=== PATIENT | male | born 1940 | race Caucasian/White ===

== ENCOUNTER 2024-09-06 17:41 | Inpatient (IN) | payer MEDICARE, SELFPAY ==
[2024-09-03 13:01] VITALS: BP 137/63
[2024-09-03 13:12] VITALS: BMI 30.2
--- NOTE | 2024-09-03 13:36 | ED.GENMED ---
History of Present Illness
General
Chief Complaint: Failure to Thrive
Source: patient
Exam Limitations: none
Time Seen by Provider: 09/03/24 12:59
Nursing documentation reviewed up to this point in time: agreed with
History of Present Illness
History of Present Illness:
84 yr old male brought by EMS for evaluation. Patient as per MS apparently lives alone in his apartment. it is reported by EMS that patient was living in very unsafe living conditions and patient was yelling and therefore someone called EMS.
Patient presents awake alert. When I ask him why is he is here, he does not know. He does mention that his right' deltoid hurts from a previous fall.
Pt reports he gets around with a motorized scooter.
On exam patient has an obvious swollen and red left leg but he has no complaints. He is unable to tell me how long this has been read and tells me he did not realize it was red. He denies any pain.
Phy Exam
General Physical Exam
General Presentation: no apparent distress
General age: appears stated age
General Skin: warm and dry
General Habitus: elderly
General Hydration: appears well hydrated
Cardiovascular Exam
Cardiovascular Exam: regular rate/rhythm
Course
Orders/Labs/Results
Orders:
Orders
09/03/24 13:31
IV Insert/Care/Rem.- Treatment PRN
Urinalysis Reflex To Culture Urgent
Venous Doppler Lwr Ext Left [US Periph Venous LOWER Ext LT] Urgent
Comment:
Reason For Exam: swelling /redness
09/03/24 14:05
Complete Blood Count/With Diff Urgent
Comprehensive Metabolic Panel Urgent
09/03/24 Dinner
Regular
At Your Request: Full Participation
09/03/24 15:18
Shoulder, Right, Trauma [CR Shoulder, Trauma - Right] Urgent
Comment:
Reason For Exam: trauma
09/03/24 15:22
Chest [CR Chest - 2 Views ] Urgent
Comment:
Reason For Exam: weak
09/03/24 15:25
Electrocardiogram (*1) Stat
Reason for Study: Other
Other Reason for Exam: chest pain
EKG- Treatment ONCE
09/03/24 15:26
CefTRIAXone [Rocephin] 1,000 mg IV NOW STA
09/03/24 15:29
CeFAZolin 1 GRAM [Ancef] 1 gram in 5 ml IV NOW
09/03/24 16:04
Admit/Transfer Patient As Directed
Co-Sign Provider:
Level of Care: Observation services
Assign to:: Medical/Surgical
Physician / Group: Adis Gutierrez
Diagnosis: Left leg cellulitis
PRN Pain Medication Management As Directed
May give lesser potent ordered pain med per pt: Yes
preference::
Protocol:: Medication orders for pain may be administered in a
manner that supports deferring to patient preference
when the pt is:
- Requesting an ordered lesser potent pain medication.
Least to most potent pain medications are defined
as: acetaminophen < NSAID < tramadol < opioids
(morphine, oxycodone, hydromorphone).
- Requesting a lesser dose of the same medication IF
ORDERED.
- Requesting a less intrusive route of administration
if both routes are prescribed by the provider (PO <
IV).
09/03/24 16:05
Code Status As Directed
Resuscitation Status: Full Code
09/03/24 16:07
CeFAZolin 2 GRAM [Ancef] 2 grams in 10 ml IV NOW
09/03/24 17:45
Acetaminophen [Tylenol] 650 mg PO Q4HPRN PRN
Bisacodyl [Dulcolax] 10 mg RECTAL U46BBAN PRN
Docusate W/Senna [Senokot-S] 1 tablet PO BIDPRN PRN
Furosemide [Lasix] 20 mg IV ONCE ONE
Polyethylene Glycol Powder [Miralax] 17 grams PO DAILYPRN PRN
09/03/24 17:45
WOUND/OSTOMY CONSULT Routine
Reason for Consult: leg wound
Activity As Directed
Activity Level: Bedrest
Vital Signs As Directed
Frequency: Per unit guidelines
Occupational Therapy Consult [Ot Eval And Treat] Routine
DX Deep Vein Thrombosis Video Routine
09/03/24 18:00
Enoxaparin Sodium [Lovenox] 40 mg SC QPM
09/04/24 01:00
CeFAZolin 2 GRAM [Ancef] 2 grams in 10 ml IV Q8H
09/04/24 06:00
Basic Metabolic Panel IN AM
Complete Blood Count/No Diff IN AM
Abnormal Lab Results
09/03/24
14:05
Absolute Lymphs (auto) 0.8 L 10^3/uL
(1.2-3.4)
Neutrophils % 75.3 H %
(42.2-75.2)
Lymphocytes % 12.4 L %
(20.5-51.1)
Chloride 108 H mmol/L
(98-107)
Total Protein 5.8 L g/dl
(6.3-8.2)
Albumin 3.3 L g/dl
(3.5-5.0)
09/03/24 14:05
09/03/24 14:05
Vital Signs
Initial and Last Documented VS:
Initial Vital Signs
Temp Resp BP
98.0 F 20 137/63
09/03/24 13:01 09/03/24 13:01 09/03/24 13:01
Last Documented Vital Signs
Temp Pulse Resp BP Pulse Ox
98.1 F 72 16 151/73 100
09/03/24 18:04 09/03/24 18:29 09/03/24 18:04 09/03/24 18:29 09/03/24 18:04
MDM/Problems Addressed
MDM/Problems Addressed:
As documented patient is an 84-year-old male who was brought by EMS, as per EMS patient randomly scream in his room and EMS was called.
Pt is not aware why he is here. He mentions that his right shoulder hurts from a fall 'a while ago' but other best has no complaints. On exam pt has significant swelling and redness to left leg nontender. Patient is afebrile his white count is
normal; his ultrasound shows severe cellulitis of the extremity with diffuse subcutaneous edema however no DVT.
Patient will likely need case management EMS reported the patient was in very dirty unsafe conditions.
Patient does live alone. He does report he has Meals on Wheels and gets around with a motorized scooter.
He is adamant that he' does not want to go into home.'
*Radiology
Radiology exam reviewed: radiology read reviewed
*Pulse Oximetry
Patient hypoxic: no
*EKG
Interpreted by ED Provider?: Yes
Interpretation: normal
Heart Rate: 77
Rate: normal
Rhythm: sinus
Ischemia: non-specific ST changes
*Critical Care Note
Total Time (30-74mins, 75-104mins- exclusive of procedures): Not Applicable
ED Attending Note
-
Portions of this chart may have been created with voice recognition software.� Occasional wrong word or��sound alike� substitutions may have occurred due to the inherent limitations of voice recognition software.
Discharge Plan
Departure
Patient Disposition: Admit
Date of Disposition: 09/03/24
Time of Disposition: 15:44
Admit to: Med/Surg
Admit to doctor: hospitalist
Presentation/result/management discussed w/ accepting MD/DO: Hospitalist
Patient with high blood pressure during this ER visit?: Yes
Condition: Fair
Covid-19: Not Applicable
Discharge Problem:
Cellulitis of left leg
Interventions
Interventions:
*Risk Screen - Suicide Last Done: 09/03/24 13:13
*General Assessment Last Done: 09/03/24 13:13
*Neglect/Abuse Screening Last Done: 09/03/24 13:18
*ED COVID-19 Vaccine History Last Done: 09/03/24 13:13
*Nursing Disposition Last Done: 09/03/24 18:30
Discharge Date and Time
Discharge Date/Time: 09/03/24 18:00
[2024-09-03 14:21] LABS: % Basophils 0.4 % (0-2); % Eosinophils 3.1 % (0-6); % Immature Granulocytes 0.3 % (0-0.5); % Lymphocytes 12.4 % (20.5-51.1); % Monocytes 8.5 % (1.7-9.3); % Neutrophils 75.3 % (42.2-75.2); Absolute Eosinophils 0.2 10^3/uL (0-0.7); Absolute Lymphocytes 0.8 10^3/uL (1.2-3.4); Absolute Monocytes 0.6 10^3/uL (0.1-0.6); Hematocrit 44.2 % (39.0-52.0); Hemoglobin 14.7 g/dL (13.0-18.0); Mean Corp Hgb Conc. 33.3 g/dL (33.0-37.0); Mean Corpuscular Hgb 30.8 pg (27.0-31.0); Mean Corpuscular Volume 92.7 fL (80.0-94.0); Mean Platelet Volume 10.3 fL (7.4-10.4); Nucleated Red Blood Cells % 0 % (-); Platelet Count 203 10^3/uL (130-400); Red Blood Cell Count 4.77 10^6/uL (4.70-6.10); White Blood Cell Count 6.7 10^3/uL (4.8-10.8)
[2024-09-03 14:40] LABS: ALT (SGPT) 25 U/L (0-50); AST (SGOT) 31 U/L (17-59); Albumin 3.3 g/dl (3.5-5.0); Alkaline Phosphatase 91 U/L (38-126); Blood Urea Nitrogen 12 mg/dl (9-20); Calcium 9.3 mg/dl (8.4-10.2); Carbon Dioxide 27 mmol/L (22-30); Chloride 108 mmol/L (98-107); Estimated Creatinine Clearance 65 ml/min; Glucose 82 mg/dl (70-99); Potassium 4.4 mmol/L (3.5-5.1); Sodium 139 mmol/L (135-145); Total Bilirubin 0.7 mg/dl (0.2-1.3); Total Protein 5.8 g/dl (6.3-8.2); eGFR > 60.00
[2024-09-03 15:39] VITALS: BP 128/58
[2024-09-03 15:45] VITALS: BP 128/58
--- NOTE | 2024-09-03 16:09 | HPS.HSE ---
Family Physician
-
Family Physician: INTERVIEWE UNKNOWN - PT NOT
Chief Complaint
-
behavior issues
History of Present Illness
Patient is 84-year-old male with past medical history of essential hypertension, hyperlipidemia, alcohol use, BPH was brought in by EMS after neighbors called ambulance on him because patient was noted to be yelling. Details are not very clear why
EMS sent patient to ER. In ER patient is is alert and oriented to time place and person, obviously not happy with the whole situation. Patient is not voicing any active medical issues patient lives by himself in an apartment which was reported by
EMS to be in the bad situation. Patient does not have any family or friend to help.
Patient have history of fall at some point in the past and having difficulty using the right arm. Evidently patient use electric scooter to get around but battery is .
In ER on exam patient was noted to having some left leg swelling/erythema. Patient is afebrile. Patient have some wound on left knee - not infected.
Not voicing any cardiopulmonary complaints.
Medical History
Past Medical History
Past Medical History: Reports Other
Additional Past Medical History:
essential hypertension, hyperlipidemia, alcohol use, BPH
Past Surgical History: Reports Other
Social History
Tobacco: Non-smoker
Alcohol: Occasional
Drug: None
Employment: Employed
Family History
Family History: Not pertinent
Allergies / Home Medications
Allergies reflects when Allergies were last updated in [facility].
Home Medications with original date entered in [facility]
Allergy/Medication List:
Allergies
Allergy/AdvReac Type Severity Reaction Status Date / Time
pollen extracts Allergy Unknown STUFFY Verified 07/27/08 15:46
[Pollen Extracts] NOSE AND
EXCESSIVE
SNEEZING
Home Medications
Fish Oil 2 cap PO DAILY 07/27/08
finasteride 5 mg tablet 1 tab PO DAILY 07/27/08
geriatric multivitamin-min 1 cap PO DAILY 07/27/08
metoprolol succinate 25 mg tablet,extended release 24 hr 25 mg PO DAILY 09/03/24
rosuvastatin 40 mg tablet 40 mg PO DAILY 09/03/24
Review of Systems
-
A 12 point ROS was completed and negative except as noted: Yes
Physical Exam
Vital Signs
Vital Signs
Temp Pulse Resp BP Pulse Ox
98.0 F 79 15 128/58 95
09/03/24 13:01 09/03/24 15:45 09/03/24 15:45 09/03/24 15:45 09/03/24 15:47
Physical Exam
General: No Apparent Distress
HEENT: Atraumatic
Respiratory: Clear
Cardiac: S1/S2 and Regular Rhythm; No Murmur or Rub
GI: Soft, Non Tender and Non Distended; No Organomegaly
Musculoskeletal: Edema, Left Lower Extremity (scratch edmund on the skin, superifical wound on knee), Edema, Right Lower Extremity and Other (Unable to lift right shoulder)
Skin: No Rash
Neuro: Nonfocal/grossly intact
Laboratory Results
-
09/03/24 14:05
09/03/24 14:05
Laboratory Results
Total Bilirubin 0.7 mg/dl (0.2-1.3) 09/03/24 14:05
AST 31 U/L (17-59) 09/03/24 14:05
ALT 25 U/L (0-50) 09/03/24 14:05
Alkaline Phosphatase 91 U/L (38-126) 09/03/24 14:05
Impression/Plan
-
1. Left leg cellulitis
Superficial skin abrasion
Bilateral lower extremity edema, suspecting lymphedema
-No signs of systemic infection
-Patient unable to provide any detailed information about how long patient has chronic
-Peripheral vascular ultrasound negative
-Patient got IV Ancef in ER continue for now
-leg elevation when in bed
-wound care ordered.
2. Right shoulder pain
-Shoulder x-ray official report pending
-Suspecting rotator tendon injury after fall in the past
-OT evaluation requested
3. Inadequate housing condition
-Patient have electric scooter which is not able to be charged? floral manager asked to look into it
-House condition is disheveled according to EMS
4. HLD
-Previous home med list showing patient was on Crestor, not currently taking it
5. BPH
-Previous med list showing finasteride, not on it
6. Presumed essential hypertension
-Not taking recorded Toprol-XL from previous visits. Blood pressure controlled at this point monitor
DVT prophylaxis -Lovenox
Full code
Total time spent : 77 mins
I personally saw and examined the patient.
I have reviewed all diagnostic interpretations and treatment plans as written.
Time includes patient management by me, time spent at the patients bedside, time to review lab and imaging results, discussing patient care, documentation in the medical record, and time spent with the family or caregiver and discussing care plan
with RN/Consultants.
[2024-09-03] MEDS: ANCEF 10 IV (16:24)
--- NOTE | 2024-09-03 17:54 | CM ---
CM was made aware that patient was brought from his home in [place], [place]. As per EMS, patient's home was hoarded and in deplorable condition. Patient stated that he does not have a phone in his home and he is unable to get around the apartment
because the cord on his scooter is broken. He has been calling out for his neighbors to assist him when needed.
CM will follow for further needs.
[2024-09-03 18:04] VITALS: BP 151/73
[2024-09-03] MEDS: LASIX 20 MG IV (18:29)
[2024-09-03] MEDS: LOVENOX SC ×2 (18:30→18:34)
--- NOTE | 2024-09-03 18:46 | PTCARENOTE ---
Pt admitted from ED, pulled over from stretcher to bed. Pt angry and argumentative at times. LLE red and swollen, pt does not know when this started as he didn't know his leg was red and swollen. c/o R shoulder pain 'only when he moves'. Assisted x2
to turn in bed. Pt malodorous, states he is continent, given urinal. Explained the purpose of Lasix, agreeable to medication. Pt adamantly refused SQ Lovenox despite education, MD augustin texted.
--- NOTE | 2024-09-03 20:15 | PTCARENOTE ---
Found large knife in pts bed, given to security. Security stating unable to search belongings- belongings placed in closet. Pt on bed alarm currently.
[2024-09-03 23:55] VITALS: BP 143/54
[2024-09-04] MEDS: ANCEF 10 IV ×3 (01:41→18:10)
[2024-09-04 06:00] VITALS: BMI 28.3
[2024-09-04 07:54] LABS: Hematocrit 44.3 % (39.0-52.0); Mean Corp Hgb Conc. 33.9 g/dL (33.0-37.0); Mean Corpuscular Hgb 30.8 pg (27.0-31.0); Mean Platelet Volume 10.4 fL (7.4-10.4); Platelet Count 206 10^3/uL (130-400); Red Blood Cell Count 4.87 10^6/uL (4.70-6.10); White Blood Cell Count 6.7 10^3/uL (4.8-10.8)
[2024-09-04 08:00] VITALS: BP 139/59
[2024-09-04 08:19] LABS: Blood Urea Nitrogen 12 mg/dl (9-20); Calcium 9.2 mg/dl (8.4-10.2); Carbon Dioxide 27 mmol/L (22-30); Chloride 104 mmol/L (98-107); Estimated Creatinine Clearance 60 ml/min; Glucose 92 mg/dl (70-99); Potassium 3.9 mmol/L (3.5-5.1); Sodium 140 mmol/L (135-145); eGFR > 60.00
--- NOTE | 2024-09-04 10:35 | W.PN.HOSP.TC ---
Today's Communication/Plan
-
discharge planning
Assessment / Plan
Assessment / Plan
Right shoulder xr
1. No radiographic evidence for acute fracture or dislocation.
2. 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
3. Full-thickness tear of the right rotator cuff with mild superior subluxation of the right humeral head.
4. 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

1. Left leg cellulitis
Superficial skin abrasion
Bilateral lower extremity edema, suspecting lymphedema
-No signs of systemic infection
-Patient unable to provide any detailed information about how long patient has chronic
-Peripheral vascular ultrasound negative
-Patient got IV Ancef in ER continue for now
-leg elevation when in bed
-wound care ordered.
-LLE looks much calmer today, swelling persists
2. Right shoulder pain
-Shoulder x-ray official report pending
-Suspecting rotator tendon injury after fall in the past
-pt/ot ordered.
3. Inadequate housing condition
-Patient have electric scooter which is not able to be charged? disability case manager asked to look into it
-House was in disarray according to EMS
4. HLD
-Previous home med list showing patient was on Crestor, not currently taking it
5. BPH
-Previous med list showing finasteride, not on it
6. Presumed essential hypertension
-Not taking recorded Toprol-XL from previous visits. Blood pressure controlled at this point monitor
DVT prophylaxis -Lovenox
Full code
09/04 Patient unclear who is his PCP, likely havent seen any one in years. have decision making capacity and declining LTC placement.
Anticipated Discharge: Within 24 hours
Subjective/Interval History
-
Date of Service: September 04, 2024
no complains overnight
Left leg better
Objective Data
-
Labs:
Laboratory Results
09/04/24
07:29
WBC 6.7
Hgb 15.0
Hct 44.3
Plt Count 206
Sodium 140
Potassium 3.9
Chloride 104
Carbon Dioxide 27
BUN 12
Creatinine 0.9
Glucose 92
Calcium 9.2
Vital Signs:
Vital Signs
Temp Pulse Resp BP Pulse Ox
98.1 F 65 16 139/59 99
09/04/24 08:00 09/04/24 08:00 09/04/24 08:00 09/04/24 08:00 09/04/24 08:00
I&O
09/03/24 09/04/24 09/05/24
06:59 06:59 06:59
Output Total 1325 / 1325
Balance -1325 / -1325
Review of Systems
-
Respiratory: Reports No Symptoms
Cardiac: Reports No Symptoms
Abdomen/GI: Reports No Symptoms
Physical Exam
-
General: No Apparent Distress and Comfortable
HEENT: Negative Oxygen
Respiratory: Clear to Auscultation
Cardiac: Regular Rhythm and S1/S2; Negative Murmur or Rub
GI: Soft, Nontender and Nondistended
Musculoskeletal: Edema, Right Lower Extrem and Edema, Left Lower Extrem (erythema, dry skin)
Neuro: Awake, Alert, Oriented, No Motor Deficits and Nonfocal/Grossly Intact
Psych: Calm
[2024-09-04 10:44] LABS: Urine Albumin Negative (Neg - Trace); Urine Bilirubin Negative (Negative); Urine Character Clear (Clear); Urine Color Yellow; Urine Glucose Negative (Negative); Urine Ketone Negative (Negative); Urine Leukocyte Negative (Negative); Urine Nitrite Negative (Negative); Urine Occult Blood Negative (Negative); Urine Urobilinogen Negative (Neg - 1+)
[2024-09-04 13:03] VITALS: BP 158/53; BP 159/53; BP 159/68; PULSE 90; O2SAT 90; O2SAT 98
[2024-09-04] MEDS: LASIX 20 MG PO (14:24)
[2024-09-04 15:40] VITALS: BP 150/50
--- NOTE | 2024-09-04 16:18 | CM ---
Patient seen at bedside
OBS status-reviewed form with patient. in chart
Dx: Left leg cellulitis
IA completed---previous CM note inadequate housing condition
States he lives at [facility] in [address]
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
DME: Walker, cane, power scooter
He states he receives meals on wheels
Stated has a sister who lives in [place] who he is not in touch
CM left message for contact Margarita Valverde (friend)
Denies VN/Rehab
PT/OT rec SNF
[facility] but has not been there in 2 years
Pharmacy: unable to obtain from patient
PLAN: PT/OT rec SNF
[2024-09-04] MEDS: LOVENOX SC (18:13)
--- NOTE | 2024-09-04 19:10 | PTCARENOTE ---
Received patient this am AAOx2. Pt forgetful and easily agitated. Tolerated diet well. OOB to chair with assistance x2. Pt refused Lovenox injection. Pt picked scab off left knee abrasion. Cleaned with NSS, adaptic applied an foam. Pt repositioned.
Made patient comfortable. Cont to assess patient status.
[2024-09-04 23:20] VITALS: BP 155/66
[2024-09-05] MEDS: ANCEF 10 IV ×3 (00:56→17:41)
[2024-09-05 05:03] VITALS: BMI 28.0
[2024-09-05 07:29] VITALS: BP 125/59
--- NOTE | 2024-09-05 09:53 | CM ---
Addendum entered by Jaya Manning 09/05/24 14:00:
CM spoke w/ Hailey/[facility] APS. Per Hailey, [facility] is familiar w/ pt, has offered pt services in the past, Hailey was unable to confirm w/ me if pt accepted any services. Hailey shared there were calls made to pt in the past, pt is not
currently open w/ services. CM shared concerns in the home as EMS reported the home is inadequate and pt lacks support. CM confirmed that pt has decision making capacity per chart, Hailey stated pt doesn't meet criteria for a referral as his
capacity is not a concern, unless there is abuse, neglect or exploitation.
CM will speak w/ pt to inquire on scooter supplier to see if he can get assistance w/ blood bank specialist
Addendum entered by Jaya Manning 09/05/24 13:59:
d
Original Note:
Chart reviewed for d/c planning and hospital course updates. Per chart, pt lives alone in an apartment in [place], [place]. Pt's home was reported as inadequate conditions. Pt mobilizes w/ an electric scooter at baseline, however, scooter's blood bank specialist
is broken and cannot hold a charge so pt has been having difficulties navigating in his apartment. Pt has also been experiencing falls due to his scooter not being 100% operational due to blood bank specialist being broken. Therapy recommending skilled rehab at
this time. Pt is currently admitted as OBS, does not have a qualified inpatient stay, and is not apart of the Medicare [employer] program, therefore pt will not have a covered rehab stay unless he private pays.
Pt appears to have limited familial support, pt receives Meals on Wheels services, and has not seen a PCP in years. CM attempted contact w/ pt's friend listed as his contact, left message.
CM placed call to [place] [facility] - Division of Aging Services- [phone], left request for a call back to inquire if pt is open for services and/or to make a report for safety concerns.
Pt is stable for d/c at this time. CM updated hospitalist on disposition needs.
--- NOTE | 2024-09-05 11:10 | WOUNDNOTE ---
WON RN note: Patient admitted with cellulitis of L leg, s/p fall onto R shoulder.
See H&P for complete history. Lives alone in an apt, gets meals on wheels.
PMH: Stroke, HTN,HI,CAD,SPINAL STENOSIS, Urinary incontinence-dribbles, chronic back and neck pain.
Wound Location and type/assessment: Patient admitted with: cellulitis of L leg. L leg with 2-3+ edema compared to R leg. Dry skin on legs with few abrasions mainly L knee and L lateral upper thigh. + palpable pedal pulses, wearing Medigrip size G
knee high, already on order. Heels are intact, turned with assist of PCT Jose Rafael. Sacrum and buttocks with chronic discolored skin, suspect from prolonged sitting. Mild MASD of sacrum/gluteal cleft, no open ulcers.
Appetite: Fair.
Pressure redistribution devices in place: Versa care air, turning schedule and pillow under calves.
Plan: Applied skin prep and Exuderm thin to L knee and L thigh. Will order mineral oil for moisturizer to legs. Added lisa wrap over Medigrip knee high on L leg only. Pillow placed under calves and repositioned onto R semi side lying position. Will
confirm orders with hospitalist and updated nurse. Updated care plan and will follow as needed.
Note to case management of equipment requested for discharge: VN/care givers if going home.
--- NOTE | 2024-09-05 14:22 | W.PN.HOSP.TC ---
Today's Communication/Plan
-
Disposition issue
Assessment / Plan
Assessment / Plan
NAD
Scleral Anicteric
MMM
No JVD
CTABL
RRR, S1/S2
Obese, soft, NT, ND, BS+
Warm, Dry, bilateral lower extremities wrapped in Luis Armando bandage and compression stocking
AAOx3
Calm
Right shoulder xr
1. No radiographic evidence for acute fracture or dislocation.
2. 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
3. Full-thickness tear of the right rotator cuff with mild superior subluxation of the right humeral head.
4. 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

1. Left leg cellulitis
-Continue Ancef, transition to Keflex on discharge or complete full 10-day course of antibiotic
-Superficial skin abrasion continue wound care
-Bilateral lower extremity lymphedema outpatient lymphedema clinic follow-up
-DVT study negative
-Elevate leg in bed
2. Right full-thickness rotator cuff tear
-Outpatient orthopedic follow-up
3. Inadequate housing condition
-Electric scooter which is not able to be charged? manager medical asked to look into it
-House was in disarray according to EMS
-Case management working with APS for his specific county
4. HLD
-Previous home med list showing patient was on Crestor, not currently taking it
5. BPH
-Previous med list showing finasteride, not on it
6. Presumed essential hypertension
-Not taking recorded Toprol-XL from previous visits. Blood pressure controlled at this point monitor
DVT prophylaxis -Lovenox
Full code
09/04 Patient unclear who is his PCP, likely havent seen any one in years. have decision making capacity and declining LTC placement.
Anticipated Discharge: 24 - 48 hours
Subjective/Interval History
-
Date of Service: September 05, 2024
Seen and examined. No new complaints. No acute overnight events.
Refuses to go to SNF. Wants to go home.
Social work working with his specific [facility] in [place], EPS division to figure out his housing situation as it was reported to be an adequate and in a deplorable condition. Along with his motorized scooter not working properly.
Objective Data
-
Vital Signs:
Vital Signs
Temp Pulse Resp BP Pulse Ox
98.6 F 58 20 125/59 100
09/05/24 07:29 09/05/24 07:29 09/05/24 07:29 09/05/24 07:29 09/05/24 08:00
I&O
09/04/24 09/05/24 09/06/24
06:59 06:59 06:59
Intake Total 360 / 360
Output Total 1850 / 1850
Balance -1490 / -1490
[2024-09-05 15:02] VITALS: BP 142/61
[2024-09-05] MEDS: LOVENOX SC (17:41)
[2024-09-05 23:00] VITALS: BP 139/101
[2024-09-06] MEDS: ANCEF 10 IV ×2 (01:05→10:01)
[2024-09-06 06:00] VITALS: BMI 27.6
[2024-09-06 08:16] VITALS: BP 136/65
[2024-09-06] MEDS: HYDROPHOR 1 APPLIC TOPICAL (09:57)
--- NOTE | 2024-09-06 13:29 | CM ---
Safe disposition efforts cont to ensure pt is d/c home w/ some support or assistance.
CM met w/ pt bedside. Pt stated he doesn't recall when he got his scooter or the make and model of it in order to verify what type of acid crane operator he needs, however, pt has a manual WC as alternative. Pt stated he does not have a telephone in the home
and does not have any family/friend support. CM inquired how pt has been caring for himself independently, pt simply stated 'I've been doing it all this time'. Pt refused to consider a LTC or assisted living facility stating he wants to be
independent. Pt stated he is disabled and receives social security and that no one manages his money. Pt stated his rent is taken out automatically. CM provided pt w/ transportation options that services senior [facility] residents. Pt stated
he doesn't have any money to pay for rides. CM stated the transportation arranged through [facility] has a transportation program that provides free Lyft and Uber rides to appointments. Pt could not identify his PCP or where/when he was last
seen. Pt agreeable for CM place call to [facility] as it is believed that pt is/was a pt there. CM called to [phone], spoke w/ a blade filer who was able to confirm that pt was last seen 05/2023, CM was able to assist pt w/ making an appt
w/ next available being 09/16 at 10:30 am. Pt agreeable to that appt day and time but has concerns of getting to and from, per blade filer senior care specialist [facility] CM was transferred to [facility]/senior care specialist, left message.
Pt will be mailed a packet and appt reminder paperwork. Pt stated he doesn't check his mail daily and it will be difficult getting to it considering his scooter does not work. Pt stated he could use his manual WC but due to his shoulder injury, it
will be too painful to wheel himself to his mailbox.
--- NOTE | 2024-09-06 15:27 | W.PN.HOSP.TC ---
Today's Communication/Plan
-
Assessment / Plan
Assessment / Plan
NAD
Scleral Anicteric
MMM
No JVD
CTABL
RRR, S1/S2
Obese, soft, NT, ND, BS+
Warm, Dry, bilateral lower extremities wrapped in Luis Armando bandage and compression stocking
AAOx3
Calm
Right shoulder xr
1. No radiographic evidence for acute fracture or dislocation.
2. 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
3. Full-thickness tear of the right rotator cuff with mild superior subluxation of the right humeral head.
4. 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

1. Left leg cellulitis
-Continue Ancef, transition to Keflex on discharge or complete full 10-day course of antibiotic
-Superficial skin abrasion continue wound care
-Bilateral lower extremity lymphedema outpatient lymphedema clinic follow-up
-DVT study negative
-Elevate leg in bed
2. Right full-thickness rotator cuff tear
-Outpatient orthopedic follow-up
3. Inadequate housing condition
-Electric scooter which is not able to be charged? housing case manager asked to look into it
-House was in disarray according to EMS
-Case management working with APS for his specific county
4. HLD
-Previous home med list showing patient was on Crestor, not currently taking it
5. BPH
-Previous med list showing finasteride, not on it
6. Presumed essential hypertension
-Not taking recorded Toprol-XL from previous visits. Blood pressure controlled at this point monitor
DVT prophylaxis -Lovenox
Full code
09/04 Patient unclear who is his PCP, likely havent seen any one in years. have decision making capacity and declining LTC placement.
Anticipated Discharge: Within 24 hours
Subjective/Interval History
-
Date of Service: September 06, 2024
Seen and examined. No new complaints. No acute overnight events.
Objective Data
-
Vital Signs:
Vital Signs
Temp Pulse Resp BP Pulse Ox
97.5 F 59 18 136/65 98
09/06/24 08:16 09/06/24 08:16 09/06/24 08:16 09/06/24 08:16 09/06/24 08:16
I&O
09/05/24 09/06/24 09/07/24
06:59 06:59 06:59
Intake Total 360 / 360 300 / 300
Output Total 1850 / 1850 1375 / 1375 150 / 150
Balance -1490 / -1490 -1075 / -1075 -150 / -150
[2024-09-06] MEDS: LOVENOX SC (18:20)
[2024-09-06] MEDS: ANCEF IV (18:20)
--- NOTE | 2024-09-06 18:20 | PTCARENOTE ---
This RN attempted to give pt antibiotic. Pt adamantly refused stating 'I've had enough.' RN educated patient on importance of taking antibiotics as prescribed Pt continues to refuse despite medication education.
[2024-09-06 23:11] VITALS: BP 132/60
[2024-09-07] MEDS: ANCEF 10 IV ×3 (01:10→17:15)
[2024-09-07 07:46] VITALS: BP 122/59
[2024-09-07] MEDS: HYDROPHOR 1 APPLIC TOPICAL (08:58)
--- NOTE | 2024-09-07 09:39 | CM ---
CM placed call to [facility] coding quality coordinator, Marilia [phone] to inquire about placing referral for pt. Per Marilia, they are not taking any new referrals at this time due to limited staffing.
CM placed a call to [facility], spoke w/ intake and explained pt is without family, friend, community support and is needing home services to include PT, OT, SUPPLY OFFICER, registered medical transcriptionist. CM was informed that flocculator operator are limited in pt's area and
will replace w/ OT. CM informed that pt has a following PCP at [facility] w/ appt scheduled for 09/16 and if pt is able to be serviced prior to appt. CM was told that as long as pt's PCP is willing to sign off on HH orders, they can accept for
services prior to appt. CM informed that pt is without a phone at this time, intake shared that outreach for an initial intake would be difficult as they no longer do pop up home visits due to COVID, safety, etc. Pt's referral can still be accepted
and reviewed by clinical but without a phone, it will be difficult to do an intake w/ pt.
CM updated hospitalist, sharing concerns about pt and lack of support and assistance that he has. Hospitalist to order psych consult to evaluate pt's capacity at this time.
Plan: Pending psych consult
--- NOTE | 2024-09-07 12:08 | CON.MD ---
Addendum entered and electronically signed by Noemy Pierre MD 09/07/24 12:27:
nb dr nura luque also found him to have capacity.
Original Note:
Consultation - Medical
-
patient seen chart reviewed. spoke at length with nursing and with case mgt. the patient is an 84 year old male who was brought in by ems as a neighbor called the police bc he was yelling . he was found to have swollen area on his left leg as well
as a rotator cuff tear. patient has hx of htn hld etoh use in the past and arthritis. this consult was ordered for capacity. the patient has refused snf at this point. he admits he cannot walk but does not know why. he is aware of poor balance but
can stand if he can hold on to something. he lives in an apartment complex called [facility] in [place]. he explained to me that he is able to care of all of his needs by maneuvering around with a motorized scooter. his scooter
thought is not working now bc he needs a new customs examiner which he has been unable to secure. he does not currently have a phone. he had a phone but it is 'lost'. he says he received meals on wheels which is enough food for each day and if he is hungry
he was able to get something delivered but now his phone is gone. he is adamantly opposed to going anywhere but home at this point and says he is 'tired' of this place. there is a woman [facility] ([place] whom he has been calling to help
with phone / scooter but she has not been helpful of late. says 'you have to tell her three times what she should 'get' on the first go around. the patient has no friends or relatives. he never no kids he has a sis in [place] but has not been
in touch for years. 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 he says 'my father lived to 100 yrs and three months...i will live to 90 at least. ' he reads to pass the time. he says he is not depressed or anxious. he has not had psych issues in the past.
he is fully oriented knows the president 'i'm a lifelong libertarian i never voted democratic....' he denies hallucinations. no psychosis that i could see. patient says he needs no meds so he does not know his local pharmacy name .
past psych hx none
medical hx htn hld hx in the past of etoh use denies abuse osteoarth rotator cuff injury labs look ok. did not see b12 folate or tsh which i will order hx bph w finasteride rx which he does not take
fh non contributory
social hx see above
mse alert ox3 more or less cooperative he was a bit on the ornery side . speech and thought process goal oriented mood is irritable affect a little labile no si no psychosis aver intelli insight judgment fair
dx adjustment d/o
recommendations i do think patient has capacity to make his own decisions. he has made it to 84 at this point as he points out and does not at this point have life threatening illness at this moment. that said he needs assist with certain issues.
he explained to me how he gets to bathroom with his scooter which needs to be functional. he needs a phone. he said he would be very amenable to in home therapy but he needs a phone to do this. i would say he needs social service /case management assistant
services at this point and if they could remedy these two factors i would dc him to home. if he needs an antibiotic it could be called to local pharm paid for with his insurance delivered here to for him to take at home. he also needs readers
(glasses) which i will him later today. psych will sign off.
--- NOTE | 2024-09-07 13:10 | W.PN.HOSP.TC ---
Today's Communication/Plan
-
Assessment / Plan
Assessment / Plan
NAD
Scleral Anicteric
MMM
No JVD
CTABL
RRR, S1/S2
Obese, soft, NT, ND, BS+
Warm, Dry, bilateral lower extremities wrapped in Luis Armando bandage and compression stocking
AAOx3
Calm
Right shoulder xr
1. No radiographic evidence for acute fracture or dislocation.
2. 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
3. Full-thickness tear of the right rotator cuff with mild superior subluxation of the right humeral head.
4. 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

1. Left leg cellulitis
-Continue Ancef, transition to Keflex on discharge or complete full 10-day course of antibiotic
-Superficial skin abrasion continue wound care
-Bilateral lower extremity lymphedema outpatient lymphedema clinic follow-up
-DVT study negative
-Elevate leg in bed
2. Right full-thickness rotator cuff tear
-Outpatient orthopedic follow-up
3. Inadequate housing condition
-Electric scooter which is not able to be charged? slot shift manager asked to look into it
-House was in disarray according to EMS
-Case management working with APS for his specific county
4. HLD
-Previous home med list showing patient was on Crestor, not currently taking it
5. BPH
-Previous med list showing finasteride, not on it
6. Presumed essential hypertension
-Not taking recorded Toprol-XL from previous visits. Blood pressure controlled at this point monitor
DVT prophylaxis -Lovenox
Full code
Will continue to work with social work and case management to figure out how to get back to get him antibiotics along with outpatient routine follow-up and care.
He does not have a phone nor transportation. His motorized scooter is not working at this time.
Anticipated Discharge: Within 24 hours
Subjective/Interval History
-
Date of Service: September 07, 2024
Seen and examined. No new complaints. No acute overnight events.
Objective Data
-
Vital Signs:
Vital Signs
Temp Pulse Resp BP Pulse Ox
98 F 66 18 122/59 100
09/07/24 07:46 09/07/24 07:46 09/07/24 07:46 09/07/24 07:46 09/07/24 08:50
I&O
09/06/24 09/07/24 09/08/24
06:59 06:59 06:59
Intake Total 300 / 300 960 / 960
Output Total 1375 / 1375 400 / 400
Balance -1075 / -1075 560 / 560
[2024-09-07 15:18] VITALS: BP 156/64
[2024-09-07] MEDS: LOVENOX SC (17:15)
[2024-09-07 23:55] VITALS: BP 142/53
[2024-09-08] MEDS: ANCEF 10 IV ×2 (00:23→09:30)
[2024-09-08 08:20] VITALS: BP 145/68
[2024-09-08] MEDS: HYDROPHOR 1 APPLIC TOPICAL (09:29)
--- NOTE | 2024-09-08 10:51 | W.PN.HOSP.TC ---
Today's Communication/Plan
-
More than 30 minutes spent in discharge including
Final examination of the patient
Summarizing hospital stay
Instructions for continuing care to all relevant caregivers
Preparation of discharge records, prescriptions, and referral forms
Total time spent (in minutes): 33mins
Assessment / Plan
Assessment / Plan
NAD
Scleral Anicteric
MMM
No JVD
CTABL
RRR, S1/S2
Obese, soft, NT, ND, BS+
Warm, Dry, bilateral lower extremities wrapped in Luis Armando bandage and compression stocking
AAOx3
Calm
Right shoulder xr
1. No radiographic evidence for acute fracture or dislocation.
2. 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
3. Full-thickness tear of the right rotator cuff with mild superior subluxation of the right humeral head.
4. 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

1. Left leg cellulitis
-Continue Ancef, transition to Keflex on discharge or complete full 10-day course of antibiotic
-Superficial skin abrasion continue wound care
-Bilateral lower extremity lymphedema outpatient lymphedema clinic follow-up
-DVT study negative
-Elevate leg in bed
2. Right full-thickness rotator cuff tear
-Outpatient orthopedic follow-up
3. Inadequate housing condition
-Electric scooter which is not able to be charged? manager baby asked to look into it
-House was in disarray according to EMS
-Case management working with APS for his specific county
4. HLD
-Previous home med list showing patient was on Crestor, not currently taking it
5. BPH
-Previous med list showing finasteride, not on it
6. Presumed essential hypertension
-Not taking recorded Toprol-XL from previous visits. Blood pressure controlled at this point monitor
DVT prophylaxis -Lovenox
Full code
DC home
Outpatient PCP follow up
[facility] written [facility]
Anticipated Discharge: Today
Subjective/Interval History
-
Date of Service: September 08, 2024
seen and examined. no new complaints. no acute overnight
wants to go home
-does not have transportation
-does not have a cell phone
-does not know pharamcy
Objective Data
-
Vital Signs:
Vital Signs
Temp Pulse Resp BP Pulse Ox
98 F 73 18 145/68 100
09/08/24 08:20 09/08/24 08:20 09/08/24 08:20 09/08/24 08:20 09/08/24 08:20
I&O
09/07/24 09/08/24 09/09/24
06:59 06:59 06:59
Intake Total 960 / 960 920 / 920
Output Total 400 / 400 980 / 980 150 / 150
Balance 560 / 560 -60 / -60 -150 / -150
--- NOTE | 2024-09-08 10:53 | W.DCSUMMARY ---
Discharge Summary
Discharge Data
Date of Admission: 09/03/24
Date of Discharge: 09/08/24
-
Pending Results: No
Hospital Course
84-year-old male with past medical history of essential hypertension, hyperlipidemia, alcohol use, BPH
Presented with left lower extremity cellulitis. Started on IV antibiotics with improvement. Transition to p.o. Keflex 500 mg 4 times daily x 10 additional days. Additionally had complaints of right shoulder pain shoulder x-ray was obtained
demonstrated a full-thickness rotator cuff tear. Outpatient orthopedic follow-up. Will need outpatient follow-up with PCP orthopedics. Will provide home care as well.
Wound Care Instructions
L knee and lateral thigh: clean with soap and water, skin prep periwound and then Exuderm thin(hydrocolloid) can secure with tegaderm as needed. Change q 2 days and prn drainage.
mineral oil to legs and feet daily.
Both legs: Medigrip size G knee high daily, can remove at hs
L leg only- lisa wrap over Medigrip knee high daily, can remove at hs
Follow up at wound care center if wounds not healing, call for an appointment.
Discharge Plan
-
Patient Disposition: Home with Home Care
Discharge Diagnosis/Procedures: LLE cellulitis
Diet: As tolerated
Activity: As tolerated
Activity Restrictions/Additional Instructions:
Presented with left lower extremity cellulitis. Started on IV antibiotics with improvement. Transition to p.o. Keflex 500 mg 4 times daily x 10 additional days. Additionally had complaints of right shoulder pain shoulder x-ray was obtained
demonstrated a full-thickness rotator cuff tear. Outpatient orthopedic follow-up. Will need outpatient follow-up with PCP orthopedics. Will provide home care as well.
Wound Care Instructions
L knee and lateral thigh: clean with soap and water, skin prep periwound and then Exuderm thin(hydrocolloid) can secure with tegaderm as needed. Change q 2 days and prn drainage.
mineral oil to legs and feet daily.
Both legs: Medigrip size G knee high daily, can remove at hs
L leg only- lisa wrap over Medigrip knee high daily, can remove at hs
Follow up at wound care center if wounds not healing, call for an appointment.
Referrals:
Connor Evans MD [Active] - in two to three weeks (shoulder full thickness rotator cuff tear)
UNKNOWN - PT NOT,INTERVIEWE [Unknown Provider] -
Prescriptions:
New
cephalexin 500 mg capsule
500 mg PO QID 10 Days Qty: 40 0RF
Continued
finasteride 5 MG tablet
1 tab PO DAILY
Patient Comments:
HAVEN'T TAKEN IN LONG TIME
geriatric multivitamin-min 1 CAP capsule
1 cap PO DAILY
Fish Oil
2 cap PO DAILY
metoprolol succinate 25 mg tablet extended release 24 hr
25 mg PO DAILY
rosuvastatin 40 mg tablet
40 mg PO DAILY
Discharge Orders:
Discharge Patient (As Directed); Ordered 09/08/24
Ordered By: Martin Gutierrez
Discharge Date and Time
Print Language: ITALIAN
--- NOTE | 2024-09-08 11:31 | CM ---
Addendum entered by Jaya Manning 09/08/24 12:16:
received a call from RUBEN [facility], who stated she has been calling around to locate pt this past week and she was not aware of him being in the hospital or which hospital he was taken to. Antonio stated she has
been following pt who is a and that she's been seeing pt weekly to explain his housing condition and his risk of homelessness as pt's apartment complex has been trying to get pt out since last October serving letters/warnings, etc. due to his
housing condition. Antonio additionally explained his home is covered in feces and urine, pt falls a lot, and drinks heavily. Antonio stated she has been trying to explain to pt his risk of homelessness and allowing the [facility] to place him in a higher
level of care but he refuses. Antonio stated pt is not able to return to his apartment as he has been evicted as of today. Antonio stated the [place] has called APS several times w/ no success or assistance. Antonio stated the [place] has connected pt w/ a
clinical social worker, behavior therapist and an aide. Antonio stated the aides were possibly not doing their job or pt was refusing the help. Antonio stated they are unable to place pt in a penitentiary because if he was to fall that'll be a risk for the [facility].
Exploring housing would be difficult due to pt being non-ambulatory and using a motorized scooter. Per Antonio, the [facility] does not know what else to do with pt but offer to place him in a nursing facility. provided director's phone number for
Antonio to call and inform director of this information.
Original Note:
Chart reviewed. Psych evaluated pt yesterday to determine capacity. Psych deemed pt having capacity to make his own decisions.
Pt is requiring PO abx at d/c, however, pt does not have a pharmacy and is limited in transportation to get medication. CM director spoke w/ hospital pharmacy and are able to fill pt's script and provide to pt to take at d/c. Pharmacy will need a
script from attending and approved payment through the [facility]. CM spoke w/ Haley/[facility] informing of pt needing abx and without means to get this himself. Haley agreeable to $8.40 cost, requested for CM to text name of abx, szymanski and pt initials.
Spoke w/ hospitalist, informed of script needed to be sent to pharmacy, hospitalist used tubing system to send. VN order placed, CM sent referral to [facility] via fax to [phone].
CM spoke w/ transportation technician about transport for pt. Determining which method would be appropriate and safe considering pt lives alone, assist x2, housing condition, etc.
CM to parts picker prescription from pharmacy today when ready. Pt will d/c home today once transportation is confirmed.
Plan: Home. [facility] HH referred to.
[2024-09-08 12:02] VITALS: BP 113/76
[2024-09-08 15:10] VITALS: BP 113/76
--- NOTE | 2024-09-08 16:37 | CM ---
[place] [facility]- no [place] policy on file.
[2024-09-08] MEDS: LOVENOX SC (17:58)
[2024-09-08] MEDS: ANCEF IV (18:00)
[2024-09-08 23:40] VITALS: BP 114/85
[2024-09-09] MEDS: ANCEF IV (00:14)
[2024-09-09] MEDS: TYLENOL 650 MG PO ×2 (03:48→09:51)
--- NOTE | 2024-09-09 06:37 | PTCARENOTE ---
Pt aaox3 able to make his needs known.Pt non-complaint with nursing care,refusing medications,S4nlreq, refusing dressing change,angry & irritated when trying to provide care or trying to explain need of IV antibiotics.Call perez in reach.Plan of care
continued.Pt on bed alarm for safety.
[2024-09-09 07:04] VITALS: BP 121/49
--- NOTE | 2024-09-09 09:27 | CM ---
Addendum entered by Amy Singletary 09/09/24 13:53:
Spoke with Kathryn re [place] legal services. Per Kathryn patient has been in contact with [employer] [place] multiple times.
Addendum entered by Amy Singletary 09/09/24 13:20:
Copy of eviction noticed, emailed to CM. Copy presented to patient.
Patient unable to read since he has no glasses with him and CM offered to read to patient.
Patient agreeable to CM reading document to him. Copy placed n RED folder in patients room.
Addendum entered by Amy Singletary 09/09/24 12:10:
CM contacted Kathryn Webster p#[phone] [facility] [place], from patients room so they could speak.
Kathryn reviewed patient pending eviction and stated to patient he has received multiple certified and [employer] notices re eviction, Patient stated if he knew, he would have hired an sports attorney. Kathryn also reviewed the condition of his apartment stating
there was feces, multiple liqueur bottles and unkempt. Patient stated it may have been untidy but that is only due to him not being able to get round on his scooter due to battery problems or wiring problems. Patient denied drinking too much alcohol
and said he does consume, but not enough to get drunk because he does not like the feeling. Kathryn also informed patient his car would be towed due to flat tires for some time. Patient stated he did not know tires were flat and they just need to be
inflated. Kathryn offered assistance with transitional housing and patient adamantly refused saying he would only go to his current home address. Patient stating he wants his own sports attorney to fight this in court. Patient again said he was never told
any of this and Kathryn offered to send information to the patient.
CM spoke with Kathryn after leaving the room, per Kathryn when her CM from [place] went to patients home to she needed to wear a protective suit due to conditions. Multiple liqueur bottles, not clean, feces around the apartment. Multiple complaints from
other tenants. Kathryn confirmed eviction process has been ongoing. Information to be emailed to department for patient.
Addendum entered by Amy Singletary 09/09/24 10:55:
CM contacted Antonio from patients room, Antonio explained to patient she has been working with him prior to admission, he had no recollection. Antonio explained that patient cannot go back into his apartment at this time, he is locked out, cannot
return there and went over why he cannot return. Antonio explained Kathryn from [place] will be assisting him for a rehab facility.
Immediately following phone call patient upset and frustrated stating I came here by ambulance i can go back by ambulance. CM, explained that he cannot ambulate and his scooter is not working he cannot get around at this time and requires therapy.
CM also reinforced that he is not able to return to his apartment. Patient again does not understand why he cannot return. Case manger explained that he will not be able to get in, patient stated he has money and will get a medical doctor nuclear medicine. CM said lets see
if Kathryn can assist and explained again that Kathryn was with the [facility] and was trying to assist him with rehab and residency.
Addendum entered by Amy Singletary 09/09/24 09:58:
Patient phone number in room [phone], patient aware Antonio felix be calling (he does not remember Suzhao)
Patient seems very irritated by CM speaking with him and wants to go back to his home. Patient requesting and toothpick and angry that we do not have toothpicks here.
Await TC from Antonio.
Original Note:
TC to [place] p# [phone] to see if she spoke with patient about his eviction and housing.
Per Antonio, she was unable to contact patient, no one answered phone.
CM will verify patient phone number and ask him to please answer when call comes in, he should know Antonio since she has been working with him for the past year.
[2024-09-09] MEDS: ANCEF 10 IV ×2 (09:47→17:00)
[2024-09-09] MEDS: HYDROPHOR 1 APPLIC TOPICAL (09:47)
--- NOTE | 2024-09-09 10:20 | W.PN.HOSP.TC ---
Today's Communication/Plan
-
Disposition issue
Assessment / Plan
Assessment / Plan
NAD
Scleral Anicteric
MMM
No JVD
CTABL
RRR, S1/S2
Obese, soft, NT, ND, BS+
Warm, Dry, bilateral lower extremities wrapped in Luis Armando bandage and compression stocking
AAOx3
Calm
Right shoulder xr
1. No radiographic evidence for acute fracture or dislocation.
2. 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
3. Full-thickness tear of the right rotator cuff with mild superior subluxation of the right humeral head.
4. 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

1. Left leg cellulitis
-Continue Ancef, transition to Keflex on discharge or complete full 10-day course of antibiotic
-Superficial skin abrasion continue wound care
-Bilateral lower extremity lymphedema outpatient lymphedema clinic follow-up
-DVT study negative
-Elevate leg in bed
2. Right full-thickness rotator cuff tear
-Outpatient orthopedic follow-up
3. Inadequate housing condition
-Electric scooter which is not able to be charged? traffic incident management manager asked to look into it
-House was in disarray according to EMS
-Case management working with APS for his specific county
4. HLD
-Previous home med list showing patient was on Crestor, not currently taking it
5. BPH
-Previous med list showing finasteride, not on it
6. Presumed essential hypertension
-Not taking recorded Toprol-XL from previous visits. Blood pressure controlled at this point monitor
DVT prophylaxis -Lovenox
Full code
Unable to discharge home as he is currently being evicted. Case management working on disposition
Anticipated Discharge: Within 24 hours
Subjective/Interval History
-
Date of Service: September 09, 2024
Seen and examined. No new complaints. No acute overnight events.
Updated by care management that he is currently being evicted from his apartment. I discussed this with him. He started becoming agitated as he states why I been nothing but great at this apartment building. Please 21 he may being affected. This
does not make any sense. All I want to do is go back to my apartment.
Objective Data
-
Vital Signs:
Vital Signs
Temp Pulse Resp BP Pulse Ox
98.5 F 60 20 121/49 99
09/09/24 07:04 09/09/24 07:04 09/09/24 07:04 09/09/24 07:04 09/09/24 07:04
I&O
09/08/24 09/09/24 09/10/24
06:59 06:59 06:59
Intake Total 920 / 920 1340 / 1340
Output Total 980 / 980 750 / 750
Balance -60 / -60 590 / 590
[2024-09-09 15:31] VITALS: BP 148/61
--- NOTE | 2024-09-09 16:28 | PTCARENOTE ---
Pt AAO x3, very argumentive; refused to participate in care at times, needs frequent re-statement of plan of care/DC plans. Pt BURNS PAIUTE. Pt very angry re: DC ;stated 'No one told me I can't go home'; pt insistent he is going home to his previous
apartment. MEEKS; OOB to chair/BSC with assist x2/walker, pt needs much encouragement to participate in OOB activity/positioning. VSS. On room air- pulse ox 98%, no SOB noted. Abd large, soft, onur regular diet well. Voids in uri al; spills
urinal/incont at times. Resting in bed at present. Will continue to monitor.
[2024-09-09] MEDS: LOVENOX SC (17:00)
[2024-09-09 23:17] VITALS: BP 143/60
[2024-09-10] MEDS: ANCEF 10 IV ×3 (00:35→17:11)
[2024-09-10 07:55] VITALS: BP 140/58
[2024-09-10] MEDS: HYDROPHOR 1 APPLIC TOPICAL (10:06)
--- NOTE | 2024-09-10 13:28 | W.PN.HOSP.TC ---
Today's Communication/Plan
-
Assessment / Plan
Assessment / Plan
NAD
Scleral Anicteric
MMM
No JVD
CTABL
RRR, S1/S2
Obese, soft, NT, ND, BS+
Warm, Dry, bilateral lower extremities wrapped in Luis Armando bandage and compression stocking
AAOx3
Calm
Right shoulder xr
1. No radiographic evidence for acute fracture or dislocation.
2. 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
3. Full-thickness tear of the right rotator cuff with mild superior subluxation of the right humeral head.
4. 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

1. Left leg cellulitis
-Continue Ancef, transition to Keflex on discharge or complete full 10-day course of antibiotic
-Superficial skin abrasion continue wound care
-Bilateral lower extremity lymphedema outpatient lymphedema clinic follow-up
-DVT study negative
-Elevate leg in bed
2. Right full-thickness rotator cuff tear
-Outpatient orthopedic follow-up
3. Inadequate housing condition
-Electric scooter which is not able to be charged? it application development manager asked to look into it
-House was in disarray according to EMS
-Case management working with APS for his specific county
4. HLD
-Previous home med list showing patient was on Crestor, not currently taking it
5. BPH
-Previous med list showing finasteride, not on it
6. Presumed essential hypertension
-Not taking recorded Toprol-XL from previous visits. Blood pressure controlled at this point monitor
DVT prophylaxis -Lovenox
Full code
Unable to discharge home as he is currently being evicted. Case management working on disposition
Anticipated Discharge: > 48 hours
Subjective/Interval History
-
Date of Service: September 10, 2024
Seen and examined. Became argumentative when I informed him that he was being infected. He was okay to be evicted I would need to be taken to court to be infected and that has not happened yet. Therefore I do have a place to live. Informed him
that in the red flow O2 that is sitting on his dinner tray table there is a letter in there that has been brought in by case management saying that he has being infected.
Objective Data
-
Vital Signs:
Vital Signs
Temp Pulse Resp BP Pulse Ox
98.3 F 63 18 140/58 99
09/10/24 07:55 09/10/24 07:55 09/10/24 07:55 09/10/24 07:55 09/10/24 10:05
I&O
09/09/24 09/10/24 09/11/24
06:59 06:59 06:59
Intake Total 1340 / 1340 1440 / 1440
Output Total 750 / 750 1300 / 1300
Balance 590 / 590 140 / 140
[2024-09-10 15:20] VITALS: BP 136/71
[2024-09-10] MEDS: LOVENOX SC (17:12)
[2024-09-10 22:56] VITALS: BP 138/55
[2024-09-11] MEDS: ANCEF 10 IV ×3 (00:56→17:15)
[2024-09-11 07:20] VITALS: BP 109/56
[2024-09-11] MEDS: HYDROPHOR 1 APPLIC TOPICAL (08:32)
--- NOTE | 2024-09-11 10:02 | W.PN.HOSP.TC ---
Today's Communication/Plan
-
iv antibiotics for rle cellulitis with transition to keflex 500mg qid (full 10day course of atb)once CM/SW has disposition
-unable to dc as he is activelly being evicted from his current dwelling
-pscyh evaled he has capacity
Assessment / Plan
Assessment / Plan
NAD
Scleral Anicteric
MMM
No JVD
CTABL
RRR, S1/S2
Obese, soft, NT, ND, BS+
Warm, Dry, bilateral lower extremities wrapped in Luis Armando bandage and compression stocking
AAOx3
Calm
Right shoulder xr
1. No radiographic evidence for acute fracture or dislocation.
2. 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
3. Full-thickness tear of the right rotator cuff with mild superior subluxation of the right humeral head.
4. 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

1. Left leg cellulitis
-Continue Ancef, transition to Keflex on discharge or complete full 10-day course(8/10days) of antibiotic on dc
-Superficial skin abrasion continue wound care
-Bilateral lower extremity lymphedema outpatient lymphedema clinic follow-up
-DVT study negative
-Elevate leg in bed
2. Right full-thickness rotator cuff tear
-Outpatient orthopedic follow-up
3. Inadequate housing condition
-Electric scooter which is not able to be charged? commissary manager asked to look into it
-House was in disarray according to EMS
-Case management working with APS for his specific county
4. HLD
-Previous home med list showing patient was on Crestor, not currently taking it
5. BPH
-Previous med list showing finasteride, not on it
6. Presumed essential hypertension
-Not taking recorded Toprol-XL from previous visits. Blood pressure controlled at this point monitor
DVT prophylaxis -Lovenox
Full code
Unable to discharge home as he is currently being evicted. Case management working on disposition
Anticipated Discharge: 24 - 48 hours
Subjective/Interval History
-
Date of Service: September 11, 2024
seen and examined
no new complaints
no acute overnight events
wants to go home
Objective Data
-
Vital Signs:
Vital Signs
Temp Pulse Resp BP Pulse Ox
98.1 F 69 20 109/56 99
09/11/24 07:20 09/11/24 07:20 09/11/24 07:20 09/11/24 07:20 09/11/24 07:20
I&O
09/10/24 09/11/24 09/12/24
06:59 06:59 06:59
Intake Total 1440 / 1440 1200 / 1200
Output Total 1300 / 1300 1150 / 1150
Balance 140 / 140 50 / 50
[2024-09-11 15:15] VITALS: BP 116/55
[2024-09-11] MEDS: LOVENOX 40 MG SC (17:15)
[2024-09-11] MEDS: TYLENOL 650 MG PO (21:23)
[2024-09-11 23:53] VITALS: BP 147/66
[2024-09-12] MEDS: ANCEF 10 IV (01:31)
[2024-09-12 07:25] VITALS: BP 133/55
[2024-09-12] MEDS: ANCEF IV ×2 (09:19→09:30)
[2024-09-12] MEDS: HYDROPHOR 1 APPLIC TOPICAL (09:19)
--- NOTE | 2024-09-12 13:22 | W.PN.HOSP.TC ---
Today's Communication/Plan
-
Continue antibiotic
Placement
Assessment / Plan
Assessment / Plan
#Left leg cellulitis
-Continue Ancef, transition to Keflex on discharge or complete full 10-day course(9/10days) of antibiotic
-Superficial skin abrasion continue wound care
-Bilateral lower extremity lymphedema outpatient lymphedema clinic follow-up
-DVT study negative
-Elevate leg in bed
#Right full-thickness rotator cuff tear
-Outpatient orthopedic follow-up
#Inadequate housing condition
-Electric scooter which is not able to be charged? health practice manager asked to look into it
-House was in disarray according to EMS
-Case management working with APS for his specific county
#HLD
-Previous home med list showing patient was on Crestor, not currently taking it
#BPH
-Previous med list showing finasteride, not on it
#Presumed essential hypertension
-Not taking recorded Toprol-XL from previous visits. Blood pressure controlled at this point monitor
DVT prophylaxis -Lovenox
Full code
Unable to discharge home as he is currently being evicted. Case management working on disposition
Anticipated Discharge: > 48 hours
Subjective/Interval History
-
Date of Service: September 12, 2024
Seen and examined at the bedside. No acute events reported overnight. AFVSS this morning
Day 9/10 of antibiotics. Case management still searching for placement
He denies any new complaints and states he feels well
Objective Data
-
Vital Signs:
Vital Signs
Temp Pulse Resp BP Pulse Ox
97.8 F 64 18 133/55 99
09/12/24 07:25 09/12/24 07:25 09/12/24 07:25 09/12/24 07:25 09/12/24 07:25
I&O
09/11/24 09/12/24 09/13/24
06:59 06:59 06:59
Intake Total 1200 / 1200 1440 / 1440
Output Total 1150 / 1150 825 / 825
Balance 50 / 50 615 / 615
Review of Systems
-
History Source: Patient
All other systems: Reviewed and negative
Physical Exam
-
General: Well Developed, No Apparent Distress and Comfortable
HEENT: Normocephalic, Atraumatic and Moist Mucous Membranes
Respiratory: Clear to Auscultation and Non Labored Respirations
Cardiac: Regular Rhythm and S1/S2; Negative Murmur, Rub or Gallop
GI: Soft, Nontender, Nondistended and Normal Bowel Sounds
Musculoskeletal: No Clubbing, No Cyanosis and No Edema
Skin: Warm, Dry and Normal Turgor; Negative Rash
Neuro: AO x 3 and Nonfocal/Grossly Intact
Psych: Calm
--- NOTE | 2024-09-12 14:13 | CM ---
Addendum entered by Amy Singletary 09/12/24 14:56:
Went back to see patient to see if he is agreeable to skilled rehab. patient with no recollection of prior conversation.
Again stated he wanted to go to his home and stated address.
CM explained that he is unable to return there and has received the eviction notice to which he replied ' I have not. I didn't do anything. They cannot evict me without going to court. '
CM showed patient eviction notice and he did not recall it being given to him and me reading it to him on Thursday and wanted me to go over it again. As CM started to read it he spoke back saying its not true and then started to use urinal, and CM
left room.
will continue d/c efforts, patient stating [facility] is to far from where he lives.
Application for VA received.
Original Note:
Spoke with Nilam from [facility] in [facility] [phone] ext [phone] re STR
she will fax an application to to be filled out.
CM will continue to work with patient to see if he will agree to STR.
[2024-09-12 15:20] VITALS: BP 130/55
[2024-09-12] MEDS: LOVENOX SC ×2 (17:22→17:47)
[2024-09-12] MEDS: KEFLEX 500 MG PO ×2 (17:22→21:15)
[2024-09-12 23:58] VITALS: BP 147/81
[2024-09-13] MEDS: TYLENOL 650 MG PO (05:55)
[2024-09-13] MEDS: KEFLEX 500 MG PO ×4 (08:59→21:10)
--- NOTE | 2024-09-13 11:12 | W.PN.HOSP.TC ---
Today's Communication/Plan
-
Last day of Keflex 09/14/2024
Elevate leg
Case management for placement
Assessment / Plan
Assessment / Plan
#Left leg cellulitis
-Continue Ancef, transition to Keflex on discharge or complete full 10-day course (9/10days) of antibiotic
-Superficial skin abrasion continue wound care
-Bilateral lower extremity lymphedema outpatient lymphedema clinic follow-up
-DVT study negative
-Elevate leg in bed
#Right full-thickness rotator cuff tear
-Outpatient orthopedic follow-up
#Inadequate housing condition
-Electric scooter which is not able to be charged? natural resource manager asked to look into it
-House was in disarray according to EMS
-Case management working with APS for his specific county
#HLD
-Previous home med list showing patient was on Crestor, not currently taking it
#BPH
-Previous med list showing finasteride, not on it
#Presumed essential hypertension
-Not taking recorded Toprol-XL from previous visits. Blood pressure controlled at this point monitor
DVT prophylaxis -Lovenox
Full code
Unable to discharge home as he is currently being evicted. Case management working on disposition. Otherwise medically stable for discharge from hospital
Anticipated Discharge: 24 - 48 hours
Subjective/Interval History
-
Date of Service: September 13, 2024
Seen and examined at the bedside. No acute events reported overnight. AFVSS this morning
Pending placement due to recent eviction and homeless status
He denies any new complaints, states he feels generally fine
Objective Data
-
Vital Signs:
Vital Signs
Temp Pulse Resp BP Pulse Ox
98 F 73 20 147/81 97
09/12/24 23:58 09/12/24 23:58 09/12/24 23:58 09/12/24 23:58 09/12/24 23:58
I&O
09/12/24 09/13/24 09/14/24
06:59 06:59 06:59
Intake Total 1440 / 1440 960 / 960
Output Total 825 / 825 700 / 700
Balance 615 / 615 260 / 260
Review of Systems
-
History Source: Patient
All other systems: Reviewed and negative
Physical Exam
-
General: Well Developed, No Apparent Distress and Comfortable
HEENT: Normocephalic, Atraumatic and Moist Mucous Membranes
Respiratory: Clear to Auscultation and Non Labored Respirations
Cardiac: Regular Rhythm and S1/S2; Negative Murmur, Rub or Gallop
GI: Soft, Nontender, Nondistended and Normal Bowel Sounds
Musculoskeletal: No Clubbing, No Cyanosis and No Edema
Skin: Warm, Dry and Normal Turgor; Negative Rash
Neuro: AO x 3 and Nonfocal/Grossly Intact
Psych: Calm
[2024-09-13] MEDS: HYDROPHOR TOPICAL (11:20)
--- NOTE | 2024-09-13 14:43 | CM ---
CM in to speak with patient re d/c plan.
Asked patient where he thought he could go post d/c.
Patient insists he wants to go to his home/apartment.
CM again explained to patient that is not an option, that he has been evicted. Patient again asking why he was evicted and how come he was not told. CM asked patient if he has a mailbox and if he gets his mail, he stated it was too far for him to go
and may not have received his mail in some time. He wanted to know how they can do that without him being aware and that it needs to be done in court. I told him I was not sure, but I did have a letter from [facility] employment law attorney
office with the Notice to Quit. He asked what that was and CM again read the Notice to Quit to the patient. While reading he continued to deny the reasons listed. I let patient know I would assist him with finding a facility where he could get rehab
and work with the [facility] and possibly assist with finding an employment law attorney in [place] to assist him with his legal matters. CM asked patient if we could fill out forms for the [facility] in [facility] and patient adamantly refused stating it was too far from his home.
CM asked if we could possibly place some alternate referrals at long term facilities closer to his home and patient stated he was not going anywhere that low paid staff would be telling him what to do. He stated he wanted to live independently
in his apartment and do what he wants. Patient stated just send me home, CM explained again that I cannot send him home if he does not have access to his apartment and explained I did not want him to have to go to a skilled nursing, he stated he would not
go to a skilled nursing. CM asked patient if there were any fiends or family he could stay with, patient stated his sister lives in [place] and his lady friend (he could not recall her name) could not help. Per patient her son cleans his home 1x/week but
he can not help and patient has no phone numbers. (lost his phone). Patient stated he wanted this CM to get a [place] employment law attorney to come to the hospital to assist him, he could afford to pay $50. Patient again stated he is not going anywhere except to his
home.
Plan: to be determined, refusing skilled rehab, refusing placement and VA assistance.
[2024-09-13 15:00] VITALS: BP 140/64
[2024-09-13] MEDS: LOVENOX SC (17:31)
--- NOTE | 2024-09-13 19:29 | PTCARENOTE ---
Patient refused dressing change, heparin injection, and skin cream today.
[2024-09-13 23:35] VITALS: BP 130/50
[2024-09-14 07:17] VITALS: BP 134/63
[2024-09-14] MEDS: KEFLEX 500 MG PO ×4 (09:40→22:20)
[2024-09-14] MEDS: HYDROPHOR 1 APPLIC TOPICAL (09:41)
--- NOTE | 2024-09-14 10:18 | W.PN.HOSP.TC ---
Today's Communication/Plan
-
Last day of antibiotics
Placement
Assessment / Plan
Assessment / Plan
#Left leg cellulitis
-Transitioned to Keflex on discharge or complete full 10-day course (10/10 days)
-Superficial skin abrasion continue wound care
-Bilateral lower extremity lymphedema outpatient lymphedema clinic follow-up
-DVT study negative
-Elevate leg in bed
-Last day of Abx 09/14
#Right full-thickness rotator cuff tear
-Outpatient orthopedic follow-up
#Inadequate housing condition
-Electric scooter which is not able to be charged? clinical research manager asked to look into it
-House was in disarray according to EMS
-Case management working with APS for his specific county
#HLD
-Previous home med list showing patient was on Crestor, not currently taking it
#BPH
-Previous med list showing finasteride, not on it
#Presumed essential hypertension
-Not taking recorded Toprol-XL from previous visits. Blood pressure controlled at this point monitor
DVT prophylaxis -Lovenox
Full code
Unable to discharge home as he is currently being evicted. Case management working on disposition. Otherwise medically stable for discharge from hospital
Anticipated Discharge: 24 - 48 hours
Subjective/Interval History
-
Date of Service: September 14, 2024
Seen and examined at the bedside. No acute events reported overnight. AFVSS this morning
He states he feels well and denies any new complaints
He is unsure about his possible infection, states he feels that he would know if he was being evicted. Will have case management talk with further
Objective Data
-
Vital Signs:
Vital Signs
Temp Pulse Resp BP Pulse Ox
98.2 F 74 20 134/63 98
09/14/24 07:17 09/14/24 07:17 09/14/24 07:17 09/14/24 07:17 09/14/24 07:17
I&O
09/13/24 09/14/24 09/15/24
06:59 06:59 06:59
Intake Total 960 / 960 240 / 240
Output Total 700 / 700 1250 / 1250
Balance 260 / 260 -1010 / -1010
Review of Systems
-
History Source: Patient
All other systems: Reviewed and negative
Physical Exam
-
General: Well Developed, No Apparent Distress and Comfortable
HEENT: Normocephalic, Atraumatic and Moist Mucous Membranes
Respiratory: Clear to Auscultation and Non Labored Respirations
Cardiac: Regular Rhythm and S1/S2; Negative Murmur, Rub or Gallop
GI: Soft, Nontender, Nondistended and Normal Bowel Sounds
Musculoskeletal: No Clubbing, No Cyanosis and No Edema
Skin: Warm and Normal Turgor; Negative Rash
Neuro: AO x 3 and Nonfocal/Grossly Intact
Psych: Calm
[2024-09-14 16:19] VITALS: BP 116/55
--- NOTE | 2024-09-14 16:32 | CM ---
Spoke with patient bedside.
Attempted to discuss discharge plan again.
Patient needed to be reminded about eviction.
Patient admits home may have been untidy.
Stated he has heard nothing of this before and no one talked to him about it so he could answer.
Patient adamantly refused that he could be evicted and wants to speak with the landlord and an civil litigation attorney.
Discussed alternate living options with patient and he refused.
Patient stated he is able to care for himself, has a scooter that has been broken for he is not sure how long.
He need someone to fix his scooter.
Patient stated a gentleman named Jose Rafael Roberts cleans his house 1x per week and his mother was a friend of his. He has no phone number for this gentleman.
Patient has meals on weals and stated that is plenty for him to eat.
Patient stated he is on SSD but might be able to pull together $100 for an civil litigation attorney.
Plan: CM will continue to work on a discharge plan.
[2024-09-14] MEDS: LOVENOX SC (16:59)
--- NOTE | 2024-09-14 22:45 | PTCARENOTE ---
Pt transferred into room 423-01 from . Pt AAOx3, VSS. Bed alarm placed. Pt oriented to room, call perez placed within reach.
[2024-09-14 23:05] VITALS: BP 141/61
[2024-09-15] MEDS: TYLENOL 650 MG PO (01:09)
--- NOTE | 2024-09-15 02:07 | PTCARENOTE ---
Pt verbally abusive to staff. Pt will scream at staff for things such as fluffing a pillow stating, 'you better do it right now' or 'that isn't good enough, do better.' Pt educated on importance of a therapeutic relationship on both ends of care
spectrum. Needs met currently.
[2024-09-15 07:00] VITALS: BP 122/64
[2024-09-15 07:54] LABS: % Basophils 0.7 % (0-2); % Immature Granulocytes 0.9 % (0-0.5); % Lymphocytes 18.4 % (20.5-51.1); % Monocytes 7.7 % (1.7-9.3); % Neutrophils 69.3 % (42.2-75.2); Absolute Eosinophils 0.2 10^3/uL (0-0.7); Absolute Immature Granulocytes 0.1 10^3/uL (0-0.05); Absolute Monocytes 0.4 10^3/uL (0.1-0.6); Absolute Neutrophils 3.9 10^3/uL (1.4-6.5); Hemoglobin 13.7 g/dL (13.0-18.0); Mean Corp Hgb Conc. 32.6 g/dL (33.0-37.0); Mean Corpuscular Hgb 30.5 pg (27.0-31.0); Mean Corpuscular Volume 93.5 fL (80.0-94.0); Mean Platelet Volume 9.9 fL (7.4-10.4); Nucleated Red Blood Cells % 0 % (-); Platelet Count 263 10^3/uL (130-400); Red Blood Cell Count 4.49 10^6/uL (4.70-6.10); Red Cell Dist. Width 12.7 % (11.5-14.5); White Blood Cell Count 5.6 10^3/uL (4.8-10.8)
[2024-09-15] MEDS: HYDROPHOR 1 APPLIC TOPICAL (08:19)
[2024-09-15 08:28] LABS: Blood Urea Nitrogen 20 mg/dl (9-20); Calcium 9.2 mg/dl (8.4-10.2); Carbon Dioxide 29 mmol/L (22-30); Chloride 105 mmol/L (98-107); Estimated Creatinine Clearance 54 ml/min; Glucose 93 mg/dl (70-99); Potassium 4.7 mmol/L (3.5-5.1); Sodium 139 mmol/L (135-145); eGFR > 60.00
--- NOTE | 2024-09-15 11:50 | CM ---
Patient seen bedside.
Patient did not recall this CM from yesterday, but agreeable to talk.
Patient remembered that he was told he about the eviction but denies that he could have been evicted without being there.
CM informed patient we are looking into that and trying to form the best d/c plan for him.
CM again discussed scooter and asked patient why he was unable to ambulate. He did not know the answer and stated it has been about 3 years, maybe due to old age. He is not sure how long his scooter has been broken, not sure if he owns or rents
scooter, and unsure how he obtained it. Patient also has WC but is unable to maneuver and that is why he has a scooter.
CM asked patient if it would be okay to ask PT/OT to come and evaluate him since he had been refusing. He said he would be agreeable.
Patient requested a commode for his room and nursing updated.
Plan> CM following for d/c plan.
--- NOTE | 2024-09-15 12:42 | W.PN.HOSP.TC ---
Today's Communication/Plan
-
Case management for disposition
Assessment / Plan
Assessment / Plan
#Left leg cellulitis
-Transitioned to Keflex on discharge or complete full 10-day course (10 days)
-Superficial skin abrasion continue wound care
-Bilateral lower extremity lymphedema outpatient lymphedema clinic follow-up
-DVT study negative
-Elevate leg in bed
-Last day of Abx 09/14
#Right full-thickness rotator cuff tear
-Outpatient orthopedic follow-up
#Inadequate housing condition
-Electric scooter which is not able to be charged? manager mechanical maintenance asked to look into it
-House was in disarray according to EMS
-Case management working with APS for his specific county
#HLD
-Previous home med list showing patient was on Crestor, not currently taking it
#BPH
-Previous med list showing finasteride, not on it
#Presumed essential hypertension
-Not taking recorded Toprol-XL from previous visits. Blood pressure controlled at this point monitor
DVT prophylaxis -Lovenox
Full code
Unable to discharge home as he is currently being evicted. Case management working on disposition. Otherwise medically stable for discharge from hospital
Anticipated Discharge: 24 - 48 hours
Subjective/Interval History
-
Date of Service: September 15, 2024
Seen and examined at the bedside. No acute events reported overnight. AFVSS this morning.
Patient still confused on the aspect of him being evicted from his apartment. Request to speak with case management and social work
Denies any new complaints medically
Objective Data
-
Labs:
Laboratory Results
09/15/24
07:04
WBC 5.6
Hgb 13.7
Hct 42.0
Plt Count 263
Sodium 139
Potassium 4.7
Chloride 105
Carbon Dioxide 29
BUN 20
Creatinine 1.0
Glucose 93
Calcium 9.2
Vital Signs:
Vital Signs
Temp Pulse Resp BP Pulse Ox
98 F 60 20 122/64 97
09/15/24 07:00 09/15/24 07:00 09/15/24 07:00 09/15/24 07:00 09/15/24 07:00
I&O
09/14/24 09/15/24 09/16/24
06:59 06:59 06:59
Intake Total 240 / 240 1400 / 1400 960 / 960
Output Total 1250 / 1250 1250 / 1250 100 / 100
Balance -1010 / -1010 150 / 150 860 / 860
Review of Systems
-
History Source: Patient
All other systems: Reviewed and negative
Physical Exam
-
General: Well Developed, No Apparent Distress and Comfortable
HEENT: Normocephalic, Atraumatic and Moist Mucous Membranes
Respiratory: Clear to Auscultation and Non Labored Respirations
Cardiac: Regular Rhythm and S1/S2; Negative Murmur, Rub or Gallop
GI: Soft, Nontender, Nondistended and Normal Bowel Sounds
Musculoskeletal: No Clubbing, No Cyanosis and No Edema
Skin: Warm, Dry and Normal Turgor; Negative Rash
Neuro: AO x 3 and Nonfocal/Grossly Intact
Psych: Calm
--- NOTE | 2024-09-15 14:05 | W.PN.UPDATE ---
Update Note
Progress Note Update
patients seen chart reviewed. this patient is known to me. i had seen him on 09/07 re the question of capacity to make medical and other decisions. at that time i felt he did have capacity for decision making as he was agreeing to what seemed to be
necessary ie in home physical therapy, possible visiting nurses etc. he did require some assistance with miscellaneous necessities including repair of his scooter which he used to get around the home. he was not a great historian but it did seem as
though he was motivated to cooperate with what needed to be done. since that time several new issues have come to light. he has been evicted from his home. i read an eviction notice that contained several pages of concerns that prohibited
continuing his lease. apparently notices had been served several times since spring and the eviction was finalized for 09.09.2024. the patient said he had not received these notices. he does not regularly collect his mail and it is noted in
the eviction notice that there were papers all about so perhaps it was among them. the patient has been told repeatedly about the eviction by our staff including cm yet he continues to profess not knowing about it and not being told about it even
though our staff have documented telling him. when he is told he rails about the injustice of it and demands a towboat pilot not understanding that we cannot simply get a towboat pilot on an emergency basis to allow him back into his home. when he is approached
again the same scenario ensues. while mr ly is oriented as to person place and time and can make demands in the moment eg to go 'home', to get a 'distribution accounting clerk' and take it to 'the towboat pilot' he has no capacity to cooperate with making logical sensible
coherent plans for himself. at this point his lack of understanding concerning his health and life issues are inhibiting our staff from making any headway in helping him to formalize a plan. for this reason, i will now opine that he does NOT have
capacity for medical and other decision making to ensure that he has a safe place to return to that will attend to his medical and social issues.
[2024-09-15 15:13] VITALS: BP 132/64
[2024-09-15] MEDS: LOVENOX SC (18:11)
[2024-09-15 23:00] VITALS: BP 101/35
[2024-09-16] MEDS: TYLENOL 650 MG PO (04:19)
[2024-09-16] MEDS: HYDROPHOR 1 APPLIC TOPICAL (08:01)
[2024-09-16 08:25] VITALS: BP 149/69
--- NOTE | 2024-09-16 11:37 | W.PN.HOSP.TC ---
Today's Communication/Plan
-
Does not have capacity to make own decisions
Disposition planning with CM and social work
Assessment / Plan
Assessment / Plan
#Left leg cellulitis
#BLLE lymphedema
-Status post course of antibiotics for 10 days included cefazolin and Keflex (last day 09/14/2024)
-Continue compression stockings for lymphedema, follow-up with lymphedema clinic OP
-Superficial skin abrasion continue wound care
-Elevate leg in bed
#Medical decision making capacity
-Reevaluated by psych on 09/16/2024 who determined that he does not have capacity for decision-making
-Case management continuing to assist with disposition
#Right full-thickness rotator cuff tear
-Outpatient orthopedic follow-up
#Inadequate housing condition
-Electric scooter which is not able to be charged? process development manager asked to look into it
-House was in disarray according to EMS
-Case management working with APS for his specific county
#HLD
-Previous home med list showing patient was on Crestor, not currently taking it
#BPH
-Previous med list showing finasteride, not on it
#Presumed essential hypertension
-Not taking recorded Toprol-XL from previous visits.
-Blood pressure controlled at this point monitor off meds
DVT prophylaxis -Lovenox
Full code
Unable to discharge home as he is currently being evicted. Case management working on disposition. Otherwise medically stable for discharge from hospital
Anticipated Discharge: > 48 hours
Subjective/Interval History
-
Date of Service: September 16, 2024
Seen and examined at the bedside. No acute events overnight. AFVSS this morning
Reevaluated by psychiatry, determined to not have capacity for decision-making
He denies any new complaints other than disposition concerns
Objective Data
-
Vital Signs:
Vital Signs
Temp Pulse Resp BP Pulse Ox
97.9 F 60 18 149/69 98
09/16/24 08:25 09/16/24 08:25 09/16/24 08:25 09/16/24 08:25 09/16/24 08:25
I&O
09/15/24 09/16/24 09/17/24
06:59 06:59 06:59
Intake Total 1400 / 1400 1185 / 1185
Output Total 1250 / 1250 1100 / 1100 250 / 250
Balance 150 / 150 85 / 85 -250 / -250
Review of Systems
-
History Source: Patient
All other systems: Reviewed and negative
Physical Exam
-
General: Well Developed, Well Nourished, No Apparent Distress and Comfortable
HEENT: Normocephalic, Atraumatic and Moist Mucous Membranes
Respiratory: Clear to Auscultation and Non Labored Respirations
Cardiac: Regular Rhythm and S1/S2; Negative Murmur, Rub or Gallop
GI: Soft, Nontender, Nondistended and Normal Bowel Sounds
Musculoskeletal: No Clubbing, No Cyanosis and No Edema
Skin: Warm, Dry and Normal Turgor; Negative Rash
Neuro: AO x 3 and Nonfocal/Grossly Intact
Psych: Calm
--- NOTE | 2024-09-16 11:44 | CM ---
Patient seen bedside, did not remember this cyanide case hardener from day prior.
Patient refused physical therapy this morning.
CM working with legal for guardianship.
Plan: skilled rehab once guardianship obtained.
[2024-09-16 16:12] VITALS: BP 152/77
[2024-09-16] MEDS: LOVENOX SC (17:10)
[2024-09-16 23:00] VITALS: BP 155/73
[2024-09-17 07:00] VITALS: BP 124/63
[2024-09-17 07:13] VITALS: BMI 27.3
[2024-09-17] MEDS: HYDROPHOR 1 APPLIC TOPICAL (08:01)
--- NOTE | 2024-09-17 12:41 | W.PN.HOSP.TC ---
Today's Communication/Plan
-
Downgrade
Case management for placement
Assessment / Plan
Assessment / Plan
#Left leg cellulitis
#BLLE lymphedema
-Status post course of antibiotics for 10 days included cefazolin and Keflex (last day 09/14/2024)
-Continue compression stockings for lymphedema, follow-up with lymphedema clinic OP
-Superficial skin abrasion continue wound care
-Elevate leg in bed
#Medical decision making capacity
-Reevaluated by psych on 09/16/2024 who determined that he does not have capacity for decision-making
-Case management continuing to assist with disposition
#Right full-thickness rotator cuff tear
-Outpatient orthopedic follow-up
#Inadequate housing condition
-Electric scooter which is not able to be charged? wastewater project manager asked to look into it
-House was in disarray according to EMS
-Case management working with APS for his specific county
#HLD
-Previous home med list showing patient was on Crestor, not currently taking it
#BPH
-Previous med list showing finasteride, states he is not on it anymore
#Presumed essential hypertension
-Not taking recorded Toprol-XL from previous visits.
-Blood pressure controlled at this point monitor off meds
DVT prophylaxis: Lovenox
CODE STATUS: Full code
Diet: Regular
Disposition: Downgrade to MedSurg
Unable to discharge home as he is currently being evicted. Case management working on disposition. Otherwise medically stable for discharge from hospital
Anticipated Discharge: > 48 hours
Subjective/Interval History
-
Date of Service: September 17, 2024
Seen and examined at the bedside. No acute events reported overnight. AFVSS this more
Pending legal guardianship and placement. Expected timeframe is very long
No acute complaints. Will downgrade to MedSurg
Objective Data
-
Vital Signs:
Vital Signs
Temp Pulse Resp BP Pulse Ox
98.4 F 66 15 124/63 98
09/17/24 07:00 09/17/24 07:00 09/17/24 07:00 09/17/24 07:00 09/17/24 07:00
I&O
09/16/24 09/17/24 09/18/24
06:59 06:59 07:59
Intake Total 1185 / 1185 1440 / 1440
Output Total 1100 / 1100 1750 / 1750
Balance 85 / 85 -310 / -310
Review of Systems
-
History Source: Patient
All other systems: Reviewed and negative
Physical Exam
-
General: Well Developed, Well Nourished and No Apparent Distress
HEENT: Normocephalic, Atraumatic and Moist Mucous Membranes
Respiratory: Clear to Auscultation and Non Labored Respirations
Cardiac: Regular Rhythm and S1/S2; Negative Murmur, Rub or Gallop
GI: Soft, Nontender, Nondistended and Normal Bowel Sounds
Musculoskeletal: No Clubbing, No Cyanosis and No Edema
Skin: Warm, Dry and Normal Turgor; Negative Rash
Neuro: AO x 3 and Nonfocal/Grossly Intact
Psych: Calm
[2024-09-17 16:16] VITALS: BP 129/60
[2024-09-17] MEDS: LOVENOX SC (17:19)
[2024-09-17 23:00] VITALS: BP 155/70
[2024-09-18 06:00] VITALS: BMI 27.7
[2024-09-18 07:46] VITALS: BP 133/65
[2024-09-18] MEDS: HYDROPHOR 1 APPLIC TOPICAL (08:10)
[2024-09-18 10:25] VITALS: BP 127/54; PULSE 75
--- NOTE | 2024-09-18 11:22 | W.PN.HOSP.TC ---
Today's Communication/Plan
-
PT/OT
Pursuing legal guardianship
Pending placement
Assessment / Plan
Assessment / Plan
#Left leg cellulitis
#BLLE lymphedema
-Status post course of antibiotics for 10 days included cefazolin and Keflex (last day 09/14/2024)
-Continue compression stockings for lymphedema, follow-up with lymphedema clinic OP
-Superficial skin abrasion continue wound care
-Elevate leg in bed
#Medical decision making capacity
-Reevaluated by psych on 09/16/2024 who determined that he does not have capacity for decision-making
-Case management continuing to assist with disposition
#Right full-thickness rotator cuff tear
-Outpatient orthopedic follow-up
#Inadequate housing condition
-Electric scooter which is not able to be charged? information systems manager asked to look into it
-House was in disarray according to EMS
-Case management working with APS for his specific county
#Chronic ambulatory dysfunction
-Patient used scooter for assistance prior to hospitalization
-Unclear nature for his weakness, suspect deconditioning and stasis
-Working with physical therapy, as of 09/18 seems amenable
#HLD
-Previous home med list showing patient was on Crestor, not currently taking it
#BPH
-Previous med list showing finasteride, states he is not on it anymore
#Presumed essential hypertension
-Not taking recorded Toprol-XL from previous visits.
-Blood pressure controlled at this point monitor off meds
DVT prophylaxis: Lovenox
CODE STATUS: Full code
Diet: Regular
Disposition: Downgrade to MedSurg
Unable to discharge home as he is currently being evicted. Case management working on disposition. Otherwise medically stable for discharge from hospital
Anticipated Discharge: > 48 hours
Subjective/Interval History
-
Date of Service: September 18, 2024
Seen and examined while being transferred to the chair by PT. No acute events overnight. AFVSS this morning
Patient is very weak and requires 1-2 person assist for transfer to chair.
He continues to deny any acute medical complaints
Objective Data
-
Vital Signs:
Vital Signs
Temp Pulse Resp BP Pulse Ox
98.1 F 64 15 133/65 98
09/18/24 07:46 09/18/24 07:46 09/18/24 07:46 09/18/24 07:46 09/18/24 07:46
I&O
09/17/24 09/18/24 09/19/24
05:59 06:59 06:59
Intake Total
Output Total
Balance
Review of Systems
-
History Source: Patient
All other systems: Reviewed and negative
Physical Exam
-
General: Well Developed, Well Nourished and No Apparent Distress
HEENT: Normocephalic, Atraumatic and Moist Mucous Membranes
Respiratory: Clear to Auscultation and Non Labored Respirations
Cardiac: Regular Rhythm and S1/S2; Negative Murmur, Rub or Gallop
GI: Soft, Nontender, Nondistended and Normal Bowel Sounds
Musculoskeletal: No Clubbing, No Cyanosis and No Edema
Skin: Warm, Dry and Normal Turgor; Negative Rash
Neuro: AO x 3 and Nonfocal/Grossly Intact
Psych: Calm
[2024-09-18 15:37] VITALS: BP 133/60
--- NOTE | 2024-09-18 16:46 | PTCARENOTE ---
pt refusing PRN constipation medication.
[2024-09-18] MEDS: LOVENOX SC (18:09)
[2024-09-18] MEDS: TYLENOL 650 MG PO (21:50)
[2024-09-18 23:05] VITALS: BP 129/56
[2024-09-19 05:02] VITALS: BMI 28.3
[2024-09-19 07:53] VITALS: BP 121/76
[2024-09-19] MEDS: HYDROPHOR 1 APPLIC TOPICAL (08:53)
--- NOTE | 2024-09-19 10:27 | PTCARENOTE ---
Patient received out of bed in chair this am, stated he 'got myself here' . Calling out to go back to bed stated he 'needs 2 strong men to lift him into bed'. Reminded him he got out of bed independently, he stated ' I can't anymore. ' Took 3
nurses to assist to stand and pivot back to bed, refused to bear weight. In bed at present call light in reach, bed alarm on .
--- NOTE | 2024-09-19 14:32 | CM ---
Patient seen bedside.
Sleeping.
TT to disability attorney re update with guardianship, await call back.
Plan: guardianship and placement.
[2024-09-19 15:08] VITALS: BP 125/48
--- NOTE | 2024-09-19 16:52 | W.PN.HOSP.TC ---
Today's Communication/Plan
-
Assessment / Plan
Assessment / Plan
NAD
Scleral Anicteric
MMM
No JVD
CTABL
RRR, S1/S2
Soft, NT, ND, BS+
Warm, Dry
AAO
Left leg cellulitis, nonpurulent, completed cefazolin/Keflex 10-day course
Bilateral lower extremity lymphedema continue compression stockings will need lymphedema follow-up on discharge
Right full-thickness rotator cuff tear outpatient orthopedic follow-up
Chronic ambulatory dysfunction continue PT OT
Hyperlipidemia not taking Crestor any further
BPH not taking finasteride any further hypertension not taking metoprolol any further
-Though blood pressure is controlled
Medical decision making capacity
-09/16/2024 determine that he does not have capacity for decision making by psychiatry
-Case management working on guardianship
Anticipated Discharge: > 48 hours
Subjective/Interval History
-
Date of Service: September 19, 2024
Seen and examined. Continues to to argue that he does not know that he is being affected how can you like me if I have not been from the automotive service assistant. I have been living at the place for 7 years and I have been nothing but a good resident.
Objective Data
-
Vital Signs:
Vital Signs
Temp Pulse Resp BP Pulse Ox
98.4 F 65 18 125/48 98
09/19/24 15:08 09/19/24 15:08 09/19/24 15:08 09/19/24 15:08 09/19/24 15:08
I&O
09/18/24 09/19/24 09/20/24
06:59 06:59 06:59
Intake Total 1160 / 1160
Output Total 1150 / 1150
Balance
[2024-09-19] MEDS: LOVENOX SC (17:08)
[2024-09-19 23:06] VITALS: BP 154/63
[2024-09-20 05:26] VITALS: BMI 28.1
[2024-09-20 07:32] VITALS: BP 139/59
[2024-09-20] MEDS: HYDROPHOR 1 APPLIC TOPICAL (09:00)
[2024-09-20 11:03] VITALS: BP 132/55; PULSE 79; O2SAT 98
--- NOTE | 2024-09-20 12:32 | W.PN.HOSP.TC ---
Today's Communication/Plan
-
For guardianship
Assessment / Plan
Assessment / Plan
NAD
Scleral Anicteric
MMM
No JVD
CTABL
RRR, S1/S2
Soft, NT, ND, BS+
Warm, Dry
AAO
Irrational thought process, lacks insight
Left leg cellulitis, nonpurulent, completed cefazolin/Keflex 10-day course
Bilateral lower extremity lymphedema continue compression stockings will need lymphedema follow-up on discharge
Right full-thickness rotator cuff tear outpatient orthopedic follow-up
Chronic ambulatory dysfunction continue PT OT
Hyperlipidemia not taking Crestor any further
BPH not taking finasteride any further hypertension not taking metoprolol any further
-Though blood pressure is controlled
Medical decision making capacity
-09/16/2024 determine that he does not have capacity for decision making by psychiatry
-Case management working on guardianship
Anticipated Discharge: > 48 hours
Subjective/Interval History
-
Date of Service: September 20, 2024
Seen and examined. No new complaints. No acute overnight events. Continues to argue about being affected asking when he is being discharged to his apartment
Objective Data
-
Vital Signs:
Vital Signs
Temp Pulse Resp BP Pulse Ox
98.7 F 55 18 139/59 99
09/20/24 07:32 09/20/24 07:32 09/20/24 07:32 09/20/24 07:32 09/20/24 07:32
I&O
09/19/24 09/20/24 09/21/24
06:59 06:59 06:59
Intake Total 1160 / 1160 1200 / 1200
Output Total 1150 / 1150 750 / 750
Balance 450 / 450
[2024-09-20 16:12] VITALS: BP 116/57
--- NOTE | 2024-09-20 16:23 | CM ---
manager grocery reviewed patient's chart and plan is to proceed with rehab placement, hopefully through the [place], , Ext [phone], intake [facility] or [facility]. Guardianship under review and will await update from , case therapist met with
patient today and discussed rehab.
Plan; To follow up with guardianship engraver rubber and attempt to [facility]
[2024-09-20] MEDS: LOVENOX SC (17:18)
--- NOTE | 2024-09-20 17:18 | PTCARENOTE ---
Pt refused sq lovenox, explained why he needed it and why it is important. He refused and was yelling ' I don't need that crap, I know what I need'. Encouraged out of bed activity , pt refused . PT attempted to get out of bed , pt adamantly
refused again .
[2024-09-20 22:58] VITALS: BP 123/54
[2024-09-21 05:24] VITALS: BMI 28.1
[2024-09-21 07:44] VITALS: BP 148/65
[2024-09-21] MEDS: HYDROPHOR 1 APPLIC TOPICAL (08:23)
--- NOTE | 2024-09-21 10:53 | W.PN.HOSP.TC ---
Today's Communication/Plan
-
CM for guardianship
Assessment / Plan
Assessment / Plan
NAD
Scleral Anicteric
MMM
No JVD
CTABL
RRR, S1/S2
Soft, NT, ND, BS+
Warm, Dry
AAO
Irrational thought process, lacks insight
Left leg cellulitis, nonpurulent, completed cefazolin/Keflex 10-day course
Bilateral lower extremity lymphedema continue compression stockings will need lymphedema follow-up on discharge
Right full-thickness rotator cuff tear outpatient orthopedic follow-up
Chronic ambulatory dysfunction continue PT OT
Hyperlipidemia not taking Crestor any further
BPH not taking finasteride any further hypertension not taking metoprolol any further
-Though blood pressure is controlled
Medical decision making capacity
-09/16/2024 determine that he does not have capacity for decision making by psychiatry
-Case management working on guardianship
Anticipated Discharge: > 48 hours
Subjective/Interval History
-
Date of Service: September 21, 2024
Objective Data
-
Vital Signs:
Vital Signs
Temp Pulse Resp BP Pulse Ox
98.3 F 56 20 148/65 99
09/21/24 07:44 09/21/24 07:44 09/21/24 07:44 09/21/24 07:44 09/21/24 07:44
I&O
09/20/24 09/21/24 09/22/24
06:59 06:59 06:59
Intake Total 1200 / 1200 1080 / 1080
Output Total 750 / 750 700 / 700
Balance 450 / 450 380 / 380
Review of Systems
-
History Source: Patient
All other systems: Reviewed and negative
Physical Exam
-
General: No Apparent Distress
Neuro: Awake, Alert, Oriented and AO x 3
Psych: Calm
[2024-09-21 14:49] VITALS: BP 121/55
--- NOTE | 2024-09-21 15:03 | CM ---
Patient seen bedside
Patient with no recollection of this CM.
Explained to patient CM is working on a d/c plan.
Patient does not understand why he cannot return to his apartment. Per patient he has personal belongings there and was doing fine. He needs his scooter fixed and said he is able to get about and care for himself. Patient again stated he cannot be
evicted without going to court. Patient then asked for someone to come and clean him up.
Plan: guardianship pending, placement pending.
[2024-09-21] MEDS: LOVENOX SC (17:01)
[2024-09-21 23:30] VITALS: BP 140/58
[2024-09-22 00:16] VITALS: BP 140/58
[2024-09-22 06:00] VITALS: BMI 27.6
[2024-09-22 07:25] VITALS: BP 134/59
[2024-09-22] MEDS: HYDROPHOR 1 APPLIC TOPICAL (08:35)
--- NOTE | 2024-09-22 10:29 | CM ---
Addendum entered by Amy Singletary 09/22/24 14:41:
Spoke with united states attorney- he has referred case to [place] united states attorney Kumar Adrian (Tony) [facility], p# [phone].
Original Note:
Patient seen bedside.
Patient remains adamant that he can return to his apartment and would like to get him an united states attorney.
CM continues to work with united states attorney for Guardianship.
Spoke with Kathryn from the [place], - she stated she spoke with her desk clerks supervisor and would need a release of information form completed.
CM requested Agnieszka desk clerks supervisor's contact information:
Tracy King LCSW
Social Work Accident Investigator, Homeless Services
[facility]
[phone] x [phone]
--- NOTE | 2024-09-22 13:59 | W.PN.HOSP.TC ---
Today's Communication/Plan
-
Assessment / Plan
Assessment / Plan
NAD
Scleral Anicteric
MMM
No JVD
CTABL
RRR, S1/S2
Soft, NT, ND, BS+
Warm, Dry
AAO
Irrational thought process, lacks insight
Left leg cellulitis, nonpurulent, completed cefazolin/Keflex 10-day course
Bilateral lower extremity lymphedema continue compression stockings will need lymphedema follow-up on discharge
Right full-thickness rotator cuff tear outpatient orthopedic follow-up
Chronic ambulatory dysfunction continue PT OT
Hyperlipidemia not taking Crestor any further
BPH not taking finasteride any further hypertension not taking metoprolol any further
-Though blood pressure is controlled
Medical decision making capacity
-09/16/2024 determine that he does not have capacity for decision making by psychiatry
-Case management working on guardianship
Anticipated Discharge: > 48 hours
Subjective/Interval History
-
Date of Service: September 22, 2024
Seen and examined. No new complaints. No acute overnight events. Clinically remains unchanged.
Objective Data
-
Vital Signs:
Vital Signs
Temp Pulse Resp BP Pulse Ox
98.0 F 57 18 134/59 95
09/22/24 07:25 09/22/24 07:25 09/22/24 07:25 09/22/24 07:25 09/22/24 07:25
I&O
09/21/24 09/22/24 09/23/24
06:59 06:59 06:59
Intake Total 1080 / 1080 900 / 900
Output Total 700 / 700 2024
Balance 380 / 380 -1125 / -1125
[2024-09-22 15:20] VITALS: BP 173/74
[2024-09-22] MEDS: LOVENOX SC (16:25)
[2024-09-22 23:30] VITALS: BP 131/58
[2024-09-23 06:00] VITALS: BMI 27.7
[2024-09-23 07:41] VITALS: BP 130/61
[2024-09-23] MEDS: HYDROPHOR 1 APPLIC TOPICAL (08:17)
--- NOTE | 2024-09-23 12:43 | WOUNDNOTE ---
WON RN NOTE: Followed up today regarding wounds. L knee and thigh are healed, open to air. Edema of legs resolved, Tubigrip removed and recommend continue to moisturize legs with mineral oil daily including L knee. Patient turned self to side, heels
intact. Buttocks improved, same scab remains on R buttock, silicone foam applied. Nurse reports PT attempted to get him walking without success. Pressure ulcer prevention measures reviewed with patient and asked nurse to apply air overlay. Encourage
turning schedule. Brought overlay to and explained to patient why its needed, patient agreeable. Can take air overlay upon discharge if facility has hospital bed, will update discharge instructions.
--- NOTE | 2024-09-23 15:41 | CM ---
Continue d/c efforts.
Guardianship pending.
Plan: placement once guardianship completed.
[2024-09-23 15:45] VITALS: BP 137/49
--- NOTE | 2024-09-23 16:26 | W.PN.HOSP.TC ---
Today's Communication/Plan
-
guardianship
Assessment / Plan
Assessment / Plan
NAD
Scleral Anicteric
MMM
No JVD
CTABL
RRR, S1/S2
Soft, NT, ND, BS+
Warm, Dry
AAO
Irrational thought process, lacks insight
Left leg cellulitis, nonpurulent, completed cefazolin/Keflex 10-day course
Bilateral lower extremity lymphedema continue compression stockings will need lymphedema follow-up on discharge
Right full-thickness rotator cuff tear outpatient orthopedic follow-up
Chronic ambulatory dysfunction continue PT OT
Hyperlipidemia not taking Crestor any further
BPH not taking finasteride any further hypertension not taking metoprolol any further
-Though blood pressure is controlled
Medical decision making capacity
-09/16/2024 determine that he does not have capacity for decision making by psychiatry
-Case management working on guardianship
Anticipated Discharge: 24 - 48 hours
Subjective/Interval History
-
Date of Service: September 23, 2024
Seen and examined. No new complaints. No acute overnight events.
Objective Data
-
Vital Signs:
Vital Signs
Temp Pulse Resp BP Pulse Ox
98.3 F 74 18 137/49 97
09/23/24 15:45 09/23/24 15:45 09/23/24 15:45 09/23/24 15:45 09/23/24 15:45
I&O
09/22/24 09/23/24 09/24/24
06:59 06:59 06:59
Intake Total 900 / 900 600 / 600
Output Total 2024 1000 / 1000 450 / 450
Balance -1125 / -1125 -400 / -400 -450 / -450
[2024-09-23] MEDS: LOVENOX SC (17:08)
[2024-09-23 23:58] VITALS: BP 117/52
[2024-09-24 06:00] VITALS: BMI 27.6
[2024-09-24 07:00] VITALS: BP 127/64
[2024-09-24] MEDS: HYDROPHOR 1 APPLIC TOPICAL (08:20)
--- NOTE | 2024-09-24 13:27 | W.PN.HOSP.TC ---
Today's Communication/Plan
-
Assessment / Plan
Assessment / Plan
NAD
Scleral Anicteric
MMM
No JVD
CTABL
RRR, S1/S2
Soft, NT, ND, BS+
Warm, Dry
AAO
Irrational thought process, lacks insight
Left leg cellulitis, nonpurulent, completed cefazolin/Keflex 10-day course
Bilateral lower extremity lymphedema continue compression stockings will need lymphedema follow-up on discharge
Right full-thickness rotator cuff tear outpatient orthopedic follow-up
Chronic ambulatory dysfunction continue PT OT
Hyperlipidemia not taking Crestor any further
BPH not taking finasteride any further hypertension not taking metoprolol any further
-Though blood pressure is controlled
Medical decision making capacity
-09/16/2024 determine that he does not have capacity for decision making by psychiatry
-Case management working on guardianship
Anticipated Discharge: > 48 hours
Subjective/Interval History
-
Date of Service: September 24, 2024
Seen and examined. No new complaints. No acute overnight events.
Objective Data
-
Vital Signs:
Vital Signs
Temp Pulse Resp BP Pulse Ox
97.4 F 58 16 127/64 99
09/24/24 07:00 09/24/24 07:00 09/24/24 07:00 09/24/24 07:00 09/24/24 07:00
I&O
09/23/24 09/24/24 09/25/24
06:59 06:59 06:59
Intake Total 600 / 600 720 / 720
Output Total 1000 / 1000 1800 / 1800
Balance -400 / -400 -1080 / -1080
[2024-09-24 15:00] VITALS: BP 158/73
[2024-09-24] MEDS: LOVENOX SC (17:11)
[2024-09-24 23:05] VITALS: BP 149/68
[2024-09-25 00:18] VITALS: BP 149/68
[2024-09-25 06:00] VITALS: BMI 28.0
[2024-09-25 07:00] VITALS: BP 131/54
[2024-09-25] MEDS: HYDROPHOR 1 APPLIC TOPICAL (07:40)
--- NOTE | 2024-09-25 14:58 | W.PN.HOSP.TC ---
Today's Communication/Plan
-
For guardianship
Assessment / Plan
Assessment / Plan
NAD
Scleral Anicteric
MMM
No JVD
CTABL
RRR, S1/S2
Soft, NT, ND, BS+
Warm, Dry
AAO
Irrational thought process, lacks insight
Left leg cellulitis, nonpurulent, completed cefazolin/Keflex 10-day course
Bilateral lower extremity lymphedema continue compression stockings will need lymphedema follow-up on discharge
Right full-thickness rotator cuff tear outpatient orthopedic follow-up
Chronic ambulatory dysfunction continue PT OT
Hyperlipidemia not taking Crestor any further
BPH not taking finasteride any further hypertension not taking metoprolol any further
-Though blood pressure is controlled
Medical decision making capacity
-09/16/2024 determine that he does not have capacity for decision making by psychiatry
-Case management working on guardianship
Anticipated Discharge: > 48 hours
Subjective/Interval History
-
Date of Service: September 25, 2024
seen and examiend. clinically unchanged.
Objective Data
-
Vital Signs:
Vital Signs
Temp Pulse Resp BP Pulse Ox
97.6 F 58 16 131/54 98
09/25/24 07:00 09/25/24 07:00 09/25/24 07:00 09/25/24 07:00 09/25/24 07:00
I&O
09/24/24 09/25/24 09/26/24
06:59 06:59 06:59
Intake Total 720 / 720 480 / 480
Output Total 1800 / 1800 1850 / 1850
Balance -1080 / -1080 -1370 / -1370
[2024-09-25] MEDS: LOVENOX SC (17:10)
[2024-09-25 23:06] VITALS: BP 136/69
[2024-09-26 07:00] VITALS: BP 130/63
[2024-09-26] MEDS: HYDROPHOR 1 APPLIC TOPICAL (07:53)
--- NOTE | 2024-09-26 14:37 | CM ---
Disposition efforts continue.
Working with ip technology transactions attorney for possible guardianship.
Plan: placement
[2024-09-26 14:49] VITALS: BP 140/57; PULSE 64; O2SAT 99
[2024-09-26 15:00] VITALS: BP 140/57
--- NOTE | 2024-09-26 15:41 | W.PN.HOSP.TC ---
Today's Communication/Plan
-
pending placement
Assessment / Plan
Assessment / Plan
Left leg cellulitis, nonpurulent
- resolved . completed cefazolin/Keflex 10-day course
-Bilateral lower extremity lymphedema continue compression stockings will need lymphedema follow-up on discharge
Right full-thickness rotator cuff tear outpatient orthopedic follow-up
Chronic ambulatory dysfunction continue PT OT
Hyperlipidemia
not taking Crestor any further
BPH
-not taking finasteride any further
Essential hypertension
- not taking metoprolol any further
-Though blood pressure is controlled
Medical decision making capacity
-09/16/2024 determine that he does not have capacity for decision making by psychiatry
-Case management working on guardianship
Full code
Anticipated Discharge: Today
Subjective/Interval History
-
Date of Service: September 26, 2024
no reported medical problems
Objective Data
-
Vital Signs:
Vital Signs
Temp Pulse Resp BP Pulse Ox
97.5 F 61 20 130/63 99
09/26/24 07:00 09/26/24 07:00 09/26/24 07:00 09/26/24 07:00 09/26/24 07:00
I&O
09/25/24 09/26/24 09/27/24
06:59 06:59 06:59
Intake Total 480 / 480 480 / 480
Output Total 1850 / 1850 1000 / 1000
Balance -1370 / -1370 -520 / -520
Review of Systems
-
Respiratory: Reports No Symptoms
Cardiac: Reports No Symptoms
Abdomen/GI: Reports No Symptoms
Physical Exam
-
General: Negative Appears in Distress
HEENT: Negative Oxygen
Neuro: Awake, Alert and Oriented
[2024-09-26] MEDS: LOVENOX SC (18:10)
[2024-09-26 23:10] VITALS: BP 154/68
[2024-09-27 07:45] VITALS: BP 129/61
[2024-09-27] MEDS: HYDROPHOR 1 APPLIC TOPICAL (09:37)
--- NOTE | 2024-09-27 14:05 | W.PN.HOSP.TC ---
Today's Communication/Plan
-
ongoing placement effort
Assessment / Plan
Assessment / Plan
Left leg cellulitis, nonpurulent
- resolved . completed cefazolin/Keflex 10-day course
-Bilateral lower extremity lymphedema continue compression stockings will need lymphedema follow-up on discharge
Right full-thickness rotator cuff tear outpatient orthopedic follow-up
Chronic ambulatory dysfunction continue PT OT
Hyperlipidemia
not taking Crestor any further
BPH
-not taking finasteride any further
Essential hypertension
- not taking metoprolol any further
-Though blood pressure is controlled
Medical decision making capacity
-09/16/2024 determine that he does not have capacity for decision making by psychiatry
-Case management working on guardianship
Full code
Anticipated Discharge: > 48 hours
Subjective/Interval History
-
Date of Service: September 27, 2024
no reported problems
Objective Data
-
Vital Signs:
Vital Signs
Temp Pulse Resp BP Pulse Ox
98.1 F 63 18 129/61 99
09/27/24 07:45 09/27/24 07:45 09/27/24 07:45 09/27/24 07:45 09/27/24 07:45
I&O
09/26/24 09/27/24 09/28/24
06:59 06:59 06:59
Intake Total 480 / 480 900 / 900 480 / 480
Output Total 1000 / 1000 1725 / 1725 825 / 825
Balance -520 / -520 -825 / -825 -345 / -345
Review of Systems
-
Respiratory: Reports No Symptoms
Cardiac: Reports No Symptoms
Abdomen/GI: Reports No Symptoms
Physical Exam
-
General: Negative Appears in Distress
HEENT: Negative Oxygen
Neuro: Awake, Alert and Oriented
--- NOTE | 2024-09-27 15:30 | CM ---
Patient seen bedside.
Disposition efforts continue.
Working with civil rights attorney for possible guardianship.
Plan: placement
[2024-09-27 15:33] VITALS: BP 114/53
[2024-09-27] MEDS: LOVENOX SC (16:53)
[2024-09-27] MEDS: TYLENOL 650 MG PO (22:43)
[2024-09-27 23:30] VITALS: BP 117/65
[2024-09-28 00:25] VITALS: BP 117/65
--- NOTE | 2024-09-28 06:07 | DOWNTIME ---
There was a [employer] Downtime on 09/28/2024 from 0100 to 09/29/2023 at 0420 . Downtime documentation of patient's care, including medication administrations, has been reconciled in the electronic record per guidelines. Refer to the
patient's paper chart under the miscellaneous tab to see printed paper medication records and downtime forms.
[2024-09-28] MEDS: HYDROPHOR 1 APPLIC TOPICAL (07:33)
[2024-09-28 07:41] VITALS: BP 121/55
[2024-09-28] MEDS: TYLENOL 650 MG PO ×2 (07:47→21:10)
[2024-09-28 15:34] VITALS: BP 123/54
--- NOTE | 2024-09-28 16:13 | CM ---
Patient seen bedside.
Disposition efforts continue.
Working with criminal defense attorney for possible guardianship.
Plan: placement
--- NOTE | 2024-09-28 16:25 | W.PN.HOSP.TC ---
Today's Communication/Plan
-
ongoing disposition effort
Assessment / Plan
Assessment / Plan
Left leg cellulitis, nonpurulent
-resolved . completed cefazolin/Keflex 10-day course
-Bilateral lower extremity lymphedema continue compression stockings will need lymphedema follow-up on discharge
Right full-thickness rotator cuff tear
-outpatient orthopedic follow-up
Chronic ambulatory dysfunction
-continue PT OT
Hyperlipidemia
-not taking Crestor any further
BPH
-not taking finasteride any further
Essential hypertension
- not taking metoprolol any further
-Though blood pressure is controlled
Medical decision making capacity
-09/16/2024 determine that he does not have capacity for decision making by psychiatry
-Case management working on guardianship
Full code
Anticipated Discharge: > 48 hours
Subjective/Interval History
-
Date of Service: September 28, 2024
No reported new problems
Objective Data
-
Vital Signs:
Vital Signs
Temp Pulse Resp BP Pulse Ox
98.3 F 67 18 123/54 99
09/28/24 15:34 09/28/24 15:34 09/28/24 15:34 09/28/24 15:34 09/28/24 15:34
I&O
09/27/24 09/28/24 09/29/24
06:59 06:59 06:59
Intake Total 900 / 900 960 / 960
Output Total 1725 / 1725 2024 650 / 650
Balance -825 / -825 -1065 / -1065 -650 / -650
Review of Systems
-
Respiratory: Reports No Symptoms
Cardiac: Reports No Symptoms
Abdomen/GI: Reports No Symptoms
Physical Exam
-
General: Negative Appears in Distress
HEENT: Negative Oxygen
Neuro: Awake, Alert and No Motor Deficits
Psych: Calm
[2024-09-28] MEDS: LOVENOX SC (16:33)
[2024-09-28 23:15] VITALS: BP 121/49
[2024-09-29 07:47] VITALS: BP 119/99
[2024-09-29] MEDS: HYDROPHOR 1 APPLIC TOPICAL (10:29)
--- NOTE | 2024-09-29 13:39 | W.PN.HOSP.TC ---
Today's Communication/Plan
-
dispo planning
see competency eval in update note
Assessment / Plan
Assessment / Plan
Left leg cellulitis, nonpurulent
-resolved . completed cefazolin/Keflex 10-day course
-Bilateral lower extremity lymphedema continue compression stockings will need lymphedema follow-up on discharge
Right full-thickness rotator cuff tear
-outpatient orthopedic follow-up
Chronic ambulatory dysfunction
-continue PT OT
Hyperlipidemia
-not taking Crestor any further
BPH
-not taking finasteride any further
Essential hypertension
- not taking metoprolol any further
-Though blood pressure is controlled
Medical decision making capacity
-09/16/2024 determine that he does not have capacity for decision making by psychiatry
-Case management working on guardianship
Full code
Anticipated Discharge: Today
Subjective/Interval History
-
Date of Service: September 29, 2024
No reported problems overnight
Objective Data
-
Vital Signs:
Vital Signs
Temp Pulse Resp BP Pulse Ox
97.8 F 57 14 119/99 99
09/29/24 07:47 09/29/24 07:47 09/29/24 07:47 09/29/24 07:47 09/29/24 07:47
I&O
09/28/24 09/29/24 09/30/24
06:59 06:59 06:59
Intake Total 960 / 960 0 / 0
Output Total 2024 1400 / 1400
Balance -1065 / -1065 -1400 / -1400
Review of Systems
-
Respiratory: Reports No Symptoms
Cardiac: Reports No Symptoms
Abdomen/GI: Reports No Symptoms
Physical Exam
-
General: Negative Appears in Distress
HEENT: Negative Oxygen
Neuro: Awake, Alert and No Motor Deficits
Psych: Calm
--- NOTE | 2024-09-29 14:00 | W.PN.UPDATE ---
Update Note
Progress Note Update
I have done brief evaluation for Mr. Arvizu today regarding his decision making capacity.
1. Housing - Mr Gallegos stating his home addresses is [address] [place], [place]. Does not recall being evicted and declined to acknowledge that abnormality he does not have a place to return to. I personally cannot verify this
information that reportedly patient house is in disarray and not in a livable condition. Mr Gallegos is not able to provide any solid plan to remedy his housing situation.
2. Meals - Mr Gallegos stated of paying meals on wheels for the food. He states that he occasionally does grocery but unable to provide details how he transports himself to the store.
3. Finances - He states that he was paying 180 dollar/month to [facility]. Not able to provide me details of any back name where he holds an account. Unable to clarify how he pays his due to [employer].
4. 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 He states of holding many jobs but does not remember the last place he used to work at.
5. Family support - He has one sister in [place] that he has not been in touch with for many years and does not have any contact number for that.
6. Primary care visits - Patient does not remember when was the lat time he was seen by primary care. Remains vague about regular medication. [facility] records mentions patient being on few medication from previous visit records although
patient is not taking any medication currently. Unable to provide me any details of outpatient pharmacy that patient had medications filled in the past.
7. Current hospitalization - Patient cant remember the events leading to this hospitalization. Per Mr Gallegos EMS was called by someone and was brought in to hospital for no clear reason.
Of note Mr Gallegos remains very brisk and not willing to engage in any meaningful conversation to help his condition. This has been the continuous behavior over the last 3 weeks of hospitalization as have been informed to me by multiple staff members
and have noticed myself as well.
Mr Gallegos continues to forget the most vital parts of discussion with different staff members. Mr Gallegos lack any insight of his current condition.
Despite clarifying the housing situation Mr Gallegos continues to demand when he can be discharged from the hospital.
In my opinion Mr Gallegos is not capable of any decision making and would benefit with legal guardianship.
[2024-09-29 15:00] VITALS: BP 122/57
[2024-09-29] MEDS: LOVENOX SC (17:07)
[2024-09-29 23:03] VITALS: BP 150/61
[2024-09-30 07:25] VITALS: BP 143/65
[2024-09-30] MEDS: HYDROPHOR 1 APPLIC TOPICAL (09:47)
--- NOTE | 2024-09-30 14:09 | W.PN.HOSP.TC ---
Today's Communication/Plan
-
Discharge planning
guardianship application process underway
Assessment / Plan
Assessment / Plan
Left leg cellulitis, nonpurulent
-resolved . completed cefazolin/Keflex 10-day course
-Bilateral lower extremity lymphedema continue compression stockings will need lymphedema follow-up on discharge
Right full-thickness rotator cuff tear
-outpatient orthopedic follow-up
Chronic ambulatory dysfunction
-continue PT OT
Hyperlipidemia
-not taking Crestor any further
BPH
-not taking finasteride any further
Essential hypertension
- not taking metoprolol any further
- BP controlled
Medical decision making capacity
- 09/16 determine that he does not have capacity for decision making by psychiatry
- 09/29 Did decision making capacity myself as needed 2 physician igor by [facility]
- CM working on guardianship application
Full code
Anticipated Discharge: > 48 hours
Subjective/Interval History
-
Date of Service: September 30, 2024
No reported problems overnight
Objective Data
-
Vital Signs:
Vital Signs
Temp Pulse Resp BP Pulse Ox
97.3 F 58 18 143/65 94
09/30/24 07:25 09/30/24 07:25 09/30/24 07:25 09/30/24 07:25 09/30/24 07:25
I&O
09/29/24 09/30/24 10/01/24
06:59 06:59 06:59
Intake Total 0 / 0 1440 / 1440
Output Total 1400 / 1400 450 / 450
Balance -1400 / -1400 990 / 990
Review of Systems
-
Respiratory: Reports No Symptoms
Cardiac: Reports No Symptoms
Abdomen/GI: Reports No Symptoms
Physical Exam
-
General: Negative Appears in Distress
HEENT: Negative Oxygen
Neuro: Awake, Alert and No Motor Deficits
Psych: Calm
[2024-09-30 15:34] VITALS: BP 131/57
[2024-09-30] MEDS: LOVENOX SC (18:42)
[2024-09-30 23:08] VITALS: BP 151/66
[2024-10-01] MEDS: HYDROPHOR TOPICAL (07:48)
[2024-10-01 07:50] VITALS: BP 132/65
--- NOTE | 2024-10-01 13:12 | W.PN.HOSP.TC ---
Today's Communication/Plan
-
pending guardianship application
placement effort
Assessment / Plan
Assessment / Plan
Left leg cellulitis, nonpurulent
-resolved . completed cefazolin/Keflex 10-day course
-Bilateral lower extremity lymphedema continue compression stockings will need lymphedema follow-up on discharge
Right full-thickness rotator cuff tear
-outpatient orthopedic follow-up
Chronic ambulatory dysfunction
-continue PT OT
Hyperlipidemia
-not taking Crestor any further
BPH
-not taking finasteride any further
Essential hypertension
- not taking metoprolol any further
- BP controlled
Medical decision making capacity
- 09/16 determine that he does not have capacity for decision making by psychiatry
- 09/29 Did decision making capacity myself as needed 2 physician [place] by [facility]
- CM working on guardianship application
Full code
Anticipated Discharge: > 48 hours
Subjective/Interval History
-
Date of Service: October 01, 2024
No reported problems
Objective Data
-
Vital Signs:
Vital Signs
Temp Pulse Resp BP Pulse Ox
97.7 F 63 18 132/65 98
10/01/24 07:50 10/01/24 07:50 10/01/24 07:50 10/01/24 07:50 10/01/24 07:50
I&O
09/30/24 10/01/24 10/02/24
06:59 06:59 06:59
Intake Total 1440 / 1440 1060 / 1060
Output Total 450 / 450 1300 / 1300
Balance 990 / 990 -240 / -240
Physical Exam
-
General: Negative Appears in Distress
HEENT: Negative Oxygen
Neuro: Awake, Alert and No Motor Deficits
Psych: Calm
[2024-10-01 15:31] VITALS: BP 142/56
[2024-10-01] MEDS: LOVENOX SC (17:11)
[2024-10-01 23:24] VITALS: BP 120/74
[2024-10-02 07:00] VITALS: BP 129/6
[2024-10-02] MEDS: HYDROPHOR TOPICAL (09:31)
--- NOTE | 2024-10-02 14:20 | W.PN.HOSP.TC ---
Today's Communication/Plan
-
pending guardianship application
placement after
Assessment / Plan
Assessment / Plan
Left leg cellulitis, nonpurulent
-resolved . completed cefazolin/Keflex 10-day course
-Bilateral lower extremity lymphedema continue compression stockings will need lymphedema follow-up on discharge
Right full-thickness rotator cuff tear
-outpatient orthopedic follow-up
Chronic ambulatory dysfunction
-continue PT OT
Hyperlipidemia
-not taking Crestor any further
BPH
-not taking finasteride any further
Essential hypertension
- not taking metoprolol any further
- BP controlled
Medical decision making capacity
- 09/16 determine that he does not have capacity for decision making by psychiatry
- 09/29 Did decision making capacity myself as needed 2 physician igor by [facility]
- CM working on guardianship application
Full code
Anticipated Discharge: > 48 hours
Subjective/Interval History
-
Date of Service: October 02, 2024
No reported issues overnight
Objective Data
-
Vital Signs:
Vital Signs
Temp Pulse Resp BP Pulse Ox
97.8 F 66 16 129/6 100
10/02/24 07:00 10/02/24 07:00 10/02/24 07:00 10/02/24 07:00 10/02/24 07:00
I&O
10/01/24 10/02/24 10/03/24
06:59 06:59 06:59
Intake Total 1060 / 1060 480 / 480
Output Total 1300 / 1300 1050 / 1050 100 / 100
Balance -240 / -240 -570 / -570 -100 / -100
Review of Systems
-
Respiratory: Reports No Symptoms
Cardiac: Reports No Symptoms
Abdomen/GI: Reports No Symptoms
Physical Exam
-
General: Negative Appears in Distress
Neuro: Awake, Alert and No Motor Deficits
[2024-10-02 15:00] VITALS: BP 133/68
[2024-10-02] MEDS: LOVENOX SC (17:37)
[2024-10-02 23:30] VITALS: BP 126/75
[2024-10-03 07:00] VITALS: BP 127/60
[2024-10-03] MEDS: HYDROPHOR 1 APPLIC TOPICAL (07:46)
--- NOTE | 2024-10-03 11:53 | CM ---
Patient seen bedside.
Patient continues not not recognize this CM.
Disposition efforts continue.
Working with interventional radiology tech for guardianship.
Plan: placement once guardianship obtained and bed available
--- NOTE | 2024-10-03 14:30 | W.PN.HOSP.TC ---
Today's Communication/Plan
-
pending guardianship application
placement after
Assessment / Plan
Assessment / Plan
Left leg cellulitis, nonpurulent
-resolved . completed cefazolin/Keflex 10-day course
-Bilateral lower extremity lymphedema continue compression stockings will need lymphedema follow-up on discharge
Right full-thickness rotator cuff tear
-outpatient orthopedic follow-up
Chronic ambulatory dysfunction
-continue PT OT
Hyperlipidemia
-not taking Crestor any further
BPH
-not taking finasteride any further
Essential hypertension
- not taking metoprolol any further
- BP controlled
Medical decision making capacity
- 09/16 determine that he does not have capacity for decision making by psychiatry
- 09/29 Dr. Gutierrez did decision making capacity myself as needed 2 physician igor by [facility]
- CM working on guardianship application
Full code
Anticipated Discharge: 24 - 48 hours
Subjective/Interval History
-
Date of Service: October 03, 2024
No acute events
Objective Data
-
Vital Signs:
Vital Signs
Temp Pulse Resp BP Pulse Ox
98.3 F 70 18 127/60 100
10/03/24 07:00 10/03/24 07:00 10/03/24 07:00 10/03/24 07:00 10/03/24 07:00
I&O
10/02/24 10/03/24 10/04/24
06:59 06:59 06:59
Intake Total 480 / 480 327 / 327
Output Total 1050 / 1050 700 / 700
Balance -570 / -570 -373 / -373
Review of Systems
-
History Source: Patient
All other systems: Not reviewed unless documented
Data Reviewed
-
Diagnostic Radiology: Report Reviewed by me
Ultrasound: Report Reviewed by me
[2024-10-03 15:00] VITALS: BP 115/52
--- NOTE | 2024-10-03 15:57 | PHANOTE ---
med rec note- patient stated he take nothing at home and no prescription medication. patient last month 08/2024 filled Toprol xl 25mg daily, Crestor 40mg daily, and then in 05/2024 filled spironolactone 25mg daily and Flomax .4mg daily.
[2024-10-03] MEDS: LOVENOX SC (16:43)
[2024-10-03 23:35] VITALS: BP 118/59
[2024-10-04 07:00] VITALS: BP 134/63
--- NOTE | 2024-10-04 13:46 | CM ---
Patient seen bedside.
Disposition efforts continue.
Working with civil attorney from [place] to appoint guardianship.
Plan: placement once guardianship obtained and bed available
--- NOTE | 2024-10-04 13:53 | W.PN.HOSP.TC ---
Today's Communication/Plan
-
pending guardianship application
placement after
Assessment / Plan
Assessment / Plan
Left leg cellulitis, nonpurulent
-resolved . completed cefazolin/Keflex 10-day course
-Bilateral lower extremity lymphedema continue compression stockings will need lymphedema follow-up on discharge
Right full-thickness rotator cuff tear
-outpatient orthopedic follow-up
Chronic ambulatory dysfunction
-continue PT OT
Hyperlipidemia
-not taking Crestor any further
BPH
-not taking finasteride any further
Essential hypertension
- not taking metoprolol any further
- BP controlled
Medical decision making capacity
- 09/16 determine that he does not have capacity for decision making by psychiatry
- 09/29 Dr. Gutierrez did decision making capacity myself as needed 2 physician igor by [facility]
- CM working on guardianship application
Full code
Anticipated Discharge: > 48 hours
Subjective/Interval History
-
Date of Service: October 04, 2024
No acute events
Objective Data
-
Vital Signs:
Vital Signs
Temp Pulse Resp BP Pulse Ox
98.0 F 71 18 134/63 99
10/04/24 07:00 10/04/24 07:00 10/04/24 07:00 10/04/24 07:00 10/04/24 07:00
I&O
10/03/24 10/04/24 10/05/24
06:59 06:59 06:59
Intake Total 327 / 327 1200 / 1200
Output Total 700 / 700 900 / 900
Balance -373 / -373 300 / 300
Review of Systems
-
History Source: Patient
All other systems: Not reviewed unless documented
Data Reviewed
-
Diagnostic Radiology: Report Reviewed by me
Ultrasound: Report Reviewed by me
[2024-10-04 15:23] VITALS: BP 140/61
[2024-10-04] MEDS: LOVENOX SC (17:36)
[2024-10-04 23:00] VITALS: BP 142/57
[2024-10-05] MEDS: ROBITUSSIN DM 5 ML PO (02:32)
[2024-10-05 07:30] VITALS: BP 121/59
--- NOTE | 2024-10-05 13:49 | W.PN.HOSP.TC ---
Today's Communication/Plan
-
pending guardianship application
placement after
Assessment / Plan
Assessment / Plan
Left leg cellulitis, nonpurulent
-resolved . completed cefazolin/Keflex 10-day course
-Bilateral lower extremity lymphedema continue compression stockings will need lymphedema follow-up on discharge
Right full-thickness rotator cuff tear
-outpatient orthopedic follow-up
Chronic ambulatory dysfunction
-continue PT OT
Hyperlipidemia
-not taking Crestor any further
BPH
-not taking finasteride any further
Essential hypertension
- not taking metoprolol any further
- BP controlled
Medical decision making capacity
- 09/16 determine that he does not have capacity for decision making by psychiatry
- 09/29 Dr. Gutierrez did decision making capacity myself as needed 2 physician igor by [facility]
- CM working on guardianship application
Full code
Anticipated Discharge: > 48 hours
Subjective/Interval History
-
Date of Service: October 05, 2024
No acute events overnight
Objective Data
-
Vital Signs:
Vital Signs
Temp Pulse Resp BP Pulse Ox
98.4 F 70 20 121/59 97
10/05/24 07:30 10/05/24 07:30 10/05/24 07:30 10/05/24 07:30 10/05/24 07:30
I&O
10/04/24 10/05/24 10/06/24
06:59 06:59 06:59
Intake Total 1200 / 1200 1125 / 1125
Output Total 900 / 900 920 / 920
Balance 300 / 300 205 / 205
Review of Systems
-
History Source: Patient
All other systems: Not reviewed unless documented
Data Reviewed
-
Diagnostic Radiology: Report Reviewed by me
Ultrasound: Report Reviewed by me
[2024-10-05 15:48] VITALS: BP 160/76
--- NOTE | 2024-10-05 16:19 | CM ---
Patient seen bedside.
Disposition efforts continue.
Plan: placement once guardianship obtained and skilled bed available
[2024-10-05] MEDS: LOVENOX SC (18:02)
[2024-10-05 23:00] VITALS: BP 123/64
[2024-10-06 07:55] VITALS: BP 130/59
--- NOTE | 2024-10-06 14:30 | W.PN.HOSP.TC ---
Today's Communication/Plan
-
pending guardianship application
placement after
Assessment / Plan
Assessment / Plan
Left leg cellulitis, nonpurulent
-resolved . completed cefazolin/Keflex 10-day course
-Bilateral lower extremity lymphedema continue compression stockings will need lymphedema follow-up on discharge
Right full-thickness rotator cuff tear
-outpatient orthopedic follow-up
Chronic ambulatory dysfunction
-continue PT OT
Hyperlipidemia
-not taking Crestor any further
BPH
-not taking finasteride any further
Essential hypertension
- not taking metoprolol any further
- BP controlled
Medical decision making capacity
- 09/16 determine that he does not have capacity for decision making by psychiatry
- 09/29 Dr. Gutierrez did decision making capacity myself as needed 2 physician igor by [facility]
- CM working on guardianship application
Full code
Anticipated Discharge: > 48 hours
Subjective/Interval History
-
Date of Service: October 06, 2024
no acute events
Objective Data
-
Vital Signs:
Vital Signs
Temp Pulse Resp BP Pulse Ox
97.9 F 63 18 130/59 96
10/06/24 07:55 10/06/24 07:55 10/06/24 07:55 10/06/24 07:55 10/06/24 07:55
I&O
10/05/24 10/06/24 10/07/24
06:59 06:59 06:59
Intake Total 1125 / 1125 1560 / 1560
Output Total 920 / 920 1450 / 1450
Balance 205 / 205 110 / 110
Review of Systems
-
History Source: Patient
All other systems: Not reviewed unless documented
Physical Exam
-
General: Negative Appears in Distress
Neuro: Awake, Alert and No Motor Deficits
Data Reviewed
-
Diagnostic Radiology: Report Reviewed by me
Ultrasound: Report Reviewed by me
--- NOTE | 2024-10-06 15:36 | CM ---
patient seen bedside.
Patient did not know this bottle caser from prior visits.
Patient unsure why he is not being discharged, stating he can go to his home.
He is not aware of any eviction proceedings.
Plan: await guardianship/[placement.
[2024-10-06 15:55] VITALS: BP 127/56
[2024-10-06] MEDS: LOVENOX SC (17:20)
[2024-10-06 23:04] VITALS: BP 127/98
[2024-10-07 07:30] VITALS: BP 129/57
--- NOTE | 2024-10-07 14:23 | CM ---
Continue plan.
Await guardianship and placement.
--- NOTE | 2024-10-07 14:25 | W.PN.HOSP.TC ---
Today's Communication/Plan
-
pending guardianship application
placement after
Assessment / Plan
Assessment / Plan
Left leg cellulitis, nonpurulent
-resolved . completed cefazolin/Keflex 10-day course
-Bilateral lower extremity lymphedema continue compression stockings will need lymphedema follow-up on discharge
Right full-thickness rotator cuff tear
-outpatient orthopedic follow-up
Chronic ambulatory dysfunction
-continue PT OT
Hyperlipidemia
-not taking Crestor any further
BPH
-not taking finasteride any further
Essential hypertension
- not taking metoprolol any further
- BP controlled
Medical decision making capacity
- 09/16 determine that he does not have capacity for decision making by psychiatry
- 09/29 Dr. Gutierrez did decision making capacity myself as needed 2 physician igor by [facility]
- CM working on guardianship application
Full code
Anticipated Discharge: > 48 hours
Subjective/Interval History
-
Date of Service: October 07, 2024
no acute events
Objective Data
-
Vital Signs:
Vital Signs
Temp Pulse Resp BP Pulse Ox
98.7 F 65 20 129/57 97
10/07/24 07:30 10/07/24 07:30 10/07/24 07:30 10/07/24 07:30 10/07/24 07:30
I&O
10/06/24 10/07/24 10/08/24
06:59 06:59 06:59
Intake Total 1560 / 1560 1380 / 1380
Output Total 1450 / 1450 1050 / 1050
Balance 110 / 110 330 / 330
Review of Systems
-
History Source: Patient
All other systems: Not reviewed unless documented
Physical Exam
-
General: Well Developed and Well Nourished; Negative Appears in Distress
HEENT: Normocephalic
Respiratory: Clear to Auscultation
Cardiac: Regular Rhythm and S1/S2
GI: Soft and Nontender
Genito-urinary: No Costovertebral Tender
Musculoskeletal: No Clubbing
Skin: Warm
Neuro: Awake, Alert and No Motor Deficits
Data Reviewed
-
Labs: Labs Reviewed by me
[2024-10-07 15:00] VITALS: BP 127/62
[2024-10-07] MEDS: LOVENOX SC (18:11)
[2024-10-08 00:12] VITALS: BP 147/63
--- NOTE | 2024-10-08 06:27 | PTCARENOTE ---
Pt has not had a BM in 2 days. Offered to pt PRN Senna, Miralax, and dulcolax; pt refused. Abdomen soft non-tender and positive bowel sounds present.
[2024-10-08 08:26] VITALS: BP 115/58
--- NOTE | 2024-10-08 13:29 | W.PN.HOSP.TC ---
Today's Communication/Plan
-
pending guardianship application
placement after
Assessment / Plan
Assessment / Plan
Left leg cellulitis, nonpurulent
-resolved . completed cefazolin/Keflex 10-day course
-Bilateral lower extremity lymphedema continue compression stockings will need lymphedema follow-up on discharge
Right full-thickness rotator cuff tear
-outpatient orthopedic follow-up
Chronic ambulatory dysfunction
-continue PT OT
Hyperlipidemia
-not taking Crestor any further
BPH
-not taking finasteride any further
Essential hypertension
- not taking metoprolol any further
- BP controlled
Medical decision making capacity
- 09/16 determine that he does not have capacity for decision making by psychiatry
- 09/29 Dr. Gutierrez did decision making capacity myself as needed 2 physician igor by [facility]
- CM working on guardianship application
Full code
Anticipated Discharge: > 48 hours
Subjective/Interval History
-
Date of Service: October 08, 2024
no acute events
Objective Data
-
Vital Signs:
Vital Signs
Temp Pulse Resp BP Pulse Ox
98.0 F 61 20 115/58 97
10/08/24 08:26 10/08/24 08:26 10/08/24 08:26 10/08/24 08:26 10/08/24 08:26
I&O
10/07/24 10/08/24 10/09/24
06:59 06:59 06:59
Intake Total 1380 / 1380 1080 / 1080
Output Total 1050 / 1050 550 / 550
Balance 330 / 330 530 / 530
Review of Systems
-
History Source: Patient
All other systems: Not reviewed unless documented
Physical Exam
-
General: Well Developed and Well Nourished; Negative Appears in Distress
HEENT: Normocephalic
Respiratory: Clear to Auscultation
Cardiac: Regular Rhythm and S1/S2
GI: Soft and Nontender
Genito-urinary: No Costovertebral Tender
Musculoskeletal: No Clubbing
Skin: Warm
Neuro: Awake, Alert and No Motor Deficits
Data Reviewed
-
Labs: Labs Reviewed by me
[2024-10-08 15:00] VITALS: BP 137/59
[2024-10-08] MEDS: LOVENOX SC (16:46)
[2024-10-08 23:00] VITALS: BP 137/59
[2024-10-09 07:00] VITALS: BP 136/60
--- NOTE | 2024-10-09 14:07 | W.PN.HOSP.TC ---
Today's Communication/Plan
-
pending guardianship application
placement after
Assessment / Plan
Assessment / Plan
Left leg cellulitis, nonpurulent
-resolved . completed cefazolin/Keflex 10-day course
-Bilateral lower extremity lymphedema continue compression stockings will need lymphedema follow-up on discharge
Right full-thickness rotator cuff tear
-outpatient orthopedic follow-up
Chronic ambulatory dysfunction
-continue PT OT
Hyperlipidemia
-not taking Crestor any further
BPH
-not taking finasteride any further
Essential hypertension
- not taking metoprolol any further
- BP controlled
Medical decision making capacity
- 09/16 determine that he does not have capacity for decision making by psychiatry
- 09/29 Dr. Gutierrez did decision making capacity myself as needed 2 physician igor by [facility]
- CM working on guardianship application
Full code
Anticipated Discharge: Within 24 hours
Subjective/Interval History
-
Date of Service: October 09, 2024
no acute events
Objective Data
-
Vital Signs:
Vital Signs
Temp Pulse Resp BP Pulse Ox
97.8 F 63 20 136/60 94
10/09/24 07:00 10/09/24 07:00 10/09/24 07:00 10/09/24 07:00 10/09/24 07:00
I&O
10/08/24 10/09/24 10/10/24
06:59 06:59 06:59
Intake Total 1080 / 1080 1080 / 1080
Output Total 550 / 550 350 / 350
Balance 530 / 530 730 / 730
Review of Systems
-
History Source: Patient
All other systems: Not reviewed unless documented
Data Reviewed
-
Labs: Labs Reviewed by me
[2024-10-09 15:00] VITALS: BP 135/59
[2024-10-09] MEDS: LOVENOX SC (17:47)
[2024-10-09 23:00] VITALS: BP 142/66
[2024-10-10 07:25] VITALS: BP 104/65
[2024-10-10 10:12] VITALS: BMI 27.4
--- NOTE | 2024-10-10 10:15 | CM ---
Continue plan.
Await guardianship and placement.
[2024-10-10 14:48] VITALS: BP 123/56
--- NOTE | 2024-10-10 15:49 | W.PN.HOSP.TC ---
Today's Communication/Plan
-
Placement
Assessment / Plan
Assessment / Plan
Left leg cellulitis, nonpurulent
-resolved . completed cefazolin/Keflex 10-day course
-Bilateral lower extremity lymphedema continue compression stockings will need lymphedema follow-up on discharge
Right full-thickness rotator cuff tear
-outpatient orthopedic follow-up
Chronic ambulatory dysfunction
-continue PT OT
Hyperlipidemia
-not taking Crestor any further
BPH
-not taking finasteride any further
Essential hypertension
- not taking metoprolol any further
- BP controlled
Medical decision making capacity
- 09/16 determine that he does not have capacity for decision making by psychiatry
- 09/29 Dr. Gutierrez did decision making capacity myself as needed 2 physician eval by [facility]
- working on guardianship application
Full code
Anticipated Discharge: 24 - 48 hours
Subjective/Interval History
-
Date of Service: October 10, 2024
Objective Data
-
Vital Signs:
Vital Signs
Temp Pulse Resp BP Pulse Ox
98.3 F 71 20 123/56 95
10/10/24 14:48 10/10/24 14:48 10/10/24 14:48 10/10/24 14:48 10/10/24 14:48
I&O
10/09/24 10/10/24 10/11/24
06:59 06:59 06:59
Intake Total 1080 / 1080 960 / 960
Output Total 350 / 350 550 / 550
Balance 730 / 730 410 / 410
Physical Exam
-
General: Well Developed and No Apparent Distress
HEENT: Normocephalic, Atraumatic and Moist Mucous Membranes
Respiratory: Clear to Auscultation
Cardiac: Regular Rhythm and S1/S2; Negative Murmur, Rub or Gallop
GI: Soft, Nontender, Nondistended and Normal Bowel Sounds; Negative Organomegaly
Rectal: Deferred by Provider
Musculoskeletal: No Clubbing, No Cyanosis and No Edema
Skin: Negative Rash
Neuro: Nonfocal/Grossly Intact
[2024-10-10] MEDS: LOVENOX SC (17:28)
[2024-10-10 23:20] VITALS: BP 130/52
[2024-10-11 07:21] VITALS: BP 129/58
[2024-10-11 15:00] VITALS: BP 120/53
--- NOTE | 2024-10-11 16:16 | W.PN.HOSP.TC ---
Today's Communication/Plan
-
Ongoing placement
Assessment / Plan
Assessment / Plan
Left leg cellulitis, nonpurulent
-resolved . completed cefazolin/Keflex 10-day course
-Bilateral lower extremity lymphedema continue compression stockings will need lymphedema follow-up on discharge
Right full-thickness rotator cuff tear
-outpatient orthopedic follow-up
Chronic ambulatory dysfunction
-continue PT OT
Hyperlipidemia
-not taking Crestor any further
BPH
-not taking finasteride any further
Essential hypertension
- not taking metoprolol any further
- BP controlled
Medical decision making capacity
- 09/16 determine that he does not have capacity for decision making by psychiatry
- 09/29 Dr. Gutierrez did decision making capacity myself as needed 2 physician eval by [facility]
- working on guardianship application
Full code
Anticipated Discharge: 24 - 48 hours
Subjective/Interval History
-
Date of Service: October 11, 2024
Objective Data
-
Vital Signs:
Vital Signs
Temp Pulse Resp BP Pulse Ox
98.0 F 61 18 120/53 97
10/11/24 15:00 10/11/24 15:00 10/11/24 15:00 10/11/24 15:00 10/11/24 15:00
I&O
10/10/24 10/11/24 10/12/24
06:59 06:59 06:59
Intake Total 960 / 960 1080 / 1080
Output Total 550 / 550 1250 / 1250
Balance 410 / 410 -170 / -170
Physical Exam
-
General: Well Developed and No Apparent Distress
HEENT: Normocephalic, Atraumatic and Moist Mucous Membranes
Respiratory: Clear to Auscultation
Cardiac: Regular Rhythm and S1/S2; Negative Murmur, Rub or Gallop
GI: Soft, Nontender, Nondistended and Normal Bowel Sounds; Negative Organomegaly
Rectal: Deferred by Provider
Musculoskeletal: No Clubbing, No Cyanosis and No Edema
Skin: Negative Rash
Neuro: Nonfocal/Grossly Intact
[2024-10-11] MEDS: LOVENOX SC (16:40)
[2024-10-11 19:50] VITALS: BP 122/98
[2024-10-11 23:40] VITALS: BP 135/60
[2024-10-12 07:00] VITALS: BP 122/58
[2024-10-12 15:00] VITALS: BP 133/69
--- NOTE | 2024-10-12 15:24 | W.PN.HOSP.TC ---
Today's Communication/Plan
-
Placement
Assessment / Plan
Assessment / Plan
Left leg cellulitis, nonpurulent
-resolved . completed cefazolin/Keflex 10-day course
-Bilateral lower extremity lymphedema continue compression stockings will need lymphedema follow-up on discharge
Right full-thickness rotator cuff tear
-outpatient orthopedic follow-up
Chronic ambulatory dysfunction
-continue PT OT
Hyperlipidemia
-not taking Crestor any further
BPH
-not taking finasteride any further
Essential hypertension
- not taking metoprolol any further
- BP controlled
Medical decision making capacity
- 09/16 determine that he does not have capacity for decision making by psychiatry
- 09/29 Dr. Gutierrez did decision making capacity myself as needed 2 physician eval by [facility]
- working on guardianship application
Full code
Anticipated Discharge: 24 - 48 hours
Subjective/Interval History
-
Date of Service: October 12, 2024
Objective Data
-
Vital Signs:
Vital Signs
Temp Pulse Resp BP Pulse Ox
97.4 F 60 20 122/58 99
10/12/24 07:00 10/12/24 07:00 10/12/24 07:00 10/12/24 07:00 10/12/24 07:00
I&O
10/11/24 10/12/24 10/13/24
06:59 06:59 06:59
Intake Total 1080 / 1080 1080 / 1080
Output Total 1250 / 1250 1700 / 1700
Balance -170 / -170 -620 / -620
Physical Exam
-
General: Well Developed and No Apparent Distress
HEENT: Normocephalic, Atraumatic and Moist Mucous Membranes
Respiratory: Clear to Auscultation
Cardiac: Regular Rhythm and S1/S2; Negative Murmur, Rub or Gallop
GI: Soft, Nontender, Nondistended and Normal Bowel Sounds; Negative Organomegaly
Rectal: Deferred by Provider
Musculoskeletal: No Clubbing, No Cyanosis and No Edema
Skin: Negative Rash
Neuro: Nonfocal/Grossly Intact
--- NOTE | 2024-10-12 16:22 | CM ---
Continue to await guardianship hearing.
One guardianship obtained, skilled placement.
Plan: skilled rehab
[2024-10-12] MEDS: LOVENOX SC (17:16)
[2024-10-12 23:40] VITALS: BP 136/71
[2024-10-13 07:00] VITALS: BP 147/69
[2024-10-13 15:00] VITALS: BP 133/58
[2024-10-13] MEDS: LOVENOX SC (15:04)
--- NOTE | 2024-10-13 15:43 | W.PN.HOSP.TC ---
Today's Communication/Plan
-
Placement
Assessment / Plan
Assessment / Plan
Placement
Anticipated Discharge: 24 - 48 hours
Subjective/Interval History
-
Date of Service: October 13, 2024
Objective Data
-
Vital Signs:
Vital Signs
Temp Pulse Resp BP Pulse Ox
97.5 F 64 18 147/69 100
10/13/24 07:00 10/13/24 07:00 10/13/24 07:00 10/13/24 07:00 10/13/24 07:00
I&O
10/12/24 10/13/24 10/14/24
06:59 06:59 06:59
Intake Total 1080 / 1080 1140 / 1140
Output Total 1700 / 1700 1350 / 1350
Balance -620 / -620 -210 / -210
Physical Exam
-
General: Well Developed and No Apparent Distress
HEENT: Normocephalic, Atraumatic and Moist Mucous Membranes
Respiratory: Clear to Auscultation
Cardiac: Regular Rhythm and S1/S2; Negative Murmur, Rub or Gallop
GI: Soft, Nontender, Nondistended and Normal Bowel Sounds; Negative Organomegaly
Rectal: Deferred by Provider
Musculoskeletal: No Clubbing, No Cyanosis and No Edema
Skin: Negative Rash
Neuro: Nonfocal/Grossly Intact
[2024-10-13 23:45] VITALS: BP 124/61
[2024-10-14 07:36] VITALS: BP 130/62
--- NOTE | 2024-10-14 14:46 | W.PN.HOSP.TC ---
Today's Communication/Plan
-
Pending guardianship and placement.
Assessment / Plan
Assessment / Plan
Left leg cellulitis, nonpurulent
-resolved . completed cefazolin/Keflex 10-day course
-Bilateral lower extremity lymphedema continue compression stockings will need lymphedema follow-up on discharge
Right full-thickness rotator cuff tear
-outpatient orthopedic follow-up
Chronic ambulatory dysfunction
-continue PT OT
Hyperlipidemia
-not taking Crestor any further
BPH
-not taking finasteride any further
Essential hypertension
- not taking metoprolol any further
- BP controlled
Medical decision making capacity
- 09/16 determine that he does not have capacity for decision making by psychiatry
- 09/29 Dr. Gutierrez did decision making capacity myself as needed 2 physician eval by [facility]
- working on guardianship application
Full code
Anticipated Discharge: 24 - 48 hours
Subjective/Interval History
-
Date of Service: October 14, 2024
Objective Data
-
Vital Signs:
Vital Signs
Temp Pulse Resp BP Pulse Ox
97.3 F 55 17 130/62 99
10/14/24 07:36 10/14/24 07:36 10/14/24 07:36 10/14/24 07:36 10/14/24 07:36
I&O
10/13/24 10/14/24 10/15/24
06:59 06:59 06:59
Intake Total 1140 / 1140 480 / 480
Output Total 1350 / 1350 750 / 750
Balance -210 / -210 -270 / -270
Physical Exam
-
General: Well Developed and No Apparent Distress
HEENT: Normocephalic, Atraumatic and Moist Mucous Membranes
Respiratory: Clear to Auscultation
Cardiac: Regular Rhythm and S1/S2; Negative Murmur, Rub or Gallop
GI: Soft, Nontender, Nondistended and Normal Bowel Sounds; Negative Organomegaly
Rectal: Deferred by Provider
Musculoskeletal: No Clubbing, No Cyanosis and No Edema
Skin: Negative Rash
Neuro: Nonfocal/Grossly Intact
[2024-10-14] MEDS: LOVENOX SC (14:57)
[2024-10-14 15:28] VITALS: BP 146/76
--- NOTE | 2024-10-14 16:47 | CM ---
Awaiting guardianship and skilled rehab/LTC in [place].
CM will continue to follow.
[2024-10-14 23:27] VITALS: BP 131/74
[2024-10-15 08:30] VITALS: BP 114/56
--- NOTE | 2024-10-15 10:43 | W.PN.HOSP.TC ---
Today's Communication/Plan
-
Pending legal guardianship
Assessment / Plan
Assessment / Plan
Left leg cellulitis, nonpurulent
-resolved . completed cefazolin/Keflex 10-day course
-Bilateral lower extremity lymphedema continue compression stockings will need lymphedema follow-up on discharge
Right full-thickness rotator cuff tear
-outpatient orthopedic follow-up
Chronic ambulatory dysfunction
-continue PT OT
Hyperlipidemia
-not taking Crestor any further
BPH
-not taking finasteride any further
Essential hypertension
- not taking metoprolol any further
- BP controlled
Medical decision making capacity
- 09/16 determine that he does not have capacity for decision making by psychiatry
- 09/29 Dr. Gutierrez did decision making capacity myself as needed 2 physician eval by [facility]
- CM working on guardianship application
Full code
Anticipated Discharge: > 48 hours
Subjective/Interval History
-
Date of Service: October 15, 2024
Seen and examined at the bedside. No acute events overnight. AFVSS this more
Pending legal guardianship and placement
Objective Data
-
Vital Signs:
Vital Signs
Temp Pulse Resp BP Pulse Ox
97.4 F 57 18 114/56 98
10/15/24 08:30 10/15/24 08:30 10/15/24 08:30 10/15/24 08:30 10/15/24 08:30
I&O
10/14/24 10/15/24 10/16/24
06:59 06:59 06:59
Intake Total 480 / 480 840 / 840
Output Total 750 / 750 900 / 900
Balance -270 / -270 -60 / -60
Review of Systems
-
History Source: Patient
All other systems: Reviewed and negative
Physical Exam
-
General: Well Developed, Well Nourished, No Apparent Distress and Comfortable
HEENT: Normocephalic, Atraumatic and Moist Mucous Membranes
Respiratory: Clear to Auscultation and Non Labored Respirations
Cardiac: Regular Rhythm and S1/S2; Negative Murmur, Rub or Gallop
GI: Soft, Nontender, Nondistended and Normal Bowel Sounds
Musculoskeletal: No Clubbing, No Cyanosis and No Edema
Skin: Warm; Negative Rash
Neuro: AO x 3 and Nonfocal/Grossly Intact
Psych: Calm
[2024-10-15 15:15] VITALS: BP 114/57
[2024-10-15] MEDS: LOVENOX SC (17:30)
[2024-10-15 23:31] VITALS: BP 131/53
[2024-10-16 08:06] VITALS: BP 125/58
--- NOTE | 2024-10-16 10:27 | W.PN.HOSP.TC ---
Today's Communication/Plan
-
Pending legal guardianship
Fingernail clippers if available
Assessment / Plan
Assessment / Plan
Left leg cellulitis, nonpurulent
-resolved . completed cefazolin/Keflex 10-day course
-Bilateral lower extremity lymphedema continue compression stockings will need lymphedema follow-up on discharge
Right full-thickness rotator cuff tear
-outpatient orthopedic follow-up
Chronic ambulatory dysfunction
-continue PT OT
Hyperlipidemia
-not taking Crestor any further
BPH
-not taking finasteride any further
Essential hypertension
- not taking metoprolol any further
- BP controlled
Medical decision making capacity
- 09/16 determine that he does not have capacity for decision making by psychiatry
- 09/29 Dr. Gutierrez did decision making capacity myself as needed 2 physician igor by [facility]
- CM working on guardianship application
Full code
Anticipated Discharge: > 48 hours
Subjective/Interval History
-
Date of Service: October 16, 2024
No acute events. Patient requests fingernail clippers which we do not have. Still AFVSS
Pending legal guardianship and placement
Objective Data
-
Vital Signs:
Vital Signs
Temp Pulse Resp BP Pulse Ox
97.2 F 56 16 125/58 98
10/16/24 08:06 10/16/24 08:06 10/16/24 08:06 10/16/24 08:06 10/16/24 08:06
I&O
10/15/24 10/16/24 10/17/24
06:59 06:59 06:59
Intake Total 840 / 840 720 / 720
Output Total 900 / 900 1150 / 1150
Balance -60 / -60 -430 / -430
Review of Systems
-
History Source: Patient
All other systems: Reviewed and negative
Physical Exam
-
General: Well Developed, No Apparent Distress and Comfortable
HEENT: Normocephalic, Atraumatic and Moist Mucous Membranes
Respiratory: Clear to Auscultation and Non Labored Respirations
Cardiac: Regular Rhythm and S1/S2; Negative Murmur
GI: Soft, Nontender, Nondistended and Normal Bowel Sounds
Musculoskeletal: No Clubbing, No Cyanosis and No Edema
Skin: Warm, Dry, Normal Turgor and Other (Long fingernails); Negative Rash
Neuro: AO x 3 and Nonfocal/Grossly Intact
Psych: Calm
[2024-10-16 14:32] VITALS: BP 130/65
[2024-10-16] MEDS: LOVENOX SC (17:02)
[2024-10-16 23:34] VITALS: BP 144/55
[2024-10-17 07:00] VITALS: BP 126/60
--- NOTE | 2024-10-17 10:00 | WOUNDNOTE ---
HOLA JOLLEY NOTE: Followed up with patient for reported pressure injuries on legs. Assessed patient's legs along with nurse Ko, no pressure ulcers visible. Patient has old healed ulcers.
--- NOTE | 2024-10-17 14:30 | CM ---
Patient seen bedside.
Patient awaiting guardianship in [place].
PT continues to recommend skilled rehab.
Plan: skilled rehab once guardianship hearings completed.
[2024-10-17 15:00] VITALS: BP 114/54
--- NOTE | 2024-10-17 15:47 | W.PN.HOSP.TC ---
Today's Communication/Plan
-
Placement
Assessment / Plan
Assessment / Plan
Left leg cellulitis, nonpurulent
-resolved . completed cefazolin/Keflex 10-day course
-Bilateral lower extremity lymphedema continue compression stockings will need lymphedema follow-up on discharge
Right full-thickness rotator cuff tear
-outpatient orthopedic follow-up
Chronic ambulatory dysfunction
-continue PT OT
Hyperlipidemia
-not taking Crestor any further
BPH
-not taking finasteride any further
Essential hypertension
- not taking metoprolol any further
- BP controlled
Medical decision making capacity
- 09/16 determine that he does not have capacity for decision making by psychiatry
- 09/29 Dr. Gutierrez did decision making capacity myself as needed 2 physician eval by [facility]
- working on guardianship application
Full code
Anticipated Discharge: 24 - 48 hours
Subjective/Interval History
-
Date of Service: October 17, 2024
Objective Data
-
Vital Signs:
Vital Signs
Temp Pulse Resp BP Pulse Ox
97.6 F 59 18 126/60 98
10/17/24 07:00 10/17/24 07:00 10/17/24 07:00 10/17/24 07:00 10/17/24 07:00
I&O
10/16/24 10/17/24 10/18/24
06:59 06:59 06:59
Intake Total 720 / 720 720 / 720
Output Total 1150 / 1150 1300 / 1300
Balance -430 / -430 -580 / -580
Physical Exam
-
General: Well Developed, No Apparent Distress and Comfortable
HEENT: Normocephalic, Atraumatic and Moist Mucous Membranes
Respiratory: Clear to Auscultation and Non Labored Respirations
Cardiac: Regular Rhythm and S1/S2; Negative Murmur
GI: Soft, Nontender, Nondistended and Normal Bowel Sounds
Musculoskeletal: No Clubbing, No Cyanosis and No Edema
Skin: Warm, Dry, Normal Turgor and Other (Long fingernails); Negative Rash
Neuro: AO x 3 and Nonfocal/Grossly Intact
Psych: Calm
[2024-10-17] MEDS: LOVENOX SC (17:57)
[2024-10-17 23:05] VITALS: BP 128/50
[2024-10-18 07:00] VITALS: BP 90/60
[2024-10-18 15:00] VITALS: BP 105/45
--- NOTE | 2024-10-18 15:13 | W.PN.HOSP.TC ---
Today's Communication/Plan
-
Placement
Assessment / Plan
Assessment / Plan
Left leg cellulitis, nonpurulent
-resolved . completed cefazolin/Keflex 10-day course
-Bilateral lower extremity lymphedema continue compression stockings will need lymphedema follow-up on discharge
Right full-thickness rotator cuff tear
-outpatient orthopedic follow-up
Chronic ambulatory dysfunction
-continue PT OT
Hyperlipidemia
-not taking Crestor any further
BPH
-not taking finasteride any further
Essential hypertension
- not taking metoprolol any further
- BP controlled
Medical decision making capacity
- 09/16 determine that he does not have capacity for decision making by psychiatry
- 09/29 Dr. Gutierrez did decision making capacity myself as needed 2 physician eval by [facility]
- working on guardianship application
Full code
Anticipated Discharge: 24 - 48 hours
Subjective/Interval History
-
Date of Service: October 18, 2024
Objective Data
-
Vital Signs:
Vital Signs
Temp Pulse Resp BP Pulse Ox
97.6 F 57 18 90/60 100
10/18/24 07:00 10/18/24 07:00 10/18/24 07:00 10/18/24 07:00 10/18/24 07:00
I&O
10/17/24 10/18/24 10/19/24
06:59 06:59 06:59
Intake Total 720 / 720 720 / 720
Output Total 1300 / 1300 1250 / 1250
Balance -580 / -580 -530 / -530
Physical Exam
-
General: Well Developed, No Apparent Distress and Comfortable
HEENT: Normocephalic, Atraumatic and Moist Mucous Membranes
Respiratory: Clear to Auscultation and Non Labored Respirations
Cardiac: Regular Rhythm and S1/S2; Negative Murmur
GI: Soft, Nontender, Nondistended and Normal Bowel Sounds
Musculoskeletal: No Clubbing, No Cyanosis and No Edema
Skin: Warm, Dry, Normal Turgor and Other (Long fingernails); Negative Rash
Neuro: AO x 3 and Nonfocal/Grossly Intact
Psych: Calm
[2024-10-18] MEDS: LOVENOX SC (17:40)
[2024-10-18 23:22] VITALS: BP 130/57
[2024-10-19 07:30] VITALS: BP 146/80
--- NOTE | 2024-10-19 15:13 | W.PN.HOSP.TC ---
Today's Communication/Plan
-
Placement
Assessment / Plan
Assessment / Plan
Left leg cellulitis, nonpurulent
-resolved . completed cefazolin/Keflex 10-day course
-Bilateral lower extremity lymphedema continue compression stockings will need lymphedema follow-up on discharge
Right full-thickness rotator cuff tear
-outpatient orthopedic follow-up
Chronic ambulatory dysfunction
-continue PT OT
Hyperlipidemia
-not taking Crestor any further
BPH
-not taking finasteride any further
Essential hypertension
- not taking metoprolol any further
- BP controlled
Medical decision making capacity
- 09/16 determine that he does not have capacity for decision making by psychiatry
- 09/29 Dr. Gutierrez did decision making capacity myself as needed 2 physician eval by [facility]
- working on guardianship application
Full code
Anticipated Discharge: 24 - 48 hours
Subjective/Interval History
-
Date of Service: October 19, 2024
Objective Data
-
Vital Signs:
Vital Signs
Temp Pulse Resp BP Pulse Ox
97.8 F 58 20 146/80 99
10/19/24 07:30 10/19/24 07:30 10/19/24 07:30 10/19/24 07:30 10/19/24 09:00
I&O
10/18/24 10/19/24 10/20/24
06:59 06:59 06:59
Intake Total 720 / 720 720 / 720
Output Total 1250 / 1250 650 / 650
Balance -530 / -530 70 / 70
Physical Exam
-
General: Well Developed, No Apparent Distress and Comfortable
HEENT: Normocephalic, Atraumatic and Moist Mucous Membranes
Respiratory: Clear to Auscultation and Non Labored Respirations
Cardiac: Regular Rhythm and S1/S2; Negative Murmur
GI: Soft, Nontender, Nondistended and Normal Bowel Sounds
Musculoskeletal: No Clubbing, No Cyanosis and No Edema
Skin: Warm, Dry, Normal Turgor and Other (Long fingernails); Negative Rash
Neuro: AO x 3 and Nonfocal/Grossly Intact
Psych: Calm
[2024-10-19 15:34] VITALS: BP 146/72
[2024-10-19 15:52] VITALS: BP 146/72
--- NOTE | 2024-10-19 15:54 | CM ---
Patient seen bedside.
Patient awaiting guardianship in [place].
Plan: awaiting guardianship, then skilled rehab.
[2024-10-19] MEDS: LOVENOX SC (19:05)
[2024-10-19 23:23] VITALS: BP 126/79
[2024-10-20 07:30] VITALS: BP 146/64
[2024-10-20 15:00] VITALS: BP 115/51
--- NOTE | 2024-10-20 15:17 | CM ---
Patient seen bedside.
Patient awaiting guardianship in [place].
Plan: awaiting guardianship, then skilled rehab.
--- NOTE | 2024-10-20 16:18 | W.PN.HOSP.TC ---
Today's Communication/Plan
-
Placement
Assessment / Plan
Assessment / Plan
Left leg cellulitis, nonpurulent
-resolved . completed cefazolin/Keflex 10-day course
-Bilateral lower extremity lymphedema continue compression stockings will need lymphedema follow-up on discharge
Right full-thickness rotator cuff tear
-outpatient orthopedic follow-up
Chronic ambulatory dysfunction
-continue PT OT
Hyperlipidemia
-not taking Crestor any further
BPH
-not taking finasteride any further
Essential hypertension
- not taking metoprolol any further
- BP controlled
Medical decision making capacity
- 09/16 determine that he does not have capacity for decision making by psychiatry
- 09/29 Dr. Gutierrez did decision making capacity myself as needed 2 physician eval by [facility]
- working on guardianship application
Full code
Anticipated Discharge: 24 - 48 hours
Subjective/Interval History
-
Date of Service: October 20, 2024
Objective Data
-
Vital Signs:
Vital Signs
Temp Pulse Resp BP Pulse Ox
98.2 F 63 20 115/51 97
10/20/24 15:00 10/20/24 15:00 10/20/24 15:00 10/20/24 15:00 10/20/24 15:00
I&O
10/19/24 10/20/24 10/21/24
06:59 06:59 06:59
Intake Total 720 / 720 1200 / 1200
Output Total 650 / 650 900 / 900
Balance 70 / 70 300 / 300
Physical Exam
-
General: Well Developed, No Apparent Distress and Comfortable
HEENT: Normocephalic, Atraumatic and Moist Mucous Membranes
Respiratory: Clear to Auscultation and Non Labored Respirations
Cardiac: Regular Rhythm and S1/S2; Negative Murmur
GI: Soft, Nontender, Nondistended and Normal Bowel Sounds
Musculoskeletal: No Clubbing, No Cyanosis and No Edema
Skin: Warm, Dry, Normal Turgor and Other (Long fingernails); Negative Rash
Neuro: AO x 3 and Nonfocal/Grossly Intact
Psych: Calm
[2024-10-20] MEDS: LOVENOX SC (17:35)
[2024-10-20 23:09] VITALS: BP 143/75
[2024-10-21 07:30] VITALS: BP 136/64
[2024-10-21 15:24] VITALS: BP 138/74
--- NOTE | 2024-10-21 15:40 | CM ---
Patient seen bedside.
Patient awaiting guardianship in [place].
CM continues to follow.
Plan: awaiting guardianship, then skilled rehab.
--- NOTE | 2024-10-21 15:59 | W.PN.HOSP.TC ---
Today's Communication/Plan
-
Placement
Assessment / Plan
Assessment / Plan
Left leg cellulitis, nonpurulent
-resolved . completed cefazolin/Keflex 10-day course
-Bilateral lower extremity lymphedema continue compression stockings will need lymphedema follow-up on discharge
Right full-thickness rotator cuff tear
-outpatient orthopedic follow-up
Chronic ambulatory dysfunction
-continue PT OT
Hyperlipidemia
-not taking Crestor any further
BPH
-not taking finasteride any further
Essential hypertension
- not taking metoprolol any further
- BP controlled
Medical decision making capacity
- 09/16 determine that he does not have capacity for decision making by psychiatry
- 09/29 Dr. Gutierrez did decision making capacity myself as needed 2 physician eval by [facility]
- working on guardianship application
Full code
Anticipated Discharge: 24 - 48 hours
Subjective/Interval History
-
Date of Service: October 21, 2024
Objective Data
-
Vital Signs:
Vital Signs
Temp Pulse Resp BP Pulse Ox
97.8 F 86 18 138/74 96
10/21/24 15:24 10/21/24 15:24 10/21/24 15:24 10/21/24 15:24 10/21/24 15:24
I&O
10/20/24 10/21/24 10/22/24
06:59 06:59 06:59
Intake Total 1200 / 1200 1320 / 1320
Output Total 900 / 900 900 / 900
Balance 300 / 300 420 / 420
Physical Exam
-
General: Well Developed and No Apparent Distress
HEENT: Normocephalic, Atraumatic and Moist Mucous Membranes
Respiratory: Clear to Auscultation
Cardiac: Regular Rhythm and S1/S2; Negative Murmur, Rub or Gallop
GI: Soft, Nontender, Nondistended and Normal Bowel Sounds; Negative Organomegaly
Rectal: Deferred by Provider
Musculoskeletal: No Clubbing, No Cyanosis and No Edema
Skin: Negative Rash
Neuro: Nonfocal/Grossly Intact
[2024-10-21] MEDS: LOVENOX SC (17:18)
[2024-10-21 22:53] VITALS: BP 138/60
[2024-10-22 07:00] VITALS: BP 152/64
[2024-10-22] MEDS: DESENEX/MITRAZOL/ZEASORB 1 APPLIC TOPICAL ×2 (08:07→20:35)
--- NOTE | 2024-10-22 09:29 | W.PN.HOSP.TC ---
Today's Communication/Plan
-
Discharge planning
Assessment / Plan
Assessment / Plan
Physical exam:
General: Well Developed, Well Nourished and No Apparent Distress
HEENT: Normocephalic, Atraumatic and Moist Mucous Membranes
Respiratory: Clear to Auscultation; Negative Wheezes, Rales or Rhonchi
Cardiac: Regular Rhythm and S1/S2
GI: Soft, Nontender and Nondistended
Musculoskeletal: No Clubbing, No Cyanosis and No Edema
Neuro: Awake, Alert and Oriented
Psych: Calm
A/P:
Left leg cellulitis, nonpurulent
-resolved . completed cefazolin/Keflex 10-day course
-Bilateral lower extremity lymphedema continue compression stockings will need lymphedema follow-up on discharge
Right full-thickness rotator cuff tear
-outpatient orthopedic follow-up
Chronic ambulatory dysfunction
-continue PT OT
Hyperlipidemia
-not taking Crestor any further
BPH
-not taking finasteride any further
Essential hypertension
- not taking metoprolol any further
- BP controlled
Medical decision making capacity
- 09/16 determine that he does not have capacity for decision making by psychiatry
- 09/29 Dr. Gutierrez did decision making capacity myself as needed 2 physician igor by [facility]
- working on guardianship application
Full code
Anticipated Discharge: > 48 hours
Subjective/Interval History
-
Date of Service: October 22, 2024
No new complaints.
Objective Data
-
Vital Signs:
Vital Signs
Temp Pulse Resp BP Pulse Ox
97.5 F 61 18 152/64 100
10/22/24 07:00 10/22/24 07:00 10/22/24 07:00 10/22/24 07:00 10/22/24 07:00
I&O
10/21/24 10/22/24 10/23/24
06:59 06:59 06:59
Intake Total 1320 / 1320 600 / 600
Output Total 900 / 900 450 / 450
Balance 420 / 420 150 / 150
[2024-10-22 15:00] VITALS: BP 114/57
[2024-10-22] MEDS: LOVENOX SC (17:11)
[2024-10-22 23:18] VITALS: BP 126/73
[2024-10-23 07:00] VITALS: BP 107/57
--- NOTE | 2024-10-23 07:33 | W.PN.HOSP.TC ---
Today's Communication/Plan
-
Discharge planning
Assessment / Plan
Assessment / Plan
Physical exam:
General: Well Developed, Well Nourished and No Apparent Distress
HEENT: Normocephalic, Atraumatic and Moist Mucous Membranes
Respiratory: Clear to Auscultation; Negative Wheezes, Rales or Rhonchi
Cardiac: Regular Rhythm and S1/S2
GI: Soft, Nontender and Nondistended
Musculoskeletal: No Clubbing, No Cyanosis and No Edema
Neuro: Awake, Alert and Oriented
Psych: Calm
A/P:
Left leg cellulitis, nonpurulent
-resolved . completed cefazolin/Keflex 10-day course
-Bilateral lower extremity lymphedema continue compression stockings will need lymphedema follow-up on discharge
Right full-thickness rotator cuff tear
-outpatient orthopedic follow-up
Chronic ambulatory dysfunction
-continue PT OT
Hyperlipidemia
-not taking Crestor any further
BPH
-not taking finasteride any further
Essential hypertension
- not taking metoprolol any further
- BP controlled
Medical decision making capacity
- 09/16 determine that he does not have capacity for decision making by psychiatry
- 09/29 Dr. Gutierrez did decision making capacity myself as needed 2 physician igor by [facility]
- working on guardianship application
Full code
Anticipated Discharge: 24 - 48 hours
Subjective/Interval History
-
Date of Service: October 23, 2024
No new complaints.
Objective Data
-
Labs:
Laboratory Results
10/23/24
06:00
WBC Pending
Hgb Pending
Hct Pending
Plt Count Pending
Sodium Pending
Potassium Pending
Chloride Pending
Carbon Dioxide Pending
BUN Pending
Creatinine Pending
Glucose Pending
Calcium Pending
Vital Signs:
Vital Signs
Temp Pulse Resp BP Pulse Ox
97.0 F 82 18 126/73 96
10/22/24 23:18 10/22/24 23:18 10/22/24 23:18 10/22/24 23:18 10/22/24 23:18
I&O
10/22/24 10/23/24 10/24/24
06:59 06:59 06:59
Intake Total 600 / 600 640 / 640
Output Total 450 / 450 1425 / 1425
Balance 150 / 150 -785 / -785
[2024-10-23] MEDS: DESENEX/MITRAZOL/ZEASORB 1 APPLIC TOPICAL ×2 (09:57→21:44)
[2024-10-23 15:00] VITALS: BP 111/53
[2024-10-23] MEDS: LOVENOX SC (17:12)
[2024-10-23 23:50] VITALS: BP 116/54
[2024-10-24 07:14] VITALS: BP 126/6
[2024-10-24] MEDS: DESENEX/MITRAZOL/ZEASORB 1 APPLIC TOPICAL ×2 (08:44→21:40)
--- NOTE | 2024-10-24 14:33 | W.PN.HOSP.TC ---
Today's Communication/Plan
-
Discharge planning
Assessment / Plan
Assessment / Plan
A/P:
Left leg cellulitis, nonpurulent
-resolved . completed cefazolin/Keflex 10-day course
-Bilateral lower extremity lymphedema continue compression stockings will need lymphedema follow-up on discharge
Right full-thickness rotator cuff tear
-outpatient orthopedic follow-up
Chronic ambulatory dysfunction
-continue PT OT
Hyperlipidemia
-not taking Crestor any further
BPH
-not taking finasteride any further
Essential hypertension
- not taking metoprolol any further
- BP controlled
Medical decision making capacity
- 09/16 determine that he does not have capacity for decision making by psychiatry
- 09/29 Dr. Gutierrez did decision making capacity myself as needed 2 physician [place] by [facility]
- working on guardianship application
Full code
Anticipated Discharge: 24 - 48 hours
Subjective/Interval History
-
Date of Service: October 24, 2024
Objective Data
-
Vital Signs:
Vital Signs
Temp Pulse Resp BP Pulse Ox
97.5 F 56 20 126/6 99
10/24/24 07:14 10/24/24 07:14 10/24/24 07:14 10/24/24 07:14 10/24/24 07:14
I&O
10/23/24 10/24/24 10/25/24
06:59 06:59 06:59
Intake Total 640 / 640 840 / 840
Output Total 1425 / 1425 1050 / 1050
Balance -785 / -785 -210 / -210
Physical Exam
-
General: Well Developed and No Apparent Distress
HEENT: Normocephalic, Atraumatic and Moist Mucous Membranes
Respiratory: Clear to Auscultation
Cardiac: Regular Rhythm and S1/S2; Negative Murmur, Rub or Gallop
GI: Soft, Nontender, Nondistended and Normal Bowel Sounds; Negative Organomegaly
Rectal: Deferred by Provider
Musculoskeletal: No Clubbing, No Cyanosis and No Edema
Skin: Negative Rash
Neuro: Nonfocal/Grossly Intact
--- NOTE | 2024-10-24 14:37 | CM ---
Call placed to [employer] to check on status of Guardianship. Per [employer] someone will call or e-mail me back. Update to [facility].
[2024-10-24 15:30] VITALS: BP 131/57
[2024-10-24] MEDS: LOVENOX SC (16:56)
[2024-10-24 23:55] VITALS: BP 125/63
[2024-10-25] MEDS: DESENEX/MITRAZOL/ZEASORB 1 APPLIC TOPICAL ×2 (07:33→21:00)
[2024-10-25 07:54] VITALS: BP 139/54
[2024-10-25 15:27] VITALS: BP 126/52
--- NOTE | 2024-10-25 16:34 | W.PN.HOSP.TC ---
Today's Communication/Plan
-
Placement
Assessment / Plan
Assessment / Plan
A/P:
Left leg cellulitis, nonpurulent
-resolved . completed cefazolin/Keflex 10-day course
-Bilateral lower extremity lymphedema continue compression stockings will need lymphedema follow-up on discharge
Right full-thickness rotator cuff tear
-outpatient orthopedic follow-up
Chronic ambulatory dysfunction
-continue PT OT
Hyperlipidemia
-not taking Crestor any further
BPH
-not taking finasteride any further
Essential hypertension
- not taking metoprolol any further
- BP controlled
Medical decision making capacity
- 09/16 determine that he does not have capacity for decision making by psychiatry
- 09/29 Dr. Gutierrez did decision making capacity myself as needed 2 physician [place] by [facility]
- working on guardianship application
Full code
Anticipated Discharge: 24 - 48 hours
Subjective/Interval History
-
Date of Service: October 25, 2024
Objective Data
-
Vital Signs:
Vital Signs
Temp Pulse Resp BP Pulse Ox
98.4 F 60 18 126/52 94
10/25/24 15:27 10/25/24 15:27 10/25/24 15:27 10/25/24 15:27 10/25/24 15:27
I&O
10/24/24 10/25/24 10/26/24
06:59 06:59 06:59
Intake Total 840 / 840 660 / 660
Output Total 1050 / 1050 1450 / 1450
Balance -210 / -210 -790 / -790
Physical Exam
-
General: Well Developed and No Apparent Distress
HEENT: Normocephalic, Atraumatic and Moist Mucous Membranes
Respiratory: Clear to Auscultation
Cardiac: Regular Rhythm and S1/S2; Negative Murmur, Rub or Gallop
GI: Soft, Nontender, Nondistended and Normal Bowel Sounds; Negative Organomegaly
Rectal: Deferred by Provider
Musculoskeletal: No Clubbing, No Cyanosis and No Edema
Skin: Negative Rash
Neuro: Nonfocal/Grossly Intact
[2024-10-25] MEDS: LOVENOX SC (16:46)
[2024-10-25 23:32] VITALS: BP 128/54
[2024-10-26 07:00] VITALS: BP 130/56
[2024-10-26] MEDS: DESENEX/MITRAZOL/ZEASORB 1 APPLIC TOPICAL ×2 (07:28→19:58)
--- NOTE | 2024-10-26 12:32 | W.PN.HOSP.TC ---
Today's Communication/Plan
-
Placement
Assessment / Plan
Assessment / Plan
A/P:
Left leg cellulitis, nonpurulent
-resolved . completed cefazolin/Keflex 10-day course
-Bilateral lower extremity lymphedema continue compression stockings will need lymphedema follow-up on discharge
Right full-thickness rotator cuff tear
-outpatient orthopedic follow-up
Chronic ambulatory dysfunction
-continue PT OT
Hyperlipidemia
-not taking Crestor any further
BPH
-not taking finasteride any further
Essential hypertension
- not taking metoprolol any further
- BP controlled
Medical decision making capacity
- 09/16 determine that he does not have capacity for decision making by psychiatry
- 09/29 Dr. Gutierrez did decision making capacity myself as needed 2 physician eval by [facility]
- working on guardianship application
Full code
Anticipated Discharge: 24 - 48 hours
Subjective/Interval History
-
Date of Service: October 26, 2024
Objective Data
-
Vital Signs:
Vital Signs
Temp Pulse Resp BP Pulse Ox
98.3 F 64 18 130/56 100
10/26/24 07:00 10/26/24 07:00 10/26/24 07:00 10/26/24 07:00 10/26/24 07:00
I&O
10/25/24 10/26/24 10/27/24
06:59 06:59 06:59
Intake Total 660 / 660 960 / 960
Output Total 1450 / 1450 1405 / 1405
Balance -790 / -790 -445 / -445
Physical Exam
-
General: Well Developed and No Apparent Distress
HEENT: Normocephalic, Atraumatic and Moist Mucous Membranes
Respiratory: Clear to Auscultation
Cardiac: Regular Rhythm and S1/S2; Negative Murmur, Rub or Gallop
GI: Soft, Nontender, Nondistended and Normal Bowel Sounds; Negative Organomegaly
Rectal: Deferred by Provider
Musculoskeletal: No Clubbing, No Cyanosis and No Edema
Skin: Negative Rash
Neuro: Nonfocal/Grossly Intact
[2024-10-26] MEDS: LOVENOX SC (17:45)
[2024-10-26 23:01] VITALS: BP 131/61
[2024-10-27 07:36] VITALS: BP 113/61
[2024-10-27] MEDS: DESENEX/MITRAZOL/ZEASORB TOPICAL (09:14)
--- NOTE | 2024-10-27 13:59 | W.PN.HOSP.TC ---
Today's Communication/Plan
-
Ongoing guardianship proceedings and dispo efforts
Assessment / Plan
Assessment / Plan
A/P:
Left leg cellulitis, nonpurulent
-resolved . completed cefazolin/Keflex 10-day course
-Bilateral lower extremity lymphedema continue compression stockings will need lymphedema follow-up on discharge
Right full-thickness rotator cuff tear
-outpatient orthopedic follow-up
Chronic ambulatory dysfunction
-continue PT OT
Hyperlipidemia
-not taking Crestor any further
BPH
-not taking finasteride any further
Essential hypertension
- not taking metoprolol any further
- BP controlled
Medical decision making capacity
- 09/16 determine that he does not have capacity for decision making by psychiatry
- 09/29 Dr. Gutierrez did decision making capacity myself as needed 2 physician igor by [facility]
- CM working on guardianship application
Full code
Anticipated Discharge: Within 24 hours
Subjective/Interval History
-
Date of Service: October 27, 2024
Voices no specific complaints
Objective Data
-
Vital Signs:
Vital Signs
Temp Pulse Resp BP Pulse Ox
97.7 F 62 20 113/61 98
10/27/24 07:36 10/27/24 07:36 10/27/24 07:36 10/27/24 07:36 10/27/24 07:36
I&O
10/26/24 10/27/24 10/28/24
06:59 06:59 06:59
Intake Total 960 / 960 960 / 960
Output Total 1405 / 1405 1325 / 1325
Balance -445 / -445 -365 / -365
Review of Systems
-
Respiratory: Denies Trouble Breathing
Cardiac: Denies Chest Pain
Abdomen/GI: Denies Nausea or Vomiting
Neuro: Denies Dizzy
Physical Exam
-
General: Comfortable
Respiratory: Non Labored Respirations; Negative Accessory Resp Muscle Use
Neuro: AO x 3
Psych: Calm
[2024-10-27 16:01] VITALS: BP 114/58
--- NOTE | 2024-10-27 17:18 | CM ---
Patient awaiting guardianship in [place].
CM continues to follow.
Plan: awaiting guardianship, then skilled rehab.
[2024-10-27] MEDS: LOVENOX SC (18:27)
[2024-10-27] MEDS: DESENEX/MITRAZOL/ZEASORB 1 APPLIC TOPICAL (19:06)
[2024-10-27 23:19] VITALS: BP 130/72
[2024-10-28 07:52] VITALS: BP 124/58
[2024-10-28] MEDS: DESENEX/MITRAZOL/ZEASORB 1 APPLIC TOPICAL ×2 (09:00→20:51)
--- NOTE | 2024-10-28 09:24 | CM ---
Referrals sent to multiple skilled rehab facilities.
Guardianship still pending.
Plan: skilled rehab once guardianship completed.
--- NOTE | 2024-10-28 14:11 | W.PN.HOSP.TC ---
Today's Communication/Plan
-
Ongoing dispo efforts
Assessment / Plan
Assessment / Plan
A/P:
Left leg cellulitis, nonpurulent
-resolved . completed cefazolin/Keflex 10-day course
-Bilateral lower extremity lymphedema continue compression stockings will need lymphedema follow-up on discharge
Right full-thickness rotator cuff tear
-outpatient orthopedic follow-up
Chronic ambulatory dysfunction
-continue PT OT
Hyperlipidemia
-not taking Crestor any further
BPH
-not taking finasteride any further
Essential hypertension
- not taking metoprolol any further
- BP controlled
Medical decision making capacity
- 09/16 determine that he does not have capacity for decision making by psychiatry
- 09/29 Dr. Gutierrez did decision making capacity myself as needed 2 physician igor by [facility]
- CM working on guardianship application
Full code
Anticipated Discharge: > 48 hours
Subjective/Interval History
-
Date of Service: October 28, 2024
No overnight events.
Discussed with the nursing-no new issues.
Objective Data
-
Vital Signs:
Vital Signs
Temp Pulse Resp BP Pulse Ox
97.5 F 53 18 124/58 100
10/28/24 07:52 10/28/24 07:52 10/28/24 07:52 10/28/24 07:52 10/28/24 07:52
I&O
10/27/24 10/28/24 10/29/24
06:59 06:59 06:59
Intake Total 960 / 960 840 / 840
Output Total 1325 / 1325 1700 / 1700
Balance -365 / -365 -860 / -860
Review of Systems
-
Respiratory: Denies Trouble Breathing
Cardiac: Denies Chest Pain
Abdomen/GI: Denies Nausea or Vomiting
Physical Exam
-
General: Comfortable
Respiratory: Non Labored Respirations; Negative Accessory Resp Muscle Use
Neuro: Awake, Alert and Oriented
Psych: Calm
[2024-10-28 15:01] VITALS: BP 99/68
[2024-10-28] MEDS: LOVENOX SC (17:05)
[2024-10-28 22:00] VITALS: BP 131/63
[2024-10-29 07:31] VITALS: BP 134/56
[2024-10-29] MEDS: DESENEX/MITRAZOL/ZEASORB 1 APPLIC TOPICAL ×2 (09:30→19:22)
--- NOTE | 2024-10-29 12:30 | W.PN.HOSP.TC ---
Today's Communication/Plan
-
Ongoing dispo efforts
Assessment / Plan
Assessment / Plan
A/P:
Left leg cellulitis, nonpurulent
-resolved . completed cefazolin/Keflex 10-day course
-Bilateral lower extremity lymphedema continue compression stockings will need lymphedema follow-up on discharge
Right full-thickness rotator cuff tear
-outpatient orthopedic follow-up
Chronic ambulatory dysfunction
-continue PT OT
Hyperlipidemia
-not taking Crestor any further
BPH
-not taking finasteride any further
Essential hypertension
- not taking metoprolol any further
- BP controlled
Medical decision making capacity
- 09/16 determine that he does not have capacity for decision making by psychiatry
- 09/29 Dr. Gutierrez did decision making capacity myself as needed 2 physician igor by [facility]
- CM working on guardianship application
No new issues - ongoing dispo efforts
Full code
Anticipated Discharge: > 48 hours
Subjective/Interval History
-
Date of Service: October 29, 2024
No new issues -dw RN
Objective Data
-
Vital Signs:
Vital Signs
Temp Pulse Resp BP Pulse Ox
97.4 F 59 18 134/56 99
10/29/24 07:31 10/29/24 07:31 10/29/24 07:31 10/29/24 07:31 10/29/24 07:31
I&O
10/28/24 10/29/24 10/30/24
06:59 06:59 06:59
Intake Total 840 / 840
Output Total 1700 / 1700 450 / 450
Balance -860 / -860 -450 / -450
Review of Systems
-
Respiratory: Denies Trouble Breathing
Cardiac: Denies Chest Pain
Abdomen/GI: Denies Abdominal Pain, Nausea or Vomiting
Physical Exam
-
General: Comfortable
Respiratory: Non Labored Respirations; Negative Accessory Resp Muscle Use
Neuro: Awake, Alert and Oriented
Psych: Calm
[2024-10-29 15:56] VITALS: BP 140/66
[2024-10-29] MEDS: LOVENOX SC (17:16)
[2024-10-29 22:56] VITALS: BP 121/57
[2024-10-30 08:25] VITALS: BP 126/59
[2024-10-30] MEDS: DESENEX/MITRAZOL/ZEASORB TOPICAL (09:29)
--- NOTE | 2024-10-30 14:41 | W.PN.HOSP.TC ---
Today's Communication/Plan
-
Ongoing dispo efforts
Assessment / Plan
Assessment / Plan
A/P:
Left leg cellulitis, nonpurulent
-resolved . completed cefazolin/Keflex 10-day course
-Bilateral lower extremity lymphedema continue compression stockings will need lymphedema follow-up on discharge
Right full-thickness rotator cuff tear
-outpatient orthopedic follow-up
Chronic ambulatory dysfunction
-continue PT OT
Hyperlipidemia
-not taking Crestor any further
BPH
-not taking finasteride any further
Essential hypertension
- not taking metoprolol any further
- BP controlled
Medical decision making capacity
- 09/16 determine that he does not have capacity for decision making by psychiatry
- 09/29 Dr. Gutierrez did decision making capacity myself as needed 2 physician igor by [facility]
- CM working on guardianship application
10/30 No new issues - ongoing dispo efforts
Full code
Anticipated Discharge: 24 - 48 hours
Subjective/Interval History
-
Date of Service: October 30, 2024
No overnight events
No new issues per RN
Objective Data
-
Vital Signs:
Vital Signs
Temp Pulse Resp BP Pulse Ox
98.3 F 55 20 126/59 97
10/30/24 08:25 10/30/24 08:25 10/30/24 08:25 10/30/24 08:25 10/30/24 08:25
I&O
10/29/24 10/30/24 10/31/24
06:59 06:59 06:59
Intake Total 120 / 120
Output Total 450 / 450 1675 / 1675 225 / 225
Balance -450 / -450 -1555 / -1555 -225 / -225
Review of Systems
-
Respiratory: Denies Trouble Breathing
Cardiac: Denies Chest Pain
Abdomen/GI: Denies Abdominal Pain, Nausea or Vomiting
Physical Exam
-
General: Comfortable
Respiratory: Non Labored Respirations; Negative Accessory Resp Muscle Use
Neuro: AO x 3
[2024-10-30 14:54] VITALS: BP 111/52
[2024-10-30] MEDS: LOVENOX SC (19:35)
[2024-10-30 23:20] VITALS: BP 130/57
[2024-10-31] MEDS: DESENEX/MITRAZOL/ZEASORB 1 APPLIC TOPICAL (00:12)
[2024-10-31 07:42] VITALS: BP 121/60
--- NOTE | 2024-10-31 08:43 | W.PN.HOSP.TC ---
Today's Communication/Plan
-
Discharge planning
Assessment / Plan
Assessment / Plan
Physical exam:
General: Well Developed, Well Nourished and No Apparent Distress
HEENT: Normocephalic, Atraumatic and Moist Mucous Membranes
Respiratory: Clear to Auscultation; Negative Wheezes, Rales or Rhonchi
Cardiac: Regular Rhythm and S1/S2
GI: Soft, Nontender and Nondistended
Musculoskeletal: No Clubbing, No Cyanosis and No Edema
Neuro: Awake, Alert and cognitive impairment
Psych: Calm, limited judgment and insight
A/P:
Left leg cellulitis, nonpurulent
-resolved . completed cefazolin/Keflex 10-day course
-Bilateral lower extremity lymphedema continue compression stockings will need lymphedema follow-up on discharge
Right full-thickness rotator cuff tear
-outpatient orthopedic follow-up
Chronic ambulatory dysfunction
-continue PT OT
Hyperlipidemia
-not taking Crestor any further
BPH
-not taking finasteride any further
Essential hypertension
- not taking metoprolol any further
- BP controlled
Medical decision making capacity
- 09/16 determine that he does not have capacity for decision making by psychiatry
- 09/29 Dr. Gutierrez did decision making capacity myself as needed 2 physician igor by [facility]
- working on guardianship application
10/30 No new issues - ongoing dispo efforts
Full code
Anticipated Discharge: 24 - 48 hours
Subjective/Interval History
-
Date of Service: October 31, 2024
No new events.
Objective Data
-
Vital Signs:
Vital Signs
Temp Pulse Resp BP Pulse Ox
97.6 F 60 18 121/60 99
10/31/24 07:42 10/31/24 07:42 10/31/24 07:42 10/31/24 07:42 10/31/24 07:42
I&O
10/30/24 10/31/24 11/01/24
06:59 06:59 06:59
Intake Total 120 / 120 600 / 600
Output Total 1675 / 1675 1625 / 1625
Balance -1555 / -1555 -1025 / -1025
[2024-10-31] MEDS: DESENEX/MITRAZOL/ZEASORB TOPICAL (08:53)
--- NOTE | 2024-10-31 09:35 | CM ---
Referrals sent fo skilled placement/LTC, [facility] is interested, spoke with Jael Doyle [phone], directory of admissions. They would like to come and evaluate patient, however we are still waiting on guardianship so will hold
off until guardian is available to make decisions. Multiple other facilities also interested, but again, need guardianship information.
Plan: skilled rehab/LTC one guardianship obtained.
[2024-10-31 15:10] VITALS: BP 124/52
[2024-10-31] MEDS: LOVENOX SC (17:18)
[2024-10-31 23:25] VITALS: BP 133/56
[2024-11-01] MEDS: DESENEX/MITRAZOL/ZEASORB 1 APPLIC TOPICAL ×3 (00:54→20:56)
[2024-11-01 07:45] VITALS: BP 136/60
--- NOTE | 2024-11-01 12:21 | CM ---
Patient awaiting guardianship in [place].
CM continues to follow.
Plan: awaiting guardianship, then skilled rehab.
[2024-11-01 15:43] VITALS: BP 118/57
--- NOTE | 2024-11-01 16:01 | W.PN.HOSP.TC ---
Today's Communication/Plan
-
Ongoing placement
Assessment / Plan
Assessment / Plan
A/P:
Left leg cellulitis, nonpurulent
-resolved . completed cefazolin/Keflex 10-day course
-Bilateral lower extremity lymphedema continue compression stockings will need lymphedema follow-up on discharge
Right full-thickness rotator cuff tear
-outpatient orthopedic follow-up
Chronic ambulatory dysfunction
-continue PT OT
Hyperlipidemia
-not taking Crestor any further
BPH
-not taking finasteride any further
Essential hypertension
- not taking metoprolol any further
- BP controlled
Medical decision making capacity
- 09/16 determine that he does not have capacity for decision making by psychiatry
- 09/29 Dr. Gutierrez did decision making capacity myself as needed 2 physician eval by [facility]
- working on guardianship application
10/30 No new issues - ongoing dispo efforts
Full code
Anticipated Discharge: 24 - 48 hours
Subjective/Interval History
-
Date of Service: November 01, 2024
Objective Data
-
Vital Signs:
Vital Signs
Temp Pulse Resp BP Pulse Ox
98.1 F 65 18 118/57 96
11/01/24 15:43 11/01/24 15:43 11/01/24 15:43 11/01/24 15:43 11/01/24 15:43
I&O
10/31/24 11/01/24 11/02/24
06:59 06:59 06:59
Intake Total 600 / 600 480 / 480
Output Total 1625 / 1625 750 / 750
Balance -1025 / -1025 -270 / -270
Physical Exam
-
General: Comfortable
Respiratory: Non Labored Respirations; Negative Accessory Resp Muscle Use
Neuro: AO x 3
[2024-11-01] MEDS: LOVENOX SC (16:39)
--- NOTE | 2024-11-02 00:22 | PTCARENOTE ---
Patient refused to let staff get his vital signs.
[2024-11-02 07:30] VITALS: BP 133/57
[2024-11-02] MEDS: DESENEX/MITRAZOL/ZEASORB 1 APPLIC TOPICAL ×2 (12:01→19:52)
[2024-11-02 15:00] VITALS: BP 136/76
--- NOTE | 2024-11-02 15:34 | W.PN.HOSP.TC ---
Today's Communication/Plan
-
Placement
Assessment / Plan
Assessment / Plan
A/P:
Left leg cellulitis, nonpurulent
-resolved . completed cefazolin/Keflex 10-day course
-Bilateral lower extremity lymphedema continue compression stockings will need lymphedema follow-up on discharge
Right full-thickness rotator cuff tear
-outpatient orthopedic follow-up
Chronic ambulatory dysfunction
-continue PT OT
Hyperlipidemia
-not taking Crestor any further
BPH
-not taking finasteride any further
Essential hypertension
- not taking metoprolol any further
- BP controlled
Medical decision making capacity
- 09/16 determine that he does not have capacity for decision making by psychiatry
- 09/29 Dr. Gutierrez did decision making capacity myself as needed 2 physician eval by [facility]
- working on guardianship application
10/30 No new issues - ongoing dispo efforts
Full code
Anticipated Discharge: 24 - 48 hours
Subjective/Interval History
-
Date of Service: November 02, 2024
Objective Data
-
Vital Signs:
Vital Signs
Temp Pulse Resp BP Pulse Ox
98.7 F 59 16 133/57 96
11/02/24 07:30 11/02/24 07:30 11/02/24 07:30 11/02/24 07:30 11/02/24 07:30
I&O
11/01/24 11/02/24 11/03/24
06:59 06:59 06:59
Intake Total 480 / 480 840 / 840
Output Total 750 / 750 1250 / 1250
Balance -270 / -270 -410 / -410
Physical Exam
-
General: Comfortable
Respiratory: Non Labored Respirations; Negative Accessory Resp Muscle Use
Neuro: AO x 3
[2024-11-02] MEDS: LOVENOX SC (17:39)
--- NOTE | 2024-11-02 22:06 | PTCARENOTE ---
Patient refusing nightly vital signs.
--- NOTE | 2024-11-03 03:49 | DOWNTIME ---
There was a [employer] Client [employer] Operator Downtime on 11/03/2024 from 0200 to 11/04/2023 at 0318 . Downtime documentation of patient's care, including medication administrations, has been reconciled in the electronic record per guidelines. Refer to the
patient's paper chart under the miscellaneous tab to see printed paper medication records and downtime forms.
[2024-11-03 07:30] VITALS: BP 136/60
[2024-11-03] MEDS: DESENEX/MITRAZOL/ZEASORB 1 APPLIC TOPICAL ×2 (10:10→20:16)
--- NOTE | 2024-11-03 11:23 | CM ---
Patient awaiting guardianship in [place].
CM continues to follow.
Plan: awaiting guardianship, then skilled rehab.
[2024-11-03 16:00] VITALS: BP 124/57
--- NOTE | 2024-11-03 16:03 | W.PN.HOSP.TC ---
Today's Communication/Plan
-
Placement
Assessment / Plan
Assessment / Plan
A/P:
Left leg cellulitis, nonpurulent
-resolved . completed cefazolin/Keflex 10-day course
-Bilateral lower extremity lymphedema continue compression stockings will need lymphedema follow-up on discharge
Right full-thickness rotator cuff tear
-outpatient orthopedic follow-up
Chronic ambulatory dysfunction
-continue PT OT
Hyperlipidemia
-not taking Crestor any further
BPH
-not taking finasteride any further
Essential hypertension
- not taking metoprolol any further
- BP controlled
Medical decision making capacity
- 09/16 determine that he does not have capacity for decision making by psychiatry
- 09/29 Dr. Gutierrez did decision making capacity myself as needed 2 physician eval by [facility]
- working on guardianship application
10/30 No new issues - ongoing dispo efforts
Full code
Anticipated Discharge: 24 - 48 hours
Subjective/Interval History
-
Date of Service: November 03, 2024
Objective Data
-
Vital Signs:
Vital Signs
Temp Pulse Resp BP Pulse Ox
97.6 F 60 20 136/60 95
11/03/24 07:30 11/03/24 07:30 11/03/24 07:30 11/03/24 07:30 11/03/24 07:30
I&O
11/02/24 11/03/24 11/04/24
06:59 06:59 06:59
Intake Total 840 / 840 1080 / 1080
Output Total 1250 / 1250 1200 / 1200
Balance -410 / -410 -120 / -120
Physical Exam
-
General: Comfortable
Respiratory: Non Labored Respirations; Negative Accessory Resp Muscle Use
Neuro: AO x 3
[2024-11-03] MEDS: LOVENOX SC (18:55)
--- NOTE | 2024-11-03 23:12 | PTCARENOTE ---
Pt refusing to let staff obtain vital signs.
[2024-11-04 08:00] VITALS: BP 136/67
[2024-11-04] MEDS: DESENEX/MITRAZOL/ZEASORB 1 APPLIC TOPICAL ×2 (08:48→22:42)
--- NOTE | 2024-11-04 14:54 | CM ---
Addendum entered by Amy Singletary 11/04/24 15:20:
Spoke with Jael from [facility], Chichi Abraham, P# [phone] will be out to evaluate on Thursday.
Addendum entered by Amy Singletary 11/04/24 15:08:
Spoke with court appointed guardian, he is in agreement with skilled rehab referrals being sent out to facilities.
Patient with medicare primary insurance.
Mr Darden will be available to discuss discharge plans on Thursday.
Referrals placed via [facility].
Left message for [facility] Jael to see if they are still interested in accepting Mr Gallegos, await TCB.
Plan: skilled rehab once bed available.
Original Note:
TC to Court appointed Guardian Ad Darden Esq. p# [phone], admission updated.
Copy of Temporary Guardianship scanned to chart.
[2024-11-04 15:45] VITALS: BP 124/53
[2024-11-04] MEDS: LOVENOX SC (18:05)
--- NOTE | 2024-11-04 18:22 | W.PN.HOSP.TC ---
Today's Communication/Plan
-
Placement
Assessment / Plan
Assessment / Plan
A/P:
Left leg cellulitis, nonpurulent
-resolved . completed cefazolin/Keflex 10-day course
-Bilateral lower extremity lymphedema continue compression stockings will need lymphedema follow-up on discharge
Right full-thickness rotator cuff tear
-outpatient orthopedic follow-up
Chronic ambulatory dysfunction
-continue PT OT
Hyperlipidemia
-not taking Crestor any further
BPH
-not taking finasteride any further
Essential hypertension
- not taking metoprolol any further
- BP controlled
Medical decision making capacity
- 09/16 determine that he does not have capacity for decision making by psychiatry
- 09/29 Dr. Gutierrez did decision making capacity myself as needed 2 physician eval by [facility]
- working on guardianship application
10/30 No new issues - ongoing dispo efforts
Full code
Anticipated Discharge: > 48 hours
Subjective/Interval History
-
Date of Service: November 04, 2024
Objective Data
-
Vital Signs:
Vital Signs
Temp Pulse Resp BP Pulse Ox
97.7 F 61 16 124/53 98
11/04/24 15:45 11/04/24 15:45 11/04/24 15:45 11/04/24 15:45 11/04/24 15:45
I&O
11/03/24 11/04/24 11/05/24
06:59 06:59 06:59
Intake Total 1080 / 1080 960 / 960 780 / 780
Output Total 1200 / 1200 650 / 650 720 / 720
Balance -120 / -120 310 / 310 60 / 60
Physical Exam
-
General: Comfortable
Respiratory: Non Labored Respirations; Negative Accessory Resp Muscle Use
Neuro: AO x 3
[2024-11-05] VITALS: BP 142/57
[2024-11-05 07:30] VITALS: BP 135/65
[2024-11-05] MEDS: DESENEX/MITRAZOL/ZEASORB 1 APPLIC TOPICAL (08:52)
--- NOTE | 2024-11-05 13:30 | W.PN.HOSP.TC ---
Today's Communication/Plan
-
pending guardianship
Assessment / Plan
Assessment / Plan
A/P:
Left leg cellulitis, nonpurulent
-resolved . completed cefazolin/Keflex 10-day course
-Bilateral lower extremity lymphedema continue compression stockings will need lymphedema follow-up on discharge
Right full-thickness rotator cuff tear
-outpatient orthopedic follow-up
Chronic ambulatory dysfunction
-continue PT OT
Hyperlipidemia
-not taking Crestor any further
BPH
-not taking finasteride any further
Essential hypertension
- not taking metoprolol any further
- BP controlled
Medical decision making capacity
- 09/16 determine that he does not have capacity for decision making by psychiatry
- 09/29 Dr. Gutierrez did decision making capacity myself as needed 2 physician igor by [facility]
- CM working on guardianship application
10/30 No new issues - ongoing dispo efforts
Full code
Total time spent on today's encounter was 40 minutes which included time spent in counseling the patient/family regarding diagnosis and treatment plan as listed above, goals of care, and symptom management. Case was discussed with nursing staff,
specialists, and care coordinators/case management. All labs and imaging personally reviewed by me. Remainder the time spent in detailed review of previous records, lab data, imaging, and other medical provider documentation.
Anticipated Discharge: > 48 hours
Subjective/Interval History
-
Date of Service: November 05, 2024
Patient seen and examined at bedside, denies any chest pain or shortness of breath, no abdominal pain, no nausea, no vomiting, no diarrhea or constipation.
Still pending guardianship paperwork.
Objective Data
-
Vital Signs:
Vital Signs
Temp Pulse Resp BP Pulse Ox
97.8 F 57 22 135/65 96
11/05/24 07:30 11/05/24 07:30 11/05/24 07:30 11/05/24 07:30 11/05/24 07:30
I&O
11/04/24 11/05/24 11/06/24
06:59 06:59 06:59
Intake Total 960 / 960 780 / 780
Output Total 650 / 650 2044 / 2044
Balance 310 / 310 -1265 / -1265
Physical Exam
-
General: Well Developed, Well Nourished, No Apparent Distress and Comfortable
HEENT: Normocephalic, Atraumatic, Moist Mucous Membranes, No Ptosis, PERRLA and Nose Appears Normal
Respiratory: Clear to Auscultation and Non Labored Respirations
Cardiac: Regular Rhythm and S1/S2
Breast: Deferred by me
GI: Soft, Nontender, Nondistended and Normal Bowel Sounds
Genito-urinary: No Costovertebral Tender
Musculoskeletal: No Clubbing, No Cyanosis and No Edema
Skin: Warm
Neuro: Awake, Alert, Oriented, AO x 3 and No Motor Deficits
Psych: Calm
Data Reviewed
-
Diagnostic Radiology: Image personally visualized and interpreted and Report Reviewed by me
CT Scan: Image personally visualized and interpreted and Report Reviewed by me
Ultrasound: Image personally visualized and interpreted and Report Reviewed by me
MRI: Image personally visualized and interpreted and Report Reviewed by me
Medical Tests (Nuc Med, Echo etc): Image personally visualized and interpreted and Report Reviewed by me
Labs: Labs Reviewed by me
Old Records: Reviewed
[2024-11-05 15:00] VITALS: BP 130/62
[2024-11-05] MEDS: LOVENOX SC (18:48)
[2024-11-05] MEDS: DESENEX/MITRAZOL/ZEASORB TOPICAL (22:21)
--- NOTE | 2024-11-05 23:00 | PTCARENOTE ---
Pt. refusing vital signs and wants to be left alone. Will reassess situation.
[2024-11-06 07:30] VITALS: BP 136/87
[2024-11-06] MEDS: DESENEX/MITRAZOL/ZEASORB 1 APPLIC TOPICAL (09:36)
--- NOTE | 2024-11-06 10:28 | W.PN.HOSP.TC ---
Today's Communication/Plan
-
Still pending guardianship
Assessment / Plan
Assessment / Plan
A/P:
Left leg cellulitis, nonpurulent
-resolved . completed cefazolin/Keflex 10-day course
-Bilateral lower extremity lymphedema continue compression stockings will need lymphedema follow-up on discharge
Right full-thickness rotator cuff tear
-outpatient orthopedic follow-up
Chronic ambulatory dysfunction
-continue PT OT
Hyperlipidemia
-not taking Crestor any further
BPH
-not taking finasteride any further
Essential hypertension
- not taking metoprolol any further
- BP controlled
Medical decision making capacity
- 09/16 determine that he does not have capacity for decision making by psychiatry
- 09/29 Dr. Gutierrez did decision making capacity with the Hospitalist as needed 2 physician igor by [facility]
- CM working on guardianship application
10/30 No new issues - ongoing dispo efforts
Full code
Total time spent on today's encounter was 40 minutes which included time spent in counseling the patient/family regarding diagnosis and treatment plan as listed above, goals of care, and symptom management. Case was discussed with nursing staff,
specialists, and care coordinators/case management. All labs and imaging personally reviewed by me. Remainder the time spent in detailed review of previous records, lab data, imaging, and other medical provider documentation.
Anticipated Discharge: > 48 hours
Subjective/Interval History
-
Date of Service: November 06, 2024
Patient seen and examined at bedside, denies any chest pain or shortness of breath, no abdominal pain, no nausea, no vomiting, no diarrhea or constipation.
Objective Data
-
Labs:
Laboratory Results
11/06/24
06:00
WBC Pending
Hgb Pending
Hct Pending
Plt Count Pending
Sodium Pending
Potassium Pending
Chloride Pending
Carbon Dioxide Pending
BUN Pending
Creatinine Pending
Glucose Pending
Calcium Pending
Vital Signs:
Vital Signs
Temp Pulse Resp BP Pulse Ox
97.7 F 60 18 136/87 96
11/06/24 07:30 11/06/24 07:30 11/06/24 07:30 11/06/24 07:30 11/06/24 07:30
I&O
11/05/24 11/06/24 11/07/24
06:59 06:59 06:59
Intake Total 780 / 780 720 / 720
Output Total 2044 / 2044 1000 / 1000
Balance -1265 / -1265 -280 / -280
Physical Exam
-
General: Well Developed, Well Nourished, No Apparent Distress and Comfortable
HEENT: Normocephalic, Atraumatic, Moist Mucous Membranes, No Ptosis, PERRLA and Nose Appears Normal
Respiratory: Clear to Auscultation and Non Labored Respirations
Cardiac: Regular Rhythm and S1/S2
Breast: Deferred by me
GI: Soft, Nontender, Nondistended and Normal Bowel Sounds
Genito-urinary: No Costovertebral Tender
Musculoskeletal: No Clubbing, No Cyanosis and No Edema
Skin: Warm
Neuro: Awake, Alert, Oriented, AO x 3 and No Motor Deficits
Psych: Calm
Data Reviewed
-
Diagnostic Radiology: Image personally visualized and interpreted and Report Reviewed by me
CT Scan: Image personally visualized and interpreted and Report Reviewed by me
Ultrasound: Image personally visualized and interpreted and Report Reviewed by me
MRI: Image personally visualized and interpreted and Report Reviewed by me
Medical Tests (Nuc Med, Echo etc): Image personally visualized and interpreted and Report Reviewed by me
Labs: Labs Reviewed by me
Old Records: Reviewed
[2024-11-06 15:00] VITALS: BP 140/56
[2024-11-06] MEDS: LOVENOX SC (17:20)
[2024-11-06] MEDS: DESENEX/MITRAZOL/ZEASORB TOPICAL (22:16)
[2024-11-06 23:11] VITALS: BP 127/59
[2024-11-07 07:40] VITALS: BP 109/59
[2024-11-07] MEDS: DESENEX/MITRAZOL/ZEASORB TOPICAL ×2 (09:02→21:47)
--- NOTE | 2024-11-07 12:41 | CM ---
Quiana Darden Esq in to meet with patient.
Chichi from [facility] in to meet with patient.
All documents placed in envelope with patient name and left bedside.
Patient in agreement for skilled rehab. '
Financials need to be worked out prior to facility accepting (bank, SS, funds etc).
Per Guardian, patient has been appointed an assistant city attorney who will also be coming to see the patient at some time.
Plan: skilled rehab once bed available and financials worked out.
[2024-11-07 15:10] VITALS: BP 127/57
--- NOTE | 2024-11-07 16:54 | W.PN.HOSP.TC ---
Today's Communication/Plan
-
Placement
Assessment / Plan
Assessment / Plan
A/P:
Left leg cellulitis, nonpurulent
-resolved . completed cefazolin/Keflex 10-day course
-Bilateral lower extremity lymphedema continue compression stockings will need lymphedema follow-up on discharge
Right full-thickness rotator cuff tear
-outpatient orthopedic follow-up
Chronic ambulatory dysfunction
-continue PT OT
Hyperlipidemia
-not taking Crestor any further
BPH
-not taking finasteride any further
Essential hypertension
- not taking metoprolol any further
- BP controlled
Medical decision making capacity
- 09/16 determine that he does not have capacity for decision making by psychiatry
- 09/29 Dr. Gutierrez did decision making capacity with the Hospitalist as needed 2 physician igor by [facility]
- working on guardianship application
10/30 No new issues - ongoing dispo efforts
Full code
Total time spent on today's encounter was 40 minutes which included time spent in counseling the patient/family regarding diagnosis and treatment plan as listed above, goals of care, and symptom management. Case was discussed with nursing staff,
specialists, and care coordinators/case management. All labs and imaging personally reviewed by me. Remainder the time spent in detailed review of previous records, lab data, imaging, and other medical provider documentation.
Anticipated Discharge: 24 - 48 hours
Subjective/Interval History
-
Date of Service: November 07, 2024
Objective Data
-
Vital Signs:
Vital Signs
Temp Pulse Resp BP Pulse Ox
98.7 F 66 20 127/57 99
11/07/24 15:10 11/07/24 15:10 11/07/24 15:10 11/07/24 15:10 11/07/24 15:10
I&O
04/27/25 04/28/25 04/29/25
06:59 06:59 06:59
Intake Total 720 / 720 820 / 820
Output Total 1000 / 1000 1150 / 1150
Balance -280 / -280 -330 / -330
Physical Exam
-
General: Well Developed, Well Nourished, No Apparent Distress and Comfortable
HEENT: Normocephalic, Atraumatic, Moist Mucous Membranes, No Ptosis, PERRLA and Nose Appears Normal
Respiratory: Clear to Auscultation and Non Labored Respirations
Cardiac: Regular Rhythm and S1/S2
Breast: Deferred by me
GI: Soft, Nontender, Nondistended and Normal Bowel Sounds
Genito-urinary: No Costovertebral Tender
Musculoskeletal: No Clubbing, No Cyanosis and No Edema
Skin: Warm
Neuro: Awake, Alert, Oriented, AO x 3 and No Motor Deficits
Psych: Calm
[2024-11-07] MEDS: LOVENOX SC (17:31)
[2024-11-07 23:30] VITALS: BP 158/60
[2024-11-08 07:29] VITALS: BP 132/58
[2024-11-08] MEDS: DESENEX/MITRAZOL/ZEASORB 1 APPLIC TOPICAL ×2 (08:22→19:53)
--- NOTE | 2024-11-08 13:37 | W.PN.HOSP.TC ---
Today's Communication/Plan
-
Placement
Assessment / Plan
Assessment / Plan
A/P:
Left leg cellulitis, nonpurulent
-resolved . completed cefazolin/Keflex 10-day course
-Bilateral lower extremity lymphedema continue compression stockings will need lymphedema follow-up on discharge
Right full-thickness rotator cuff tear
-outpatient orthopedic follow-up
Chronic ambulatory dysfunction
-continue PT OT
Hyperlipidemia
-not taking Crestor any further
BPH
-not taking finasteride any further
Essential hypertension
- not taking metoprolol any further
- BP controlled
Medical decision making capacity
- 09/16 determine that he does not have capacity for decision making by psychiatry
- 09/29 Dr. Gutierrez did decision making capacity with the Hospitalist as needed 2 physician igor by [facility]
- working on guardianship application
10/30 No new issues - ongoing dispo efforts
Full code
Total time spent on today's encounter was 40 minutes which included time spent in counseling the patient/family regarding diagnosis and treatment plan as listed above, goals of care, and symptom management. Case was discussed with nursing staff,
specialists, and care coordinators/case management. All labs and imaging personally reviewed by me. Remainder the time spent in detailed review of previous records, lab data, imaging, and other medical provider documentation.
Anticipated Discharge: 24 - 48 hours
Subjective/Interval History
-
Date of Service: November 08, 2024
Objective Data
-
Vital Signs:
Vital Signs
Temp Pulse Resp BP Pulse Ox
98.1 F 59 18 132/58 98
11/08/24 07:29 11/08/24 07:29 11/08/24 07:29 11/08/24 07:29 11/08/24 08:20
I&O
11/07/24 11/08/24 11/09/24
06:59 06:59 06:59
Intake Total 820 / 820 960 / 960
Output Total 1150 / 1150 2099 / 2099
Balance -330 / -330 -1140 / -1140
Physical Exam
-
General: Well Developed, Well Nourished, No Apparent Distress and Comfortable
HEENT: Normocephalic, Atraumatic, Moist Mucous Membranes, No Ptosis, PERRLA and Nose Appears Normal
Respiratory: Clear to Auscultation and Non Labored Respirations
Cardiac: Regular Rhythm and S1/S2
Breast: Deferred by me
GI: Soft, Nontender, Nondistended and Normal Bowel Sounds
Genito-urinary: No Costovertebral Tender
Musculoskeletal: No Clubbing, No Cyanosis and No Edema
Skin: Warm
Neuro: Awake, Alert, Oriented, AO x 3 and No Motor Deficits
Psych: Calm
[2024-11-08 14:34] VITALS: BP 143/68
[2024-11-08] MEDS: LOVENOX 40 MG SC (16:27)
--- NOTE | 2024-11-08 17:07 | CM ---
TC from Guardian, researching bank information.
CM continues to follow.
Plan: awaiting skilled rehab
[2024-11-09] MEDS: DESENEX/MITRAZOL/ZEASORB 1 APPLIC TOPICAL ×2 (07:37→19:23)
[2024-11-09 07:52] VITALS: BP 129/49
--- NOTE | 2024-11-09 14:01 | CM ---
TC from Nancy Doyle sun, she will be representing patient and will be out to see tomorrow. (court appointed tape deck installer)
TC from guardilita Olivo Esq, he is working on placement and funding.
Ad will reach out to [facility] re possible transfer to [facility] tomorrow.
Spoke with Jael Yanira from [facility] [phone] option 1 and patient has been accepted for admission.
[facility] Fax is not working, email dc instructions to [email or web address] report# [phone]
Await TCB from Ad Olivo Esq to verify patient can be transferred tomorrow.
--- NOTE | 2024-11-09 14:25 | W.PN.HOSP.TC ---
Today's Communication/Plan
-
Placement
Assessment / Plan
Assessment / Plan
A/P:
Left leg cellulitis, nonpurulent
-resolved . completed cefazolin/Keflex 10-day course
-Bilateral lower extremity lymphedema continue compression stockings will need lymphedema follow-up on discharge
Right full-thickness rotator cuff tear
-outpatient orthopedic follow-up
Chronic ambulatory dysfunction
-continue PT OT
Hyperlipidemia
-not taking Crestor any further
BPH
-not taking finasteride any further
Essential hypertension
- not taking metoprolol any further
- BP controlled
Medical decision making capacity
- 09/16 determine that he does not have capacity for decision making by psychiatry
- 09/29 Dr. Gutierrez did decision making capacity with the Hospitalist as needed 2 physician igor by [facility]
- working on guardianship application
10/30 No new issues - ongoing dispo efforts
Full code
Total time spent on today's encounter was 40 minutes which included time spent in counseling the patient/family regarding diagnosis and treatment plan as listed above, goals of care, and symptom management. Case was discussed with nursing staff,
specialists, and care coordinators/case management. All labs and imaging personally reviewed by me. Remainder the time spent in detailed review of previous records, lab data, imaging, and other medical provider documentation.
Anticipated Discharge: 24 - 48 hours
Subjective/Interval History
-
Date of Service: November 09, 2024
Objective Data
-
Vital Signs:
Vital Signs
Temp Pulse Resp BP Pulse Ox
97.9 F 57 18 129/49 95
11/09/24 07:52 11/09/24 07:52 11/09/24 07:52 11/09/24 07:52 11/09/24 07:52
I&O
11/08/24 11/09/24 11/10/24
06:59 06:59 06:59
Intake Total 960 / 960 1440 / 1440
Output Total 2099 181 / 181
Balance -1140 / -1140 -375 / -375
Physical Exam
-
General: Well Developed, Well Nourished, No Apparent Distress and Comfortable
HEENT: Normocephalic, Atraumatic, Moist Mucous Membranes, No Ptosis, PERRLA and Nose Appears Normal
Respiratory: Clear to Auscultation and Non Labored Respirations
Cardiac: Regular Rhythm and S1/S2
Breast: Deferred by me
GI: Soft, Nontender, Nondistended and Normal Bowel Sounds
Genito-urinary: No Costovertebral Tender
Musculoskeletal: No Clubbing, No Cyanosis and No Edema
Skin: Warm
Neuro: Awake, Alert, Oriented, AO x 3 and No Motor Deficits
Psych: Calm
[2024-11-09] MEDS: LOVENOX 40 MG SC (15:52)
[2024-11-09 16:00] VITALS: BP 125/57
[2024-11-09 23:29] VITALS: BP 130/60
[2024-11-10 07:48] VITALS: BP 118/60
[2024-11-10] MEDS: DESENEX/MITRAZOL/ZEASORB 1 APPLIC TOPICAL (08:54)
--- NOTE | 2024-11-10 10:33 | CM ---
Addendum entered by Amy Singletary 11/10/24 11:54:
Facility stated it was okay to sent MCKENNA Nunez updated.
Addendum entered by Amy Singletary 11/10/24 11:52:
Spoke with guardian, aware of transport time.
Spoke with Jael Doyle, aware of transport time.
Cow Tender Nancy Basurto updated re transport time.
Original Note:
Spoke with patients court appointed personal injury attorney- Nancy Basurto Esq, she will either see patient this afternoon if still here or will see at the skilled facility. p# [phone]
TC to Quiana Darden Esq, p# [phone] left .
TC to Jael Doyle from [facility] [phone] option 1, await TCB.
IMM completed.
Ambulance transport forms on chart.
Plan: [facility] today
[facility]
Report# [phone]
email- [email or web address]
--- NOTE | 2024-11-10 11:19 | W.DS.TRANS ---
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
-
Discharge Instructions:
Discharge Diagnosis/Procedures LLE cellulitis
Failure to thrive.
Diet As tolerated
Activity As tolerated
Instructions:
Stand-Alone Forms:
Changes to Home Medications: No
Discharge Medications:
DC Medications w/original date entered in [facility]
No Meds [No Current Medications] 10/03/24
Home Medication Changes
Pending Results: No
[2024-11-10 15:26] VITALS: BP 138/61
--- NOTE | 2024-11-11 16:04 | CM ---
TC from Jael from [facility] re questions about behavior.
Since Norberto has arrived he has been uncooperative, spitting, he had an elevated temp and has refused Tylenol.
Updated Jael that d/c temp 99 per nursing documentation, no behaviors noted with patient and no spitting.
Per Jael if he continues to refuse treatment he will need to be sent to [facility] for evaluation.
CM updated Guardian Ad Darden Esq that patient was indeed transferred to [facility] and that patient is having behaviors.
== END 2024-11-10 16:17 | DRG 603 ==
LOC: 4 WEST ACU 17:41
PROVIDERS: Internal Medicine; Nurse Practitioner; ADMITTING PHYSICIAN Hospitalist; ATTENDING PHYSICIAN Internal Medicine; CONSULT PHYSICIAN Psychiatry & Neurology Psychiatry; EMERGENCY PHYSICIAN Emergency Medicine; FAMILY PHYSICIAN Family Medicine
DX: L03.116 Cellulitis of left lower limb (principal); Z59.10 Inadequate housing, unspecified; F03.90 Unspecified dementia, unspecified severity, without behavioral disturbance, psychotic disturbance, mood disturbance, and anxiety; R62.7 Adult failure to thrive; R53.1 Weakness; M25.511 Pain in right shoulder; M19.011 Primary osteoarthritis, right shoulder; M75.101 Unspecified rotator cuff tear or rupture of right shoulder, not specified as traumatic; S43.001A Unspecified subluxation of right shoulder joint, initial encounter; F91.9 Conduct disorder, unspecified; F43.20 Adjustment disorder, unspecified; I89.0 Lymphedema, not elsewhere classified; R26.2 Difficulty in walking, not elsewhere classified; I10 Essential (primary) hypertension; E78.5 Hyperlipidemia, unspecified; N40.0 Benign prostatic hyperplasia without lower urinary tract symptoms; F10.90 Alcohol use, unspecified, uncomplicated; W19.XXXA Unspecified fall, initial encounter; Y93.9 Activity, unspecified; Y92.9 Unspecified place or not applicable; Z60.2 Problems related to living alone; Z75.1 Person awaiting admission to adequate facility elsewhere; Z65.3 Problems related to other legal circumstances
CPT/HCPCS: 71046; 73030; 80048; 80053; 81003; 85025; 85027; 93005; 93971; 96374; 96375; 97110; 97163; 97164; 97167; 97530; 99285